=== PATIENT | male | born 1935 | race Caucasian/White ===

== ENCOUNTER 2016-06-06 17:17 | Inpatient (IN) | payer MEDICARE, OTHER ==
[2016-06-06] MEDS ORDERED: Acetaminophen 325 MG Tab PO ONE (17:30)
--- NOTE | 2016-06-06 17:30 | EDM.PDOC ---
ED HPI SEPSIS - General Chief Complaint: Fever Stated Complaint: [facility] Time Seen by Provider: 06/06/16 17:24 Source of Information: Reports: Patient, Family, [facility] records History Limitations: Reports: No limitations, Altered mental status (pleasantly confused. Tends to answer yes to all questions.) - History of Present Illness INITIAL COMMENTS - FREE TEXT/NARRATIVE: 80-year-old male who currently resides at [facility] home but to the hospital by ambulance. Apparently he is alert and oriented and gets around on his own volition without any problems. After his nap today he seemed to be a bit confused and disoriented and actually fell in the hallway. He states he just kind of got tripped up but he has mild organic brain disease and is moderately confused at the time of my exam. Nurses found him in the hallway and therefore his fall was unwitnessed. He denies hitting his head. He denies feeling nauseated or vomiting.family noticed that he is coughing a bit today but wasn't yesterday. Appetite has been good up until today. He always has hesitancy and slow urinary stream with nocturia usually 3-4 times nightly. Known have a big prostate. Unclear whether these had urinary tract infection problems in the past.Family is pretty sure that he did get a flu shot last fall. Symptom Onset Date: 06/06/16 Symptom Onset Time: 15:30 (seemed to be weak and noted fever 101 after getting up from his nap this afternoon) Timing/Duration: Reports: Hour(s):, Sudden onset Severity: moderate Improves with: Reports: None Worsens with: Reports: Movement Context: Denies: sick contact, infection, indwelling cath, IV, travel, chemotherapy, IV drug use, recent hospitalization, recent illness, recent surgery, other Associated Symptoms: Reports: confusion, weakness, cough, fever/chills, malaise ( reported by nursing staff.), other (illness and to start suddenly this afternoon after his nap. He ate a good dinner.). Denies: headaches, seizure, shortness of breath, syncope, chest pain, sputum, diaphoresis (101), loss of appetite, nausea/vomiting Treatments [employer]: Reports: Other (see below) (unclear if he is receiving medication for fever.) - Related Data Allergies/ADRs: Allergies Allergy/AdvReac Type Severity Reaction Status Date / Time No Known Allergies Allergy Verified 06/06/16 17:45 Home Meds: Home Meds Acetaminophen [Tylenol] 650 mg PO Q4H PRN 04/02/14 [History] Donepezil [Aricept] 10 mg PO BEDTIME 04/02/14 [History] Fesoterodine Fumarate [Toviaz] 4 mg PO DAILY 04/02/14 [History] Finasteride 5 mg PO DAILY 04/02/14 [History] Gabapentin [Neurontin] 300 mg PO DAILY 04/02/14 [History] Imatinib [Gleevec] 600 mg PO DAILY 04/02/14 [History] Mag Hydrox/Al Hydrox/Simeth [Mag-Al Plus XS] 30 ml PO Q4H PRN 04/02/14 [History] Meclizine [Antivert] 25 mg PO TID PRN 04/02/14 [History] Melatonin 3 mg PO BEDTIME 04/02/14 [History] Metoprolol Tartrate 50 mg PO BID 04/02/14 [History] Nystatin/Triamcinolone Crm [Mycolog Crm] 30 gm TOP BID PRN 04/02/14 [History] Omeprazole 20 mg PO DAILY 04/02/14 [History] Sennosides/Docusate Sodium [Senna S Tablet] 2 tab PO DAILY PRN 04/02/14 [History ] Tadalafil [Cialis] 20 mg PO DAILY PRN 04/02/14 [History] Tamsulosin [Flomax] 0.4 mg PO DAILY 04/02/14 [History] Warfarin [Coumadin] 2.5 mg PO WE 04/02/14 [History] atorvaSTATin [Lipitor] 10 mg PO BEDTIME 04/02/14 [History] sitaGLIPtin Phosphate [Januvia] 50 mg PO DAILY 04/02/14 [History] Warfarin [Coumadin] 5 mg PO SUMOTUTHFRSA 10/06/14 [History] Acetaminophen 650 mg PO BEDTIME 03/15/16 [History] Gabapentin [Neurontin] 300 mg PO BEDTIME 03/15/16 [History] Loperamide HCl [Anti-Diarrheal] 2 mg PO DAILY PRN 03/15/16 [History] Multivitamin [Multivitamins] 1 each PO DAILY 03/15/16 [History] Potassium Chloride [Klor-Con M20] 30 meq PO DAILY 03/16/16 [History] Sildenafil [Viagra] 1 tab PO DAILY PRN 03/23/16 [History] Bumetanide 2 oz PO DAILY 06/06/16 [History] Bumetanide [Bumex] 0.5 mg PO DAILY PRN MDD prn 06/06/16 [History] Digoxin [Lanoxin] 125 mcg PO DAILY 06/06/16 [History] Diltiazem [Cardizem CD] 240 mg PO DAILY 06/06/16 [History] Diphenhyd/Lidocaine/Nystatin [Magic Mouthwash] 15 ml PO TID 06/06/16 [History] Insulin Glarg,Human.Rec.Analog [Lantus] 10 units SUBCUT ASDIRECTED 06/06/16 [ History] Metoprolol Tartrate [Lopressor] 25 mg PO DAILY PRN 06/06/16 [History] Mupirocin Cream [Bactroban Crm] 1 applic TOP BID 06/06/16 [History] Nystatin [Mycostatin] 5 ml PO QID PRN 06/06/16 [History] Past Medical History HEENT History: Reports: Impaired vision Other HEENT History: eyeglasses Cardiovascular History: Reports: Afib, Heart Failure, High cholesterol, Hypertension, Pulmonary hypertension Respiratory History: Reports: Sleep apnea Other Respiratory History: uses a c-pap Gastrointestinal History: Reports: GERD Genitourinary History: Reports: BPH, Renal calculus, Other (see below) ( nocturia usually 4 times nightly.) Other Genitourinary History: pt is incontinent. wears biefs Psychiatric History: Reports: Anxiety Endocrine/Metabolic History: Reports: Diabetes, type II Other Hematologic History: CLL: leukemia hx Oncologic (Cancer) History: Reports: Leukemia Other Oncologic History: CLL: leukemia recent diagnosis of exacerbation of his CLL. He is for bone marrow aspiration and workup tomorrow.recently diagnosed with CML as well to Dermatologic History: Reports: Melanoma - Infectious Disease History Infectious Disease History: Reports: C-difficile, Shingles - Past Surgical History GI Surgical History: Reports: Appendectomy Male Surgical History: Reports: Lithotripsy (ES[facility]) Musculoskeletal Surgical History: Reports: Knee replacement Social & Family History - Family History Family Medical History: Noncontributory - Tobacco Use Smoking Status *Q: Never Smoker Second Hand Smoke Exposure: No - Caffeine Use Caffeine Use: Reports: Coffee Other Caffeine Use: 2 cups coffee - Alcohol Use Days Per Week of Alcohol Use: 0 Number of Drinks Per Day: 0 Total Drinks Per Week: 0 - Recreational Drug Use Recreational Drug Use: No - Living Situation & Occupation Living situation: Reports: alone, extended care facility (currently resides at [facility]), other (Resides at [facility]) Occupation: retired ED ROS GENERAL - Review of Systems Review Of Systems: See Below Constitutional: Reports: fever (noted this afternoon of 101.), malaise, weakness, fatigue, other (fell in the hallway at [place]. Unwitnessed. He was found on the floor) HEENT: Reports: Glasses. Denies: Ear pain, Eye discharge, Eye pain, Hearing loss, Nosebleed, Sinus problem, Throat pain, Throat swelling Respiratory: Reports: cough (reported cough although I did not hear him cough.) . Denies: shortness of breath, wheezing, pleuritic chest pain, hemoptysis Cardiovascular: Reports: Blood pressure problem (blood pressure is a little oh at time of initial assessment 95/42.), Dyspnea on exertion (chronically), Edema (chronically and lower extremities.). Denies: Chest pain Endocrine: Reports: fatigue GI/Abdominal: Reports: Constipation : Reports: frequency (slow urinary stream), other (nocturia x3 or 4) Musculoskeletal: Reports: neck pain, shoulder pain, back pain, joint pain (both knees have been totally replaced. Has some mild stiffness in his hips at times.) Skin: Reports: no symptoms Neurological: Reports: confusion (ositive short-term memory.). Denies: difficulty walking (to get around without a gait aid.) Hematologic/Lymphatic: Reports: no symptoms Immunologic: Reports: no symptoms ED EXAM, SEPSIS - Physical Exam Exam: See Below Exam Limited By: Altered mental status (mildly confused and therefore history is to be taken with a gr of salt. He tends to answer yes to almost all questions and keeps his eyes closed during the examination.) General Appearance: no apparent distress, other (no overt signs of trauma to his head neck chest or extremities.) Eye Exam: bilateral eye: periorbital changes (both upper and lower eyelids are edematous.), PERRL (no gaze palsy) Ears: normal TMs Throat/Mouth: Normal inspection, Normal lips, Normal oropharynx, Other (tongue is a little dry. He did not bite it.) Head: atraumatic, normocephalic Neck: normal inspection, supple, non-tender, full range of motion, carotid bruit (on the right side but it is referred from aortic stenosis murmur.). No: lymphadenopathy (L), lymphadenopathy (R) Respiratory/Chest: no respiratory distress, normal breath sounds, decreased breath sounds (decreased breath sounds to the lower 30% of lung see. Lungs are clear however.), other (note O2 sats only 89% on room air. He was therefore placed on 3 L per minute.) Cardiovascular: regular rate, rhythm, no gallop, no rub, JVD (mild 3 cm from the angle of his mandible.), systolic murmur (pansystolic murmur heard best at the left lower sternal border that radiates up towards the right carotid artery. Grade 3/6.). No: normal peripheral pulses, no edema Peripheral Pulses: 1+: posterior tibial (L), posterior tibial (R), dorsalis pedis (L), dorsalis pedis (R) GI/Abdominal: normal bowel sounds, soft, non tender, hepatomegaly (liver is palpable 4 fingerbreadths below the right costal margin. It is firm to palpation. Nontender.), splenomegaly (moderate. No to have chronic lymphocytic leukemia and recently diagnosed with CML as well.) (Male) Exam: No hernia, Normal inspection Back: normal inspection, full range of motion, other (no abrasions or contusions are found on his entire back or shoulders.). No: CVA tenderness (L) , CVA tenderness (R), vertebral tenderness Extremities: other (M. it is abnormal. He has 2+ pitting edema to both lower chimney is is currently wearing compression stockings bilaterally.) Neurological: no motor/sensory deficits (moves all limbs without any issues.), memory loss recent events, abnormal reflexes, other (Babinski is negative.). No : oriented Psychiatric: flat affect Skin: Warm, Intact, Normal color, Pallor (moderate), Other (warm to palpation.) EKG INTERPRETATION EKG Date: 06/06/16 Time: 16:50 Rhythm: other (regular rhythm of unclear etiology suspect slow junctional rhythm ) Rate (beats/min): 50 [place]: LAD-left axis deviation (-43) P-wave: absent QRS: LBBB ST-T: other (no signs of acute ischemia with ST-T wave changes.) QT: prolonged (markedly prolonged) Course - Vital Signs Last Recorded V/S: Last Vital Signs Temp 37.1 C 06/06/16 17:42 Pulse 52 L 06/06/16 17:22 Resp 13 06/06/16 17:22 BP 97/46 L 06/06/16 17:22 Pulse Ox 90 L 06/06/16 17:22 - Orders/Labs/Meds Orders: Active Orders 24 hr Category Date Time Status Blood Glucose Check, Bedside [RC] ONETIME Care 06/06/16 17:27 Active EKG Documentation Completion [RC] STAT Care 06/06/16 17:26 Active Oxygen Therapy [RC] ASDIRECTED Care 06/06/16 17:27 Active Chest 1V Frontal [CR] Stat Exams 06/06/16 17:26 Taken CULTURE BLOOD [BC] Stat Lab 06/06/16 17:50 Received CULTURE BLOOD [BC] Stat Lab 06/06/16 17:56 Received DIGOXIN [CHEM] Stat Lab 06/06/16 18:55 Ordered MAGNESIUM [CHEM] Stat Lab 06/06/16 18:55 Ordered PACKED CELLS [RED BLOOD CELLS LP] [BBK] Stat Lab 06/06/16 18:50 Ordered TYPE AND SCREEN [BBK] Stat Lab 06/06/16 18:50 Ordered URINALYSIS W/MICROSCOPIC [UA W/MICROSCOPIC] [URIN] Stat Lab 06/06/16 17:28 Uncollected Levofloxacin/Dextrose 5%-Water [Levaquin in D5W 750 MG/ Med 06/06/16 18:57 Ordered 150 ML] 750 mg Premix Bag 1 bag IV ONETIME Piperacillin/Tazobactam [Zosyn] 3.375 gm Med 06/06/16 19:00 Ordered Sodium Chloride 0.9% [Normal Saline] 100 ml IV Q6H Sodium Chloride 0.9% [Normal Saline] 1,000 ml Med 06/06/16 17:30 Active IV ASDIRECTED Blood Culture x2 Reflex Set [OM.PC] Stat Oth 06/06/16 17:27 Ordered Transfuse PRBC [Transfuse Red Blood Cells] [COMM] Oth 06/06/16 18:50 Ordered Routine Medication Orders Sodium Chloride (Normal Saline) 1,000 mls @ 100 mls/hr IV ASDIRECTED [facility] Last Admin: 06/06/16 17:42 Dose: 100 mls/hr Piperacillin Sod/Tazobactam (Sod 3.375 gm/ Sodium Chloride) 100 mls @ 25 mls/ hr IV Q6H [facility] Labs: Laboratory Tests 06/06/16 06/06/16 06/06/16 Range/Units 17:43 17:50 17:50 WBC 51.85 H (4.23-9.07) K/mm3 RBC 2.56 L (4.63-6.08) M/mm3 Hgb 8.0 L (13.7-17.5) gm/L Hct 25.9 L (40.1-51.0) % MCV 101.2 H (79.0-92.2) fl MCH 31.3 (25.7-32.2) pg MCHC 30.9 L (32.2-35.5) g/dl RDW Std Deviation 73.3 H (35.1-43.9) fL Plt Count 154 L (163-337) K/mm3 MPV 8.9 L (9.4-12.3) fl Neutrophils % (Manual) 8 L (40-60) % Band Neutrophils % 1 (0-10) % Lymphocytes % (Manual) 90 H (20-40) % Atypical Lymphs % 0 % Monocytes % (Manual) 1 L (2-10) % Eosinophils % (Manual) 0 L (0.8-7.0) % Basophils % (Manual) 0 L (0.2-1.2) Toxic Granulation 2+ moderate WBC Morphology Comment Platelet Estimate Adequate Hypochromasia 1+ slight Anisocytosis 1+ slight Microcytosis 1+ slight RBC Morph Comment Not Reportable Sodium 138 (136-145) mEq/L Potassium 3.0 L (3.5-5.1) mEq/L Chloride 100 (98-107) mEq/L Carbon Dioxide 33 H (21-32) mEq/L Anion Gap 8.0 (5-15) BUN 12 (7-18) mg/dL Creatinine 1.2 (0.7-1.3) mg/dL Est Cr Clr Drug Dosing 49.10 mL/min Estimated GFR (MDRD) 58 (>60) mL/min BUN/Creatinine Ratio 10.0 L (14-18) Glucose 135 H (83-115) mg/dL POC Glucose 135 H (83-110) mg/dL Calcium 8.0 L (8.5-10.1) mg/dL Total Bilirubin 0.6 (0.2-1.0) mg/dL AST 22 (15-37) U/L ALT 26 (16-63) U/L Alkaline Phosphatase 85 (46-116) U/L Troponin I 0.118 H* (0.00-0.056) ng/mL C-Reactive Protein 7.5 H* (<1.0) mg/dL B-Natriuretic Peptide (0-100) pg/mL Total Protein 5.2 L (6.4-8.2) g/dl Albumin 2.8 L (3.4-5.0) g/dl Globulin 2.4 gm/dL Albumin/Globulin Ratio 1.2 (1-2) 06/06/16 Range/Units 17:50 WBC (4.23-9.07) K/mm3 RBC (4.63-6.08) M/mm3 Hgb (13.7-17.5) gm/L Hct (40.1-51.0) % MCV (79.0-92.2) fl MCH (25.7-32.2) pg MCHC (32.2-35.5) g/dl RDW Std Deviation (35.1-43.9) fL Plt Count (163-337) K/mm3 MPV (9.4-12.3) fl Neutrophils % (Manual) (40-60) % Band Neutrophils % (0-10) % Lymphocytes % (Manual) (20-40) % Atypical Lymphs % % Monocytes % (Manual) (2-10) % Eosinophils % (Manual) (0.8-7.0) % Basophils % (Manual) (0.2-1.2) Toxic Granulation WBC Morphology Comment Platelet Estimate Hypochromasia Anisocytosis Microcytosis RBC Morph Comment Sodium (136-145) mEq/L Potassium (3.5-5.1) mEq/L Chloride (98-107) mEq/L Carbon Dioxide (21-32) mEq/L Anion Gap (5-15) BUN (7-18) mg/dL Creatinine (0.7-1.3) mg/dL Est Cr Clr Drug Dosing mL/min Estimated GFR (MDRD) (>60) mL/min BUN/Creatinine Ratio (14-18) Glucose (83-115) mg/dL POC Glucose (83-110) mg/dL Calcium (8.5-10.1) mg/dL Total Bilirubin (0.2-1.0) mg/dL AST (15-37) U/L ALT (16-63) U/L Alkaline Phosphatase (46-116) U/L Troponin I (0.00-0.056) ng/mL C-Reactive Protein (<1.0) mg/dL B-Natriuretic Peptide 664 H (0-100) pg/mL Total Protein (6.4-8.2) g/dl Albumin (3.4-5.0) g/dl Globulin gm/dL Albumin/Globulin Ratio (1-2) Meds: Medications Generic Name Dose Route Start Last Admin Trade Name Freq PRN Reason Stop Dose Admin Sodium Chloride 1,000 mls @ 100 mls/hr 06/06/16 17:30 06/06/16 17:42 Normal Saline IV 100 mls/hr ASDIRECTED KAREN Administration Piperacillin Sod/Tazobactam 100 mls @ 25 mls/hr 06/06/16 19:00 Sod 3.375 gm/ Sodium Chloride IV Q6H KAREN Discontinued Medications Generic Name Dose Route Start Last Admin Trade Name Freq PRN Reason Stop Dose Admin Acetaminophen 650 mg 06/06/16 17:30 06/06/16 17:42 Tylenol PO 06/06/16 17:31 650 mg NOW ONE Administration Furosemide 40 mg 06/06/16 18:54 Lasix IVPUSH 06/06/16 18:55 NOW ONE - Radiology Interpretation Free Text/Narrative:: 80-year-old male sent to the ED per ambulance from [facility]. The patient apparently was well this morning and ate a good dinner. After his nap however he seemed to be somewhat confused and disoriented and actually fell in the hallway. She was found on the whole in the hallway propped up against the wall. Patient does remember what happened to him. It's unclear whether he struck his head or not. He did identify that he had fever of 101 which he did not have prior to his nap. Also his family is appreciative that he is coughing a bit today which she was not yesterday. He is mildly confused and particularly in regards to short-term memory events. There is no outward signs of trauma to his head neck chest or limbs. He is mildly warm to palpation. No influenza is evident at [place]. He did have a flu shot. History of BPH unclear whether he said would treat urinary tract infections.history of chronic lymphocytic leukemia and more recently CML. He did try a course of chemotherapy approximately 3 weeks ago but made about a half of course before all of his numbers dropped badly. He was in hospital and required 4 units of blood. Today he looks quite pallid once again.on speaking with the family they appreciated he 's much more confused than he ever been before. This may be from fever. Of note he could have been involvement of leukemia. He is severely immunocompromised due to to his leukemia.plan he'll have a septic workup carried out. One view chest x-ray urine by catheterization. Influenza screen. Antibiotics will be started soon as blood cultures x2 are collected. - Re-Assessments/Exams Free Text/Narrative Re-Assessment/Exam: 06/06/16 18:10: chest x-ray reveals moderate cardiomegaly but visualized portions of the lung see appear clear without signs of effusion or pneumonia.CT of his brain reveals advanced degenerative changes with small vessel ischemic changes in both basal ganglia. No evidence of intracranial bleeding or skull fracture evident. 06/06/16 18:58 Labs reveal a white count of 51.85 with his leukemic state. Differential reveals 8 neutrophils one band cell and 90% lymphocytes. Hemoglobin is 8.0 and therefore he will be crossmatched for 2 units of packed cells. Hematocrit is 25.9 MCV is 101.2. Platelets are satisfactory at 154,000. Sodium was 138 potassium is low at 3.0. Will give potassium 10 mEq IV over an hour. Bicarbonate is elevated at 33 meaning he is a CO2 retainer. Glucose 135. Troponin is elevated at 0.118 likely secondary to congestive failure. CRP is 7.5 BNP 664. Albumin low at 2.8. Serum magnesium is pending. He we just were able to obtain a urinalysis. Therefore he will start antibiotic Zosyn 3.75 g IV now and this will be followed by Levaquin 750 mg IV. Spoke with family at length and asked the patient about CODE STATUS and he still wishes to remain code level I. That means that if his heart stopped he would like us to try and restart it and to provide full resuscitative efforts. Case discussed with on- call hospitalist Dr. Campbell guardado the patient will be admitted to the [facility] surgery floor as an inpatient.consent to be signed for blood transfusion. I will give him Lasix 40 IV now and I would plan on giving him 40 mg of Lasix in between first and second units of packed red cells when they become available.Family is well aware that the prognosis is extremely guarded. They were to see oncology in the next week Tuesday in regards to whether or not to pursue further chemotherapy. The patient would like to do so. 06/06/16 19:11 urinalysis is pending.serum and and digoxin and magnesium are also pending. Departure - Departure Time of Disposition: 19:08 Disposition: Admitted As Inpatient 66 Condition: critical Clinical Impression: Chronic lymphocytic leukemia, Chronic myelogenous leukemia, Hypokalemia, Acute febrile illness, History of immunocompromised state Anemia Qualifiers: Anemia type: other cause Other causes of anemia: other cause, not classified Qualified Code(s): D64.89 - Other specified anemias Forms: ED Department Discharge - My Orders Last 24 Hours: My Active Orders 06/06/16 17:26 EKG Documentation Completion [RC] STAT Chest 1V Frontal [CR] Stat 06/06/16 17:27 Blood Glucose Check, Bedside [RC] ONETIME Oxygen Therapy [RC] ASDIRECTED Blood Culture x2 Reflex Set [OM.PC] Stat 06/06/16 17:28 URINALYSIS W/MICROSCOPIC [UA W/MICROSCOPIC] [URIN] Stat 06/06/16 17:30 Sodium Chloride 0.9% [Normal Saline] 1,000 ml IV ASDIRECTED 06/06/16 17:50 CULTURE BLOOD [BC] Stat 06/06/16 17:56 CULTURE BLOOD [BC] Stat 06/06/16 18:50 PACKED CELLS [RED BLOOD CELLS LP] [BBK] Stat TYPE AND SCREEN [BBK] Stat Transfuse PRBC [Transfuse Red Blood Cells] [COMM] Routine 06/06/16 18:55 DIGOXIN [CHEM] Stat MAGNESIUM [CHEM] Stat 06/06/16 18:57 Levofloxacin/Dextrose 5%-Water [Levaquin in D5W 750 MG/150 ML] 750 mg Premix Bag 1 bag IV ONETIME 06/06/16 19:00 Piperacillin/Tazobactam [Zosyn] 3.375 gm Sodium Chloride 0.9% [Normal Saline] 100 ml IV Q6H - Assessment/Plan Last 24 Hours: My Active Orders 06/06/16 17:26 EKG Documentation Completion [RC] STAT Chest 1V Frontal [CR] Stat 06/06/16 17:27 Blood Glucose Check, Bedside [RC] ONETIME Oxygen Therapy [RC] ASDIRECTED Blood Culture x2 Reflex Set [OM.PC] Stat 06/06/16 17:28 URINALYSIS W/MICROSCOPIC [UA W/MICROSCOPIC] [URIN] Stat 06/06/16 17:30 Sodium Chloride 0.9% [Normal Saline] 1,000 ml IV ASDIRECTED 06/06/16 17:50 CULTURE BLOOD [BC] Stat 06/06/16 17:56 CULTURE BLOOD [BC] Stat 06/06/16 18:50 PACKED CELLS [RED BLOOD CELLS LP] [BBK] Stat TYPE AND SCREEN [BBK] Stat Transfuse PRBC [Transfuse Red Blood Cells] [COMM] Routine 06/06/16 18:55 DIGOXIN [CHEM] Stat MAGNESIUM [CHEM] Stat 06/06/16 18:57 Levofloxacin/Dextrose 5%-Water [Levaquin in D5W 750 MG/150 ML] 750 mg Premix Bag 1 bag IV ONETIME 06/06/16 19:00 Piperacillin/Tazobactam [Zosyn] 3.375 gm Sodium Chloride 0.9% [Normal Saline] 100 ml IV Q6H
[2016-06-06] MEDS: Sodium Chloride 0.9% 1,000 ML IV SCH (17:42)
--- NOTE | 2016-06-06 18:36 | CT ---
Head CT Technique: Multiple axial sections through the brain were obtained. Intravenous contrast was not utilized. Comparison: Previous head CT study of 03/24/16. Findings: Ventricles along with basal cisterns and sulci over the convexities are moderately prominent. Very slight diminished density is noted within the periventricular white matter compatible with minimal small vessel ischemic demyelination change. Minimal areas of diminished density are noted within the basal ganglia which is felt compatible with similar etiology. No other abnormal parenchymal densities are seen. No evidence of intracranial hemorrhage. No midline shift or mass effect is seen. Mild atherosclerotic calcification is seen within the left vertebral vessel and within the carotid siphons. Bone window settings were reviewed which shows no discrete calvarial abnormality. Visualized paranasal sinuses and mastoid sinuses are clear. Middle ear cavities are clear. Impression: 1. Mild senescent change. 2. No acute intracranial abnormality is appreciated. Diagnostic code #2
[2016-06-06] MEDS ORDERED: Furosemide 40 MG/4 ML VIAL IVPUSH ONE (18:54)
[2016-06-06] MEDS ORDERED: Levofloxacin/Dextrose 5%-Water 750 MG in Premix Bag 1 BAG IV ONE (18:57)
[2016-06-06] MEDS ORDERED: Piperacillin/Tazobactam 3.375 GM in Sodium Chloride 0.9% 100 ML IV SCH (19:00)
[2016-06-06] MEDS ORDERED: Potassium Chloride 10 MEQ in Premix Bag 1 BAG IV SCH (19:15)
[2016-06-06] MEDS ORDERED: Polyethylene Glycol 3350 Powder 17 GM Packet PO PRN (19:17)
[2016-06-06] MEDS ORDERED: Ondansetron 4 MG/2 ML SDV IV PRN (19:17)
[2016-06-06] MEDS ORDERED: Bisacodyl 5 MG Tab PO PRN (19:17)
[2016-06-06] MEDS ORDERED: HYDROmorphone 1 MG/ML Syringe IVPUSH PRN (19:17)
[2016-06-06] MEDS ORDERED: Promethazine 12.5 MG in Sodium Chloride 0.9% 50 ML IV PRN (19:17)
[2016-06-06] MEDS ORDERED: Nystatin Susp 100,000 Unit/ML 5 ML UD Cup PO PRN (19:20)
[2016-06-06] MEDS ORDERED: Metoprolol Tartrate 25 MG Tab PO PRN (19:20)
[2016-06-06] MEDS ORDERED: Bumetanide 1 MG Tab PO PRN (19:20)
[2016-06-06] MEDS ORDERED: Loperamide 2 MG Cap PO PRN (19:20)
[2016-06-06] MEDS ORDERED: 50% Dextrose in Water 50 ML Syringe IVPUSH PRN (19:25)
[2016-06-06] MEDS ORDERED: INSULIN GLARG HUMAN REC ANALOG SUBCUT SCH (19:30)
[2016-06-06] MEDS ORDERED: Vancomycin 1 GM, Vancomycin 500 MG in Sodium Chloride 0.9% 500 ML IV SCH (19:30)
[2016-06-06] MEDS ORDERED: Warfarin 10 MG Tab PO SCH (19:30)
--- NOTE | 2016-06-06 19:30 | PCM.HP ---
H&P History of Present Illness - General Date of Service: 06/06/16 Admit Problem/Dx: Admission Diagnosis/Problem Admission Diagnosis/Problem Fever of unknown origin Source of Information: Patient, Family, Old records, Provider, RN notes reviewed History Limitations: Reports: No limitations - History of Present Illness Initial Comments - Free Text/Narative: This is a an 80 elderly white male with past medical hx/o Chronic Atrial Fibrillation on Warfarin, HF with Preserved EF 55% and Grade 2 Diastolic Dysfunction 05/17/2015, HTN, HLD, Pulmonary Hypertension, NORMA on CPA, GERD, DM2, Peripheral Neuropathy, Urinary Retention, ED and Obesity who comes in with complaints of fever and AMS. Patient had a temp noted at 101 today after getting up from his afternoon nap per staff at the [facility]. His associated symptoms include cough, weakness, more confused than usual, and malaise. Additionally, patient also had an unwitnessed fall in the hallway at the facility where he lives. 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 He follows Dr. Haddad at [facility]. His initial work up in ED shows a CBC remarkable for WBC 5.81, Hgb 8, MCV 101.2 , Platelet 154 and Neutrophils of 8%. His chemistry is significant for K 3, BS 135, Ca 8, Mg 1.5, Troponin 0.118, CRP 7.5, BNP 664 and Albumin 2.8. His CXR and Head CT scan both shows no acute abnormal findings. Patient was referred to me for Multiple Issues: FUO, AMS, Acute on Chronic Anemia, Status Post Fall, Mild HF Exacerbation and Elevated Troponin Level. He is full code. - Related Data Allergies/Adverse Reactions: Allergies Allergy/AdvReac Type Severity Reaction Status Date / Time No Known Allergies Allergy Verified 06/06/16 17:45 Home Medications: Home Meds Acetaminophen [Tylenol] 650 mg PO Q4H PRN 04/02/14 [History] Donepezil [Aricept] 10 mg PO BEDTIME 04/02/14 [History] Fesoterodine Fumarate [Toviaz] 4 mg PO DAILY 04/02/14 [History] Finasteride 5 mg PO DAILY 04/02/14 [History] Gabapentin [Neurontin] 300 mg PO DAILY 04/02/14 [History] Imatinib [Gleevec] 600 mg PO DAILY 04/02/14 [History] Mag Hydrox/Al Hydrox/Simeth [Mag-Al Plus XS] 30 ml PO Q4H PRN 04/02/14 [History] Meclizine [Antivert] 25 mg PO TID PRN 04/02/14 [History] Melatonin 3 mg PO BEDTIME 04/02/14 [History] Metoprolol Tartrate 50 mg PO BID 04/02/14 [History] Nystatin/Triamcinolone Crm [Mycolog Crm] 30 gm TOP BID PRN 04/02/14 [History] Omeprazole 20 mg PO DAILY 04/02/14 [History] Sennosides/Docusate Sodium [Senna S Tablet] 2 tab PO DAILY PRN 04/02/14 [History ] Tadalafil [Cialis] 20 mg PO DAILY PRN 04/02/14 [History] Tamsulosin [Flomax] 0.4 mg PO DAILY 04/02/14 [History] Warfarin [Coumadin] 2.5 mg PO WE 04/02/14 [History] atorvaSTATin [Lipitor] 10 mg PO BEDTIME 04/02/14 [History] sitaGLIPtin Phosphate [Januvia] 50 mg PO DAILY 04/02/14 [History] Warfarin [Coumadin] 5 mg PO SUMOTUTHFRSA 10/06/14 [History] Acetaminophen 650 mg PO BEDTIME 03/15/16 [History] Gabapentin [Neurontin] 300 mg PO BEDTIME 03/15/16 [History] Loperamide HCl [Anti-Diarrheal] 2 mg PO DAILY PRN 03/15/16 [History] Multivitamin [Multivitamins] 1 each PO DAILY 03/15/16 [History] Potassium Chloride [Klor-Con M20] 30 meq PO DAILY 03/16/16 [History] Sildenafil [Viagra] 1 tab PO DAILY PRN 03/23/16 [History] Bumetanide 2 oz PO DAILY 06/06/16 [History] Bumetanide [Bumex] 0.5 mg PO DAILY PRN MDD prn 06/06/16 [History] Digoxin [Lanoxin] 125 mcg PO DAILY 06/06/16 [History] Diltiazem [Cardizem CD] 240 mg PO DAILY 06/06/16 [History] Diphenhyd/Lidocaine/Nystatin [Magic Mouthwash] 15 ml PO TID 06/06/16 [History] Insulin Glarg,Human.Rec.Analog [Lantus] 10 units SUBCUT ASDIRECTED 06/06/16 [ History] Metoprolol Tartrate [Lopressor] 25 mg PO DAILY PRN 06/06/16 [History] Mupirocin Cream [Bactroban Crm] 1 applic TOP BID 06/06/16 [History] Nystatin [Mycostatin] 5 ml PO QID PRN 06/06/16 [History] Past Medical History HEENT History: Reports: Impaired vision Other HEENT History: eyeglasses Cardiovascular History: Reports: Afib, Heart Failure, High cholesterol, Hypertension, Pulmonary hypertension Respiratory History: Reports: Sleep apnea Other Respiratory History: uses a c-pap Gastrointestinal History: Reports: GERD Genitourinary History: Reports: BPH, Renal calculus, Other (see below) ( nocturia usually 4 times nightly.) Other Genitourinary History: pt is incontinent. wears biefs Psychiatric History: Reports: Anxiety Endocrine/Metabolic History: Reports: Diabetes, type II Other Hematologic History: CLL: leukemia hx Oncologic (Cancer) History: Reports: Leukemia Other Oncologic History: CLL: leukemia recent diagnosis of exacerbation of his CLL. He is for bone marrow aspiration and workup tomorrow.recently diagnosed with CML as well to Dermatologic History: Reports: Melanoma - Infectious Disease History Infectious Disease History: Reports: C-difficile, Shingles - Past Surgical History GI Surgical History: Reports: Appendectomy Male Surgical History: Reports: Lithotripsy (ESWL) Musculoskeletal Surgical History: Reports: Knee replacement Social & Family History - Family History Family Medical History: Noncontributory - Tobacco Use Smoking Status *Q: Never Smoker Second Hand Smoke Exposure: No - Caffeine Use Caffeine Use: Reports: Coffee Other Caffeine Use: 2 cups coffee - Alcohol Use Days Per Week of Alcohol Use: 0 Number of Drinks Per Day: 0 Total Drinks Per Week: 0 - Recreational Drug Use Recreational Drug Use: No - Living Situation & Occupation Living situation: Reports: alone, extended care facility (currently resides at [place] [facility]), other (Resides at [facility]) Occupation: retired H&P Review of Systems - Review of Systems: Review Of Systems: See Below General: Reports: fever, chills, malaise, weakness HEENT: Reports: no symptoms Pulmonary: Reports: shortness of breath, cough Cardiovascular: Reports: no symptoms Gastrointestinal: Denies: Abdominal pain, Nausea, Vomiting Genitourinary: Reports: incontinence Musculoskeletal: Reports: no symptoms Psychiatric: Reports: confusion. Denies: anxiety, hallucinations Neurological: Reports: weakness Hematologic/Lymphatic: Reports: anemia, easy bruising Immunologic: Reports: no symptoms Exam - Exam Exam: See Below - Vital Signs Vital Signs: Last Vital Signs Temp 37.1 C 06/06/16 17:42 Pulse 52 L 06/06/16 17:22 Resp 13 06/06/16 17:22 BP 97/46 L 06/06/16 17:22 Pulse Ox 90 L 06/06/16 17:22 Weight: 92.533 kg - Exam Quality Assessment: supplemental oxygen General: alert, oriented, cooperative, mild distress, other (Obese) HEENT: Conjunctiva clear, EACs clear, EOMI, Hearing intact, Mucosa moist & pink , Posterior pharynx clear, PERRLA Neck: supple, trachea midline Lungs: Normal respiratory effort, Decreased breath sounds, Crackles Cardiovascular: irregular rhythm, other (irregular rate) Abdomen: normal bowel sounds, soft, organomegaly (Male) Exam: Deferred Rectal (Males) Exam: Deferred Back Exam: normal inspection, decreased range of motion Extremities: normal inspection, normal pulses. No: clubbing, cyanosis, calf tenderness, edema Peripheral Pulses: 2+: posterior tibial (L), posterior tibial (R), dorsalis pedis (L), dorsalis pedis (R) Skin: warm, dry, intact Neuro Extensive - Mental Status: oriented x3, normal cognition, memory intact, nl response to commands Neuro Extensive - Motor, Sensory, Reflexes: CN II-XII intact Psychiatric: alert, normal affect, normal mood - Patient Data Lab Results last 24 hrs: Laboratory Results - last 24 hr 06/06/16 06/06/16 06/06/16 Range/Units 17:43 17:50 17:50 WBC 51.85 H (4.23-9.07) K/mm3 RBC 2.56 L (4.63-6.08) M/mm3 Hgb 8.0 L (13.7-17.5) gm/L Hct 25.9 L (40.1-51.0) % MCV 101.2 H (79.0-92.2) fl MCH 31.3 (25.7-32.2) pg MCHC 30.9 L (32.2-35.5) g/dl RDW Std Deviation 73.3 H (35.1-43.9) fL Plt Count 154 L (163-337) K/mm3 MPV 8.9 L (9.4-12.3) fl Neutrophils % (Manual) 8 L (40-60) % Band Neutrophils % 1 (0-10) % Lymphocytes % (Manual) 90 H (20-40) % Atypical Lymphs % 0 % Monocytes % (Manual) 1 L (2-10) % Eosinophils % (Manual) 0 L (0.8-7.0) % Basophils % (Manual) 0 L (0.2-1.2) Toxic Granulation 2+ moderate WBC Morphology Comment Platelet Estimate Adequate Hypochromasia 1+ slight Anisocytosis 1+ slight Microcytosis 1+ slight RBC Morph Comment Not Reportable Sodium 138 (136-145) mEq/L Potassium 3.0 L (3.5-5.1) mEq/L Chloride 100 (98-107) mEq/L Carbon Dioxide 33 H (21-32) mEq/L Anion Gap 8.0 (5-15) BUN 12 (7-18) mg/dL Creatinine 1.2 (0.7-1.3) mg/dL Est Cr Clr Drug Dosing 49.10 mL/min Estimated GFR (MDRD) 58 (>60) mL/min BUN/Creatinine Ratio 10.0 L (14-18) Glucose 135 H (83-115) mg/dL POC Glucose 135 H (83-110) mg/dL Calcium 8.0 L (8.5-10.1) mg/dL Magnesium (1.8-2.4) mg/dl Total Bilirubin 0.6 (0.2-1.0) mg/dL AST 22 (15-37) U/L ALT 26 (16-63) U/L Alkaline Phosphatase 85 (46-116) U/L Troponin I 0.118 H* (0.00-0.056) ng/mL C-Reactive Protein 7.5 H* (<1.0) mg/dL B-Natriuretic Peptide (0-100) pg/mL Total Protein 5.2 L (6.4-8.2) g/dl Albumin 2.8 L (3.4-5.0) g/dl Globulin 2.4 gm/dL Albumin/Globulin Ratio 1.2 (1-2) Urine Color (Yellow) Urine Appearance (Clear) Urine pH (5.0-8.0) Ur Specific [place] (1.005-1.030) Urine Protein (Negative) Urine Glucose (UA) (Negative) Urine Ketones (Negative) Urine Occult Blood (Negative) Urine Nitrite (Negative) Urine Bilirubin (Negative) Urine Urobilinogen (0.2-1.0) Ur Leukocyte Esterase (Negative) Digoxin (0.9-2.0) ng/mL 06/06/16 06/06/16 06/06/16 Range/Units 17:50 17:50 18:54 WBC (4.23-9.07) K/mm3 RBC (4.63-6.08) M/mm3 Hgb (13.7-17.5) gm/L Hct (40.1-51.0) % MCV (79.0-92.2) fl MCH (25.7-32.2) pg MCHC (32.2-35.5) g/dl RDW Std Deviation (35.1-43.9) fL Plt Count (163-337) K/mm3 MPV (9.4-12.3) fl Neutrophils % (Manual) (40-60) % Band Neutrophils % (0-10) % Lymphocytes % (Manual) (20-40) % Atypical Lymphs % % Monocytes % (Manual) (2-10) % Eosinophils % (Manual) (0.8-7.0) % Basophils % (Manual) (0.2-1.2) Toxic Granulation WBC Morphology Comment Platelet Estimate Hypochromasia Anisocytosis Microcytosis RBC Morph Comment Sodium (136-145) mEq/L Potassium (3.5-5.1) mEq/L Chloride (98-107) mEq/L Carbon Dioxide (21-32) mEq/L Anion Gap (5-15) BUN (7-18) mg/dL Creatinine (0.7-1.3) mg/dL Est Cr Clr Drug Dosing mL/min Estimated GFR (MDRD) (>60) mL/min BUN/Creatinine Ratio (14-18) Glucose (83-115) mg/dL POC Glucose (83-110) mg/dL Calcium (8.5-10.1) mg/dL Magnesium 1.5 L (1.8-2.4) mg/dl Total Bilirubin (0.2-1.0) mg/dL AST (15-37) U/L ALT (16-63) U/L Alkaline Phosphatase (46-116) U/L Troponin I (0.00-0.056) ng/mL C-Reactive Protein (<1.0) mg/dL B-Natriuretic Peptide 664 H (0-100) pg/mL Total Protein (6.4-8.2) g/dl Albumin (3.4-5.0) g/dl Globulin gm/dL Albumin/Globulin Ratio (1-2) Urine Color Yellow (Yellow) Urine Appearance Clear (Clear) Urine pH 7.0 (5.0-8.0) Ur Specific [place] 1.015 (1.005-1.030) Urine Protein Trace H (Negative) Urine Glucose (UA) Negative (Negative) Urine Ketones Negative (Negative) Urine Occult Blood 2+ H (Negative) Urine Nitrite Negative (Negative) Urine Bilirubin Negative (Negative) Urine Urobilinogen 0.2 (0.2-1.0) Ur Leukocyte Esterase Negative (Negative) Digoxin 0.8 L (0.9-2.0) ng/mL Result Diagrams: 06/06/16 17:50 06/06/16 17:50 Baltazar Results last 24 hrs: Microbiology 06/06/16 17:38 Influenza Type A Antigen Screen - Final Nasopharyngeal Swab - Nare, Unspecified NEGATIVE INFLUENZA A VIRUS AG Influenza Type B Antigen Screen - Final NEGATIVE INFLUENZA B VIRUS AG *Q Meaningful Use (ADM) - VTE *Q VTE Criteria *Q: - Stroke *Q Stroke Criteria *Q: - AMI *Q AMI Criteria *Q: Problem List Initiated/Reviewed/Updated: Yes Orders Last 24hrs: Active Orders 24 hr Category Date Time Status Admission Status [Patient Status] [ADT] Routine ADT 06/06/16 19:11 Active Blood Glucose Check, Bedside [RC] ONETIME Care 06/06/16 17:27 Active Blood Glucose Check, Bedside [RC] QIDACANDBED Care 06/06/16 19:25 Active Cardiac Monitoring [RC] CONTINUOUS Care 06/06/16 19:17 Ordered EKG Documentation Completion [RC] STAT Care 06/06/16 17:26 Active Height and Weight [RC] DAILY Care 06/06/16 19:17 Ordered Intake and Output [RC] QSHIFT Care 06/06/16 19:17 Ordered Neurological Monitoring [RC] ASDIRECTED Care 06/06/16 19:27 Active Oxygen Therapy [RC] ASDIRECTED Care 06/06/16 17:27 Active Oxygen Therapy [RC] PRN Care 06/06/16 19:17 Ordered Up With Assistance [RC] ASDIRECTED Care 06/06/16 19:17 Ordered Up ad Bianca [RC] ASDIRECTED Care 06/06/16 19:17 Ordered VTE/DVT Education [RC] PER UNIT ROUTINE Care 06/06/16 19:17 Ordered Vital Signs [RC] Q4H Care 06/06/16 19:17 Ordered Consult to Case Management [CONS] Routine Cons 06/06/16 19:19 Ordered Consult to Supervisor Nurse [CONS] Routine Cons 06/06/16 19:19 Ordered OT Evaluation and Treatment [CONS] Routine Cons 06/06/16 19:19 Ordered PT Evaluation and Treatment [CONS] Routine Cons 06/06/16 19:19 Ordered Respiratory Care Assess and Treatment [CONS] Routine Cons 06/06/16 19:19 Ordered 2 Gram Sodium Diet [DIET] Diet 06/06/16 Dinner Ordered Consistent Carbohydrate Diet [DIET] Diet 06/06/16 Dinner Ordered Chest 1V Frontal [CR] Stat Exams 06/06/16 17:26 Taken BASIC METABOLIC PANEL,BMP [CHEM] AM Lab 06/07/16 05:11 Ordered BASIC METABOLIC PANEL,BMP [CHEM] AM Lab 06/08/16 05:11 Ordered BASIC METABOLIC PANEL,BMP [CHEM] AM Lab 06/09/16 05:11 Ordered BASIC METABOLIC PANEL,BMP [CHEM] AM Lab 06/10/16 05:11 Ordered BASIC METABOLIC PANEL,BMP [CHEM] AM Lab 06/11/16 05:11 Ordered C-REACTIVE PROTEIN [CHEM] AM Lab 06/07/16 05:11 Ordered C-REACTIVE PROTEIN [CHEM] AM Lab 06/08/16 05:11 Ordered C-REACTIVE PROTEIN [CHEM] AM Lab 06/09/16 05:11 Ordered C-REACTIVE PROTEIN [CHEM] AM Lab 06/10/16 05:11 Ordered C-REACTIVE PROTEIN [CHEM] AM Lab 06/11/16 05:11 Ordered CBC WITH AUTO DIFF [HEME] AM Lab 06/07/16 05:11 Ordered CBC WITH AUTO DIFF [HEME] AM Lab 06/08/16 05:11 Ordered CBC WITH AUTO DIFF [HEME] AM Lab 06/09/16 05:11 Ordered CBC WITH AUTO DIFF [HEME] AM Lab 06/10/16 05:11 Ordered CBC WITH AUTO DIFF [HEME] AM Lab 06/11/16 05:11 Ordered CULTURE BLOOD [BC] Stat Lab 06/06/16 17:50 Received CULTURE BLOOD [BC] Stat Lab 06/06/16 17:56 Received CULTURE URINE [RM] Stat Lab 06/06/16 19:19 Uncollected INR,PT,PROTHROMBIN TIME [COAG] AM Lab 06/07/16 05:11 Ordered INR,PT,PROTHROMBIN TIME [COAG] AM Lab 06/08/16 05:11 Ordered INR,PT,PROTHROMBIN TIME [COAG] AM Lab 06/09/16 05:11 Ordered INR,PT,PROTHROMBIN TIME [COAG] AM Lab 06/10/16 05:11 Ordered INR,PT,PROTHROMBIN TIME [COAG] AM Lab 06/11/16 05:11 Ordered PACKED CELLS [RED BLOOD CELLS LP] [BBK] Stat Lab 06/06/16 18:50 Ordered TYPE AND SCREEN [BBK] Stat Lab 06/06/16 18:50 Ordered URINALYSIS W/MICROSCOPIC [UA W/MICROSCOPIC] [URIN] Stat Lab 06/06/16 18:54 Results Acetaminophen [Tylenol] Med 06/06/16 19:17 Ordered 650 mg PO Q4H PRN Acetaminophen/HYDROcodone [Llano 325-5 MG] Med 06/06/16 19:17 Ordered 1 tab PO Q4H PRN Bisacodyl [Dulcolax] Med 06/06/16 19:17 Ordered 5 mg PO DAILY PRN Bumetanide [Bumetanide] Med 06/07/16 09:00 Ordered 2 oz PO DAILY Bumetanide [Bumex] Med 06/06/16 19:20 Ordered 0.5 mg PO DAILY PRN Dextrose 50% in Water Med 06/06/16 19:25 Active 50 ml IVPUSH ASDIRECTED PRN Digoxin [Lanoxin] Med 06/07/16 09:00 Ordered 125 mcg PO DAILY Diltiazem [Cardizem CD] Med 06/07/16 09:00 Ordered 240 mg PO DAILY Diphenhyd/Lidocaine/Nystatin Med 06/06/16 21:00 Ordered 15 ml PO TID Docusate Sodium/Sennosides [Senna Plus] Med 06/06/16 19:17 Ordered 1 tab PO BID PRN Docusate Sodium/Sennosides [Senna Plus] Med 06/06/16 19:20 Ordered 2 tab PO DAILY PRN Donepezil [Aricept] Med 06/06/16 21:00 Ordered 10 mg PO BEDTIME Fesoterodine Fumarate [Toviaz] Med 06/07/16 09:00 Ordered 4 mg PO DAILY Finasteride [Proscar] Med 06/07/16 09:00 Ordered 5 mg PO DAILY Gabapentin [Neurontin] Med 06/06/16 21:00 Ordered 300 mg PO BEDTIME Gabapentin [Neurontin] Med 06/07/16 09:00 Ordered 300 mg PO DAILY HYDROmorphone [Dilaudid] Med 06/06/16 19:17 Ordered 0.25 mg IVPUSH Q2H PRN Imatinib [Gleevec] Med 06/07/16 09:00 Ordered 600 mg PO DAILY Insulin Aspart [NovoLOG] Med 06/06/16 22:00 Active See Protocol SUBCUT QIDACANDBED Insulin Glarg,Human.Rec.Analog Med 06/06/16 19:30 Ordered 10 units SUBCUT ASDIRECTED LORazepam [Ativan] Med 06/06/16 19:17 Ordered 0.5 mg IV Q6H PRN Levofloxacin/Dextrose 5%-Water [Levaquin in D5W 500 MG/ Med 06/06/16 19:30 Active 100 ML] 500 mg Premix Bag 1 bag IV Q24H Levofloxacin/Dextrose 5%-Water [Levaquin in D5W 750 MG/ Med 06/06/16 18:57 Active 150 ML] 750 mg Premix Bag 1 bag IV ONETIME Loperamide [Imodium] Med 06/06/16 19:20 Ordered 2 mg PO DAILY PRN Mag Hydrox/Al Hydrox/Simeth [Mag-Al Plus XS] Med 06/06/16 19:20 Ordered 30 ml PO Q4H PRN Magnesium Rep Pharmacy to Dose [Pharmacy to Dose - Med 06/06/16 19:30 Ordered Magnesium Replacement] 1 dose .XX ASDIRECTED Meclizine Med 06/06/16 19:20 Ordered 25 mg PO TID PRN Melatonin Med 06/06/16 21:00 Ordered 3 mg PO BEDTIME Metoprolol Tartrate [Lopressor] Med 06/06/16 19:20 Ordered 25 mg PO DAILY PRN Metoprolol Tartrate [Lopressor] Med 06/06/16 21:00 Ordered 50 mg PO BID Multivitamin [Multivitamins] Med 06/07/16 09:00 Ordered 1 each PO DAILY Mupirocin Cream Med 06/06/16 21:00 Ordered 1 applic TOP BID Nystatin [Mycostatin] Med 06/06/16 19:20 Ordered 5 ml PO QID PRN Nystatin/Triamcinolone Crm Med 06/06/16 19:20 Ordered 30 gm TOP BID PRN Omeprazole Med 06/07/16 09:00 Ordered 20 mg PO DAILY Ondansetron [Zofran] Med 06/06/16 19:17 Ordered 4 mg IV Q6H PRN Piperacillin/Tazobactam [Zosyn] 3.375 gm Med 06/06/16 19:00 Active Sodium Chloride 0.9% [Normal Saline] 100 ml IV Q6H Polyethylene Glycol 3350 [MiraLAX] Med 06/06/16 19:17 Ordered 17 gm PO DAILY PRN Potassium Chloride [KCl 10 MEQ in Water 100 ML] 10 meq Med 06/06/16 19:15 Active Premix Bag 1 bag IV ASDIRECTED Potassium Chloride [Klor-Con M20] Med 06/07/16 09:00 Ordered 30 meq PO DAILY Potassium Rep Pharmacy to Dose [Pharmacy to Dose - Med 06/06/16 19:30 Ordered Potassium Replacement] 1 dose .XX ASDIRECTED Promethazine [Phenergan] 12.5 mg Med 06/06/16 19:17 Ordered Sodium Chloride 0.9% [Normal Saline] 50 ml IV Q6H SitaGLIPtin [Januvia] Med 06/07/16 09:00 Ordered 50 mg PO DAILY Sodium Chloride 0.9% [Normal Saline] 1,000 ml Med 06/06/16 17:30 Active IV ASDIRECTED Tamsulosin [Flomax] Med 06/07/16 09:00 Ordered 0.4 mg PO DAILY Temazepam [Restoril] Med 06/06/16 19:17 Ordered 15 mg PO BEDTIME PRN Vancomycin 1 gm Med 06/06/16 19:30 Active Vancomycin 500 mg Sodium Chloride 0.9% [Normal Saline] 500 ml IV Q24H Vancomycin Pharmacy to Dose [Pharmacy to Dose - Med 06/06/16 19:30 Ordered Vancomycin] 1 dose .XX ASDIRECTED Warfarin Pharmacy to Dose [Pharmacy to Dose - Warfarin] Med 06/06/16 19:30 Ordered 1 dose .XX ASDIRECTED Warfarin [Coumadin] Med 06/09/16 19:20 Ordered 2.5 mg PO WE Warfarin [Coumadin] Med 06/06/16 19:30 Ordered 5 mg PO SUMOTUTHFRSA atorvaSTATin Med 06/06/16 21:00 Ordered 10 mg PO BEDTIME Blood Culture x2 Reflex Set [OM.PC] Stat Oth 06/06/16 17:27 Ordered Precautions [COMM] Routine Oth 06/06/16 19:29 Ordered Transfuse PRBC [Transfuse Red Blood Cells] [COMM] Oth 06/06/16 18:50 Ordered Routine Resuscitation Status Routine Resus Stat 06/06/16 19:17 Ordered Medication Orders Acetaminophen (Tylenol) 650 mg PO Q4H PRN PRN Reason: Pain (Mild 1-3)/fever Acetaminophen/Hydrocodone Bitart ([place] 325-5 Mg) 1 tab PO Q4H PRN PRN Reason: Pain (moderate 4-6) Bisacodyl (Dulcolax) 5 mg PO DAILY PRN PRN Reason: Constipation Bumetanide (Bumex) 0.5 mg PO DAILY PRN PRN Reason: chf Dextrose/Water (Dextrose 50% In Water) 50 ml IVPUSH ASDIRECTED PRN PRN Reason: Hypoglycemia Digoxin (Lanoxin) 125 mcg PO DAILY KAREN Diltiazem HCl (Cardizem Cd) 240 mg PO DAILY KAREN Donepezil HCl (Aricept) 10 mg PO BEDTIME KAREN Finasteride (Proscar) 5 mg PO DAILY KAREN Gabapentin (Neurontin) 300 mg PO BEDTIME KAREN Gabapentin (Neurontin) 300 mg PO DAILY KAREN Hydromorphone HCl (Dilaudid) 0.25 mg IVPUSH Q2H PRN PRN Reason: Pain (severe 7-10) Sodium Chloride (Normal Saline) 1,000 mls @ 100 mls/hr IV ASDIRECTED KAREN Last Admin: 06/06/16 17:42 Dose: 100 mls/hr Piperacillin Sod/Tazobactam (Sod 3.375 gm/ Sodium Chloride) 100 mls @ 25 mls/ hr IV Q6H KAREN Levofloxacin/Dextrose 750 mg/ (Premix) 150 mls @ 100 mls/hr IV ONETIME ONE Stop: 06/06/16 20:26 Potassium Chloride 10 meq/ (Premix) 100 mls @ 100 mls/hr IV ASDIRECTED KAREN Promethazine HCl 12.5 mg/ (Sodium Chloride) 50.5 mls @ 100 mls/hr IV Q6H PRN PRN Reason: Nausea/Vomiting Levofloxacin/Dextrose 500 mg/ (Premix) 100 mls @ 100 mls/hr IV Q24H KAREN Vancomycin HCl 1 gm/Vancomycin HCl 500 mg/ Sodium Chloride 500 mls @ 125 mls/ hr IV Q24H KAREN Insulin Aspart (Novolog) 0 unit SUBCUT QIDACANDBED KAREN PRN Reason: Protocol Loperamide HCl (Imodium) 2 mg PO DAILY PRN PRN Reason: Diarrhea Lorazepam (Ativan) 0.5 mg IV Q6H PRN PRN Reason: Anxiety Magnesium Sulfate (Pharmacy To Dose - Magnesium Replacement) 1 dose .XX ASDIRECTED KAREN Metoprolol Tartrate (Lopressor) 25 mg PO DAILY PRN PRN Reason: Other Metoprolol Tartrate (Lopressor) 50 mg PO BID KAREN Non-Formulary Medication (Bumetanide [Bumetanide]) 2 oz PO DAILY KAREN Non-Formulary Medication (Diphenhyd/Lidocaine/Nystatin) 15 ml PO TID KAREN Non-Formulary Medication (Fesoterodine Fumarate [Toviaz]) 4 mg PO DAILY KAREN Non-Formulary Medication (Imatinib [Gleevec]) 600 mg PO DAILY KARNE Non-Formulary Medication (Insulin Glarg,Human.Rec.Analog) 10 units SUBCUT ASDIRECTED KAREN Non-Formulary Medication (Mag Hydrox/Al Hydrox/Simeth [Mag-Al Plus Xs]) 30 ml PO Q4H PRN PRN Reason: Indigestion Non-Formulary Medication (Meclizine) 25 mg PO TID PRN PRN Reason: Dizziness Non-Formulary Medication (Melatonin) 3 mg PO BEDTIME KAREN Non-Formulary Medication (Multivitamin [Multivitamins]) 1 each PO DAILY KAREN Non-Formulary Medication (Mupirocin Cream) 1 applic TOP BID KAREN Non-Formulary Medication (Nystatin/Triamcinolone Crm) 30 gm TOP BID PRN PRN Reason: Rash Non-Formulary Medication (Omeprazole) 20 mg PO DAILY KAREN Non-Formulary Medication (Atorvastatin) 10 mg PO BEDTIME KAREN Nystatin (Mycostatin) 5 ml PO QID PRN PRN Reason: Pain Ondansetron HCl (Zofran) 4 mg IV Q6H PRN PRN Reason: Nausea/Vomiting Polyethylene Glycol (Miralax) 17 gm PO DAILY PRN PRN Reason: Constipation Potassium Chloride (Klor-Con M20) 30 meq PO DAILY [facility] Potassium Chloride (Pharmacy To Dose - Potassium Replacement) 1 dose .XX ASDIRECTED [facility] Senna/Docusate Sodium (Senna Plus) 1 tab PO BID PRN PRN Reason: Constipation Senna/Docusate Sodium (Senna Plus) 2 tab PO DAILY PRN PRN Reason: Constipation Sitagliptin Phosphate (Januvia) 50 mg PO DAILY [facility] Tamsulosin HCl (Flomax) 0.4 mg PO DAILY [facility] Temazepam (Restoril) 15 mg PO BEDTIME PRN PRN Reason: Sleep Vancomycin HCl (Pharmacy To Dose - Vancomycin) 1 dose .XX ASDIRECTED [facility] Warfarin Sodium (Coumadin) 2.5 mg PO [place] Warfarin Sodium (Coumadin) 5 mg PO SUMOTUTHFRSA [facility] Warfarin Sodium (Pharmacy To Dose - Warfarin) 1 dose .XX ASDIRECTED [facility] Assessment/Plan Comment:: Assessment/Plan: Acute: AMS - Has underlying memory impairment - High Risk Polypharmacy - More confused than usual per family and staff at ER - Neuro check Q4 at least 4 times since he is on warfarin: high risk for brain bleed - Head CT scan: shows no acute abnormal findings Fever of Unknown Origin - Risk factors: 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 - CXR: no obvious infiltrate - Awaiting UA as possible etiology given his hx/o urinary retention/ incontinence - Must be aggressive since in ATB due to his low WBC and Immuno-suppressed state - IV Levaquin/Zosyn/Vancomycin all for pharmacy to dose Acute in Chronic Anemia (likely for underlying cancer) w/ Melagoblastic Component (MCV elevated) - Baseline Hgb is 9-10 - He needs transfusion given his co-morbid conditions - ED provider already ordered 2 units of PRBCs - Monitor Hgb level Hypokalemia - Likely for diuretic and inadequate intake - Pharmacy to replete and monitor Leukocythemia - Carries hx/o CCL/CML - Follows Dr. Haddad at [facility] - Continue Chemodrug - Monitor level Mild HF With Preserved EF 55%/Grade 3 Diastolic Dysfunction - Has some lung crackles and BNP is 664 - Continue heart failure home medications - AHA diet with 2 gram salt daily restrictions Status Post Fall - Could be multi-factorial - High Risk Polypharmacy and also DM - Monitor for Bleed since he is on blood thinner - PT/OT consult Elevated Troponin Level - On ASA, BB, CCB and Warfarin - Will monitor Influenza Screening Negative Chronic: Chronic Atrial Fibrillation, HR controlled on Warfarin HTN HLD Pulmonary HTN NORMA on CPAP GERD DM2 Urinary Incontinence ED Memory Impairment CLL/CML Peripheral Neuropathy Obesity Plan: Admit to Med-Surg with Tele Routine AM Labs Resume Home Meds ISS and Accu-check QID CPAP QHS INR daily UA stat PT/OT consult SW/CM for d/c planning DVT ppx: Warfarin Aspiration/Fall/ Precautions Code Status: 1 Additional orders as above
[2016-06-06] MEDS ORDERED: Aluminum Hydroxide/Magnesium Hydroxide/Simethicone Susp 30 ML Cup PO PRN (20:29)
[2016-06-06] MEDS ORDERED: Sodium Chloride 0.9% 250 ML ONE (20:57)
[2016-06-06] MEDS ORDERED: Magnesium Sulfate/Water 2 GM in Premix Bag 1 BAG IV ONE (21:00)
[2016-06-06] MEDS: Simvastatin 10 MG Tab PO SCH (21:15)
[2016-06-06] MEDS: Mupirocin Oint 22 GM Tube TOP SCH (22:15)
[2016-06-06] MEDS: Levofloxacin/Dextrose 5%-Water 500 MG in Premix Bag 1 BAG IV SCH ×2 (22:15→23:17)
[2016-06-06] MEDS: Vancomycin 1500 MG in Sodium Chloride 0.9% 500 ML IV SCH ×3 (22:16)
[2016-06-06] MEDS: Insulin Aspart 100 Units/ML 3 ML Pen SUBCUT SCH (22:16)
[2016-06-06] MEDS: Metoprolol Tartrate 50 MG Tab PO SCH (22:16)
[2016-06-06] MEDS: Potassium Chloride 20 MEQ Tab.ER PO SCH (22:16)
[2016-06-06] MEDS: Donepezil 10 MG Tab PO SCH (23:12)
[2016-06-06] MEDS: Gabapentin 300 MG Cap PO SCH (23:13)
[2016-06-07] MEDS ORDERED: Magnesium Sulfate/Water 50 ML ONE (00:42)
[2016-06-07] MEDS: Potassium Chloride 20 MEQ Tab.ER PO SCH (00:51)
[2016-06-07] MEDS: Acetaminophen/HYDROcodone 325-5 MG Tab PO PRN (03:03)
[2016-06-07] MEDS: Sodium Chloride 0.9% 1,000 ML IV SCH ×2 (05:40→15:29)
[2016-06-07] MEDS: Pantoprazole 40 MG Tab.CR PO SCH ×2 (05:40→06:53)
[2016-06-07] MEDS: Trospium 20 MG Tab PO SCH ×2 (05:41→15:22)
--- NOTE | 2016-06-07 07:15 | CR ---
Chest: Frontal view of the chest was obtained. Comparison: No previous study. Heart size at the upper limits of normal. Upper mediastinum is normal. Perihilar markings are mildly increased possibly due to bronchitis. Lungs otherwise are clear. No alveolar densities of pneumonia are seen. Bony structures are grossly intact. Impression: 1. Perihilar markings are slightly increased possibly representing mild bronchitis. Diagnostic code #3
[2016-06-07] MEDS ORDERED: Piperacillin/Tazobactam 4.5 GM in Sodium Chloride 0.9% 100 ML IV SCH (08:00)
[2016-06-07] MEDS: DIPHENHYDRAMINE PO SCH ×4 (08:38→20:14)
[2016-06-07] MEDS: NYSTATIN PO SCH ×4 (08:38→20:14)
[2016-06-07] MEDS: LIDOCAINE PO SCH ×4 (08:38→20:14)
[2016-06-07] MEDS: Multivitamins,Therapeutic Tab PO SCH (08:41)
[2016-06-07] MEDS: Gabapentin 300 MG Cap PO SCH ×2 (08:42→20:13)
[2016-06-07] MEDS: Bumetanide 1 MG Tab PO SCH (08:42)
[2016-06-07] MEDS: Potassium Chloride 10 MEQ Tab.ER PO SCH (08:42)
[2016-06-07] MEDS: Digoxin 125 MCG Tab PO SCH (08:42)
[2016-06-07] MEDS: Diltiazem 240 MG Cap.ER PO SCH (08:43)
[2016-06-07] MEDS: Metoprolol Tartrate 50 MG Tab PO SCH ×2 (08:43→20:12)
[2016-06-07] MEDS: Tamsulosin 0.4 MG Cap.ER PO SCH (08:43)
[2016-06-07] MEDS: Mupirocin Oint 22 GM Tube TOP SCH ×2 (08:44→23:10)
[2016-06-07] MEDS: Finasteride 5 MG Tab PO SCH (08:44)
--- NOTE | 2016-06-07 08:45 | PCM.PN ---
- General Info Date of Service: 06/07/16 Admission Dx/Problem (Free Text): Admission Diagnosis/Problem Admission Diagnosis/Problem Fever of unknown origin Functional Status: Reports: pain controlled, tolerating diet, ambulating, urinating, new symptoms (tired overnight) - Review of Systems General: Denies: fever, chills HEENT: Reports: no symptoms Pulmonary: Denies: shortness of breath Cardiovascular: Denies: no symptoms Gastrointestinal: Denies: Abdominal pain, Nausea, Vomiting Genitourinary: Reports: no symptoms Musculoskeletal: Reports: no symptoms Skin: Denies: no symptoms Neurological: Denies: confusion, difficulty walking, weakness, gait disturbance Psychiatric: Denies: depression, anxiety Systems Review Comment:: Patient did not sleep well. He has no acute issues. He looks good this am. He has no new complaints. Patient on his way out to walk down the kang. - Patient Data Vitals - most recent: Last Vital Signs Temp 36.9 C 06/07/16 08:07 Pulse 70 06/07/16 08:07 Resp 18 06/07/16 08:07 BP 118/49 L 06/07/16 08:07 Pulse Ox 94 L 06/07/16 08:07 Weight - most recent: 92.261 kg I&O - last 24 hours: Intake & Output 06/06/16 06/07/16 06/07/16 22:59 06:59 14:59 Intake Total 0 3147 Output Total 675 650 Balance -675 2497 Lab Results last 24 hrs: Laboratory Results - last 24 hr 06/06/16 06/07/16 06/07/16 Range/Units 21:02 05:54 05:54 WBC 43.29 H (4.23-9.07) K/mm3 RBC 3.19 L (4.63-6.08) M/mm3 Hgb 9.7 L (13.7-17.5) gm/L Hct 31.2 L (40.1-51.0) % MCV 97.8 H (79.0-92.2) fl MCH 30.4 (25.7-32.2) pg MCHC 31.1 L (32.2-35.5) g/dl RDW Std Deviation 74.7 H (35.1-43.9) fL Plt Count 128 L (163-337) K/mm3 MPV 9.1 L (9.4-12.3) fl Neut % (Auto) 12.8 L (34.0-67.9) % Lymph % (Auto) 82.8 H (21.8-53.1) % Gilmer % (Auto) 3.9 L (5.3-12.2) % Eos % (Auto) 0.1 L (0.8-7.0) Baso % (Auto) 0.1 (0.1-1.2) % Neut # 5.54 H (1.78-5.38) K/mm3 Lymph # 35.83 H (1.32-3.57) K/mm3 Gilmer # 1.68 H (0.30-0.82) K/mm3 Eos # 0.04 (0.04-0.54) K/mm3 Baso # 0.06 (0.01-0.08) K/mm3 Manual Slide Review Abnormal smear PT 15.6 H (8.0-13.0) SECONDS INR 1.40 Sodium (136-145) mEq/L Potassium (3.5-5.1) mEq/L Chloride (98-107) mEq/L Carbon Dioxide (21-32) mEq/L Anion Gap (5-15) BUN (7-18) mg/dL Creatinine (0.7-1.3) mg/dL Est Cr Clr Drug Dosing mL/min Estimated GFR (MDRD) (>60) mL/min BUN/Creatinine Ratio (14-18) Glucose (83-115) mg/dL POC Glucose 149 H (83-110) mg/dL Calcium (8.5-10.1) mg/dL Magnesium (1.8-2.4) mg/dl CK-MB (CK-2) (0-3.6) ng/ml Troponin I (0.00-0.056) ng/mL C-Reactive Protein (<1.0) mg/dL 06/07/16 06/07/16 06/07/16 Range/Units 05:54 05:54 05:54 WBC (4.23-9.07) K/mm3 RBC (4.63-6.08) M/mm3 Hgb (13.7-17.5) gm/L Hct (40.1-51.0) % MCV (79.0-92.2) fl MCH (25.7-32.2) pg MCHC (32.2-35.5) g/dl RDW Std Deviation (35.1-43.9) fL Plt Count (163-337) K/mm3 MPV (9.4-12.3) fl Neut % (Auto) (34.0-67.9) % Lymph % (Auto) (21.8-53.1) % Gilmer % (Auto) (5.3-12.2) % Eos % (Auto) (0.8-7.0) Baso % (Auto) (0.1-1.2) % Neut # (1.78-5.38) K/mm3 Lymph # (1.32-3.57) K/mm3 Gilmer # (0.30-0.82) K/mm3 Eos # (0.04-0.54) K/mm3 Baso # (0.01-0.08) K/mm3 Manual Slide Review PT (8.0-13.0) SECONDS INR Sodium 139 (136-145) mEq/L Potassium 3.3 L (3.5-5.1) mEq/L Chloride 101 (98-107) mEq/L Carbon Dioxide 30 (21-32) mEq/L Anion Gap 11.3 (5-15) BUN 12 (7-18) mg/dL Creatinine 1.1 (0.7-1.3) mg/dL Est Cr Clr Drug Dosing 53.56 mL/min Estimated GFR (MDRD) > 60 (>60) mL/min BUN/Creatinine Ratio 10.9 L (14-18) Glucose 166 H (83-115) mg/dL POC Glucose (83-110) mg/dL Calcium 7.5 L (8.5-10.1) mg/dL Magnesium 1.8 (1.8-2.4) mg/dl CK-MB (CK-2) 1.0 (0-3.6) ng/ml Troponin I 0.059 H* (0.00-0.056) ng/mL C-Reactive Protein 8.4 H* (<1.0) mg/dL 06/07/16 Range/Units 05:56 WBC (4.23-9.07) K/mm3 RBC (4.63-6.08) M/mm3 Hgb (13.7-17.5) gm/L Hct (40.1-51.0) % MCV (79.0-92.2) fl MCH (25.7-32.2) pg MCHC (32.2-35.5) g/dl RDW Std Deviation (35.1-43.9) fL Plt Count (163-337) K/mm3 MPV (9.4-12.3) fl Neut % (Auto) (34.0-67.9) % Lymph % (Auto) (21.8-53.1) % Gilmer % (Auto) (5.3-12.2) % Eos % (Auto) (0.8-7.0) Baso % (Auto) (0.1-1.2) % Neut # (1.78-5.38) K/mm3 Lymph # (1.32-3.57) K/mm3 Gilmer # (0.30-0.82) K/mm3 Eos # (0.04-0.54) K/mm3 Baso # (0.01-0.08) K/mm3 Manual Slide Review PT (8.0-13.0) SECONDS INR Sodium (136-145) mEq/L Potassium (3.5-5.1) mEq/L Chloride (98-107) mEq/L Carbon Dioxide (21-32) mEq/L Anion Gap (5-15) BUN (7-18) mg/dL Creatinine (0.7-1.3) mg/dL Est Cr Clr Drug Dosing mL/min Estimated GFR (MDRD) (>60) mL/min BUN/Creatinine Ratio (14-18) Glucose (83-115) mg/dL POC Glucose 152 H (83-110) mg/dL Calcium (8.5-10.1) mg/dL Magnesium (1.8-2.4) mg/dl CK-MB (CK-2) (0-3.6) ng/ml Troponin I (0.00-0.056) ng/mL C-Reactive Protein (<1.0) mg/dL Med Orders - Current: Current Medications Acetaminophen (Tylenol) 650 mg PO Q4H PRN PRN Reason: Pain (Mild 1-3)/fever Acetaminophen/Hydrocodone Bitart ([place] 325-5 Mg) 1 tab PO Q4H PRN PRN Reason: Pain (moderate 4-6) Last Admin: 06/07/16 03:03 Dose: 1 tab Al Hydroxide/Mg Hydroxide (Mag-Al Plus) 30 ml PO Q4H PRN PRN Reason: Indigestion Bisacodyl (Dulcolax) 5 mg PO DAILY PRN PRN Reason: Constipation Bumetanide (Bumex) 4 mg PO DAILY KAREN Bumetanide (Bumex) 0.5 mg PO DAILY PRN PRN Reason: chf Dextrose/Water (Dextrose 50% In Water) 50 ml IVPUSH ASDIRECTED PRN PRN Reason: Hypoglycemia Digoxin (Lanoxin) 125 mcg PO DAILY [facility] Diltiazem HCl (Dilacor Xr) 240 mg PO DAILY [facility] Donepezil HCl (Aricept) 10 mg PO BEDTIME [facility] Last Admin: 06/06/16 23:12 Dose: 10 mg Finasteride (Proscar) 5 mg PO DAILY [facility] Gabapentin (Neurontin) 300 mg PO BEDTIME [facility] Last Admin: 06/06/16 23:13 Dose: 300 mg Gabapentin (Neurontin) 300 mg PO DAILY [facility] Hydromorphone HCl (Dilaudid) 0.25 mg IVPUSH Q2H PRN PRN Reason: Pain (severe 7-10) Last Admin: 06/07/16 01:15 Dose: 0.25 mg Sodium Chloride (Normal Saline) 1,000 mls @ 100 mls/hr IV ASDIRECTED [facility] Last Admin: 06/07/16 05:40 Dose: 100 mls/hr Promethazine HCl 12.5 mg/ (Sodium Chloride) 50.5 mls @ 100 mls/hr IV Q6H PRN PRN Reason: Nausea/Vomiting Levofloxacin/Dextrose 500 mg/ (Premix) 100 mls @ 100 mls/hr IV Q24H [facility] Last Admin: 06/06/16 23:17 Dose: Not Given Vancomycin HCl 1 gm/Vancomycin HCl 500 mg/ Sodium Chloride 500 mls @ 333 mls/ hr IV Q24H [facility] Last Admin: 06/06/16 22:16 Dose: 333 mls/hr Piperacillin Sod/Tazobactam (Sod 4.5 gm/ Sodium Chloride) 100 mls @ 25 mls/hr IV Q8H [facility] Magnesium Sulfate 2 gm/ Premix 50 mls @ 25 mls/hr IV ONETIME ONE Stop: 06/07/16 13:59 Insulin Aspart (Novolog) 0 unit SUBCUT QIDACANDBED [facility] PRN Reason: Protocol Last Admin: 06/06/16 22:16 Dose: Not Given Loperamide HCl (Imodium) 2 mg PO DAILY PRN PRN Reason: Diarrhea Lorazepam (Ativan) 0.5 mg IV Q6H PRN PRN Reason: Anxiety Magnesium Sulfate (Pharmacy To Dose - Magnesium Replacement) 1 dose .XX ASDIRECTED [facility] Meclizine HCl (Antivert) 25 mg PO TID PRN PRN Reason: Dizziness Metoprolol Tartrate (Lopressor) 25 mg PO DAILY PRN PRN Reason: Other Metoprolol Tartrate (Lopressor) 50 mg PO BID [facility] Last Admin: 06/06/16 22:16 Dose: 50 mg Multivitamins (Thera) 1 each PO DAILY [facility] Mupirocin (Bactroban Oint) 0 gm TOP BID [facility] Last Admin: 06/06/16 22:15 Dose: Not Given Nystatin (Mycostatin) 5 ml PO QID PRN PRN Reason: Pain Nystatin/Triamcinolone Acetonide (Mycolog Crm) 0 gm TOP BID PRN PRN Reason: RASH Ondansetron HCl (Zofran) 4 mg IV Q6H PRN PRN Reason: Nausea/Vomiting Pantoprazole Sodium (Protonix) 40 mg PO DAILY@0700 [facility] Last Admin: 06/07/16 06:53 Dose: Not Given Diphenhyd/Lidocaine/ (Nystatin 15 Ml) 0 each PO TID [facility] Imatinib [Gleevec] (600 Mg) 0 each PO DAILY [facility] Melatonin 3 Mg 0 each PO BEDTIME [facility] Polyethylene Glycol (Miralax) 17 gm PO DAILY PRN PRN Reason: Constipation Potassium Chloride (Klor-Con 10) 30 meq PO DAILY [facility] Potassium Chloride (Pharmacy To Dose - Potassium Replacement) 1 dose .XX ASDIRECTED [facility] Senna/Docusate Sodium (Senna Plus) 2 tab PO DAILY PRN PRN Reason: Constipation Simvastatin (Zocor) 10 mg PO BEDTIME [facility] Last Admin: 06/06/16 21:15 Dose: 10 mg Sitagliptin Phosphate (Januvia) 50 mg PO DAILY [facility] Tamsulosin HCl (Flomax) 0.4 mg PO DAILY [facility] Temazepam (Restoril) 15 mg PO BEDTIME PRN PRN Reason: Sleep Trospium (Sanctura) 20 mg PO BIDAC [facility] Last Admin: 06/07/16 05:41 Dose: Not Given Vancomycin HCl (Pharmacy To Dose - Vancomycin) 1 dose .XX ASDIRECTED [facility] Warfarin Sodium (Pharmacy To Dose - Warfarin) 1 dose .XX ASDIRECTED [facility] Warfarin Sodium (Coumadin) 5 mg PO ONETIME@1800 ONE Stop: 06/07/16 18:01 Discontinued Medications Acetaminophen (Tylenol) 650 mg PO NOW ONE Stop: 06/06/16 17:31 Last Admin: 06/06/16 17:42 Dose: 650 mg Furosemide (Lasix) 40 mg IVPUSH NOW ONE Stop: 06/06/16 18:55 Last Admin: 06/06/16 19:22 Dose: 40 mg Piperacillin Sod/Tazobactam (Sod 3.375 gm/ Sodium Chloride) 100 mls @ 25 mls/ hr IV Q6H [facility] Last Admin: 06/06/16 23:11 Dose: 25 mls/hr Levofloxacin/Dextrose 750 mg/ (Premix) 150 mls @ 100 mls/hr IV ONETIME ONE Stop: 06/06/16 20:26 Last Admin: 06/06/16 19:29 Dose: 100 mls/hr Potassium Chloride 10 meq/ (Premix) 100 mls @ 100 mls/hr IV ASDIRECTED [facility] Vancomycin HCl 1 gm/Vancomycin HCl 500 mg/ Sodium Chloride 500 mls @ 125 mls/ hr IV Q24H [facility] Last Admin: 06/06/16 23:14 Dose: Not Given Magnesium Sulfate 2 gm/ Premix 50 mls @ 50 mls/hr IV ONETIME ONE Stop: 06/06/16 21:59 Last Admin: 06/07/16 00:51 Dose: 50 mls/hr Sodium Chloride (Normal Saline) Confirm Administered Dose 250 mls @ as directed .ROUTE .STK-MED ONE Stop: 06/06/16 20:58 Last Admin: 06/06/16 21:18 Dose: 100 ml Magnesium Sulfate (Magnesium Sulfate 2 Gm In Water 50 Ml) Confirm Administered Dose 50 mls @ as directed .ROUTE .STK-MED ONE Stop: 06/07/16 00:43 Last Admin: 06/07/16 00:51 Dose: Not Given Non-Formulary Medication (Insulin Glarg,Human.Rec.Analog) 10 units SUBCUT ASDIRECTED KAREN Potassium Chloride (Klor-Con M20) 20 meq PO Q3H KAREN Stop: 06/07/16 00:01 Last Admin: 06/07/16 00:51 Dose: 20 meq Senna/Docusate Sodium (Senna Plus) 1 tab PO BID PRN PRN Reason: Constipation - Exam General: alert, oriented, cooperative, no acute distress, other (Obese) HEENT: Pupils equal, Pupils reactive, EOMI, Mucous membr. moist/pink Neck: supple, trachea midline, no JVD, no thyromegaly, other (short and thick) Lungs: Normal respiratory effort Cardiovascular: irregular rhythm, other (irregular rate) Abdomen: bowel sounds present, soft, no tenderness, no distension (Male) Exam: Deferred Back Exam: normal inspection, decreased range of motion Extremities: no edema, normal pulses, no tenderness/swelling, no clubbing, no cyanosis, no calf tenderness Peripheral Pulses: 2+: dorsalis pedis (L), dorsalis pedis (R) Skin: warm, dry, intact Neurological: no new focal deficit, normal gait Psy/Mental Status: alert, normal affect, normal mood - Problem List Review Problem List Initiated/Reviewed/Updated: Yes - My Orders Last 24 Hours: My Active Orders 06/06/16 18:54 CULTURE URINE [] Stat 06/06/16 19:17 Cardiac Monitoring [RC] CONTINUOUS Height and Weight [RC] 04 Intake and Output [RC] 04,16 Oxygen Therapy [RC] PRN Up With Assistance [RC] ASDIRECTED Up ad Bianca [RC] ASDIRECTED VTE/DVT Education [RC] PER UNIT ROUTINE Vital Signs [RC] Q4H Acetaminophen [Tylenol] 650 mg PO Q4H PRN Acetaminophen/HYDROcodone [[place] 325-5 MG] 1 tab PO Q4H PRN Bisacodyl [Dulcolax] 5 mg PO DAILY PRN HYDROmorphone [Dilaudid] 0.25 mg IVPUSH Q2H PRN LORazepam [Ativan] 0.5 mg IV Q6H PRN Ondansetron [Zofran] 4 mg IV Q6H PRN Polyethylene Glycol 3350 [MiraLAX] 17 gm PO DAILY PRN Promethazine [Phenergan] 12.5 mg Sodium Chloride 0.9% [Normal Saline] 50 ml IV Q6H Temazepam [Restoril] 15 mg PO BEDTIME PRN Resuscitation Status Routine 06/06/16 19:19 Consult to Case Management [CONS] Routine Consult to Residence Life Director [CONS] Routine OT Evaluation and Treatment [CONS] Routine PT Evaluation and Treatment [CONS] Routine Respiratory Care Assess and Treatment [CONS] Routine 06/06/16 19:20 Bumetanide [Bumex] 0.5 mg PO DAILY PRN Docusate Sodium/Sennosides [Senna Plus] 2 tab PO DAILY PRN Loperamide [Imodium] 2 mg PO DAILY PRN Metoprolol Tartrate [Lopressor] 25 mg PO DAILY PRN Nystatin [Mycostatin] 5 ml PO QID PRN 06/06/16 19:25 Blood Glucose Check, Bedside [RC] QIDACANDBED Dextrose 50% in Water 50 ml IVPUSH ASDIRECTED PRN 06/06/16 19:27 Neurological Monitoring [RC] ASDIRECTED 06/06/16 19:29 Precautions [COMM] Routine 06/06/16 19:30 Levofloxacin/Dextrose 5%-Water [Levaquin in D5W 500 MG/100 ML] 500 mg Premix Bag 1 bag IV Q24H Magnesium Rep Pharmacy to Dose [Pharmacy to Dose - Magnesium Replacement] 1 dose .XX ASDIRECTED Potassium Rep Pharmacy to Dose [Pharmacy to Dose - Potassium Replacement] 1 dose .XX ASDIRECTED Vancomycin Pharmacy to Dose [Pharmacy to Dose - Vancomycin] 1 dose .XX ASDIRECTED Warfarin Pharmacy to Dose [Pharmacy to Dose - Warfarin] 1 dose .XX ASDIRECTED 06/06/16 20:29 Alum Hydrox/Mag Hydrox/Simeth [Mag-Al Plus] 30 ml PO Q4H PRN 06/06/16 20:30 Meclizine [Antivert] 25 mg PO TID PRN 06/06/16 20:45 Nystatin/Triamcinolone Crm [Mycolog Crm] 0 gm TOP BID PRN 06/06/16 21:00 Donepezil [Aricept] 10 mg PO BEDTIME Gabapentin [Neurontin] 300 mg PO BEDTIME Metoprolol Tartrate [Lopressor] 50 mg PO BID Mupirocin Oint [Bactroban Oint] 0 gm TOP BID Patient's Own Medication [Ptom] 0 each PO BEDTIME Patient's Own Medication [Ptom] 0 each PO TID Simvastatin [Zocor] 10 mg PO BEDTIME 06/06/16 22:00 Insulin Aspart [NovoLOG] See Protocol SUBCUT QIDACANDBED 06/06/16 Dinner 2 Gram Sodium Diet [DIET] Consistent Carbohydrate Diet [DIET] 06/07/16 06:00 Trospium [Sanctura] 20 mg PO BIDAC 06/07/16 07:00 Pantoprazole [Protonix] 40 mg PO DAILY@0700 06/07/16 09:00 Bumetanide [Bumex] 4 mg PO DAILY Digoxin [Lanoxin] 125 mcg PO DAILY Diltiazem [Dilacor XR] 240 mg PO DAILY Finasteride [Proscar] 5 mg PO DAILY Gabapentin [Neurontin] 300 mg PO DAILY Multivitamins,Therapeutic [Thera] 1 each PO DAILY Patient's Own Medication [Ptom] 0 each PO DAILY Potassium Chloride [Klor-Con 10] 30 meq PO DAILY SitaGLIPtin [Januvia] 50 mg PO DAILY Tamsulosin [Flomax] 0.4 mg PO DAILY 06/07/16 12:00 Magnesium Sulfate/Water [Magnesium Sulfate 2 GM in Water 50 ML] 2 gm Premix Bag 1 bag IV ONETIME 06/07/16 18:00 Warfarin [Coumadin] 5 mg PO ONETIME@1800 ONE 06/08/16 05:11 BASIC METABOLIC PANEL,BMP [CHEM] AM C-REACTIVE PROTEIN [CHEM] AM CBC WITH AUTO DIFF [HEME] AM INR,PT,PROTHROMBIN TIME [COAG] AM 06/09/16 05:11 BASIC METABOLIC PANEL,BMP [CHEM] AM C-REACTIVE PROTEIN [CHEM] AM CBC WITH AUTO DIFF [HEME] AM INR,PT,PROTHROMBIN TIME [COAG] AM 06/10/16 05:11 BASIC METABOLIC PANEL,BMP [CHEM] AM C-REACTIVE PROTEIN [CHEM] AM CBC WITH AUTO DIFF [HEME] AM INR,PT,PROTHROMBIN TIME [COAG] AM 06/11/16 05:11 BASIC METABOLIC PANEL,BMP [CHEM] AM C-REACTIVE PROTEIN [CHEM] AM CBC WITH AUTO DIFF [HEME] AM INR,PT,PROTHROMBIN TIME [COAG] AM - Plan Plan:: Assessment/Plan: Acute: S/p Fever of Unknown Origin - Risk factors: 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 - CXR: no obvious infiltrate - Must be aggressive since in ATB due to his low WBC and Immuno-suppressed state - Blood Culture and UA bot negative - Continue IV Levaquin/Zosyn/Vancomycin all for pharmacy to dose - CRP 7.5 ---> 8.4 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 Haddad at [facility] - Continue Chemodrug - Monitor level Mild HF With Preserved EF 55%/Grade 3 Diastolic Dysfunction - Has some lung crackles and BNP is 664 - Continue heart failure home medications - AHA diet with 2 gram salt daily restrictions Elevated Troponin Level likely from LH Straina and Demand Ischemia from A-fib - On ASA, BB, CCB and Warfarin - Troponin 0.118 ---> 0.059 - CKMB is normal (1) - Will monitor Subtherapeutic INR - INR at 1.4 - Continue home warfarin dose - Pharmacy to dose and monitor Resolved: Influenza Screening Negative S/p AMS. He is now at baseline - Has underlying memory impairment - High Risk Polypharmacy - More confused than usual per family and staff at [facility] - Neuro check Q4 at least 4 times since he is on warfarin: high risk for brain bleed - Head CT scan: shows no acute abnormal findings Status Post Fall - Could be multi-factorial - High Risk Polypharmacy and also DM - Monitor for Bleed since he is on blood thinner - PT/OT consult Chronic: Chronic Atrial Fibrillation, HR controlled on Warfarin HTN HLD Pulmonary HTN NORMA on CPAP GERD DM2 Urinary Incontinence ED Memory Impairment CLL/CML Peripheral Neuropathy Obesity Plan: Patient looks totally different this morning, he looks great clinically this am Continue current treatment Routine AM Labs Continue PT/OT SW/CM for d/c planning DVT ppx: Warfarin Aspiration/Fall/ Precautions Code Status: 1 Additional orders as above No clear source of infection but he looks clinically great, anticipate d/c in 1- 2 days
[2016-06-07] MEDS: IMATINIB PO SCH (08:50)
[2016-06-07] MEDS: Insulin Aspart 100 Units/ML 3 ML Pen SUBCUT SCH ×4 (08:57→23:11)
[2016-06-07] MEDS: Magnesium Sulfate/Water 2 GM in Premix Bag 1 BAG IV ONE ×2 (12:18→12:56)
[2016-06-07] MEDS: Acetaminophen 325 MG Tab PO PRN ×2 (15:21→21:29)
[2016-06-07] MEDS ORDERED: Warfarin 5 MG Tab PO ONE (18:00)
[2016-06-07] MEDS ORDERED: Metoprolol Tartrate 5 MG/5 ML SDV ONE (19:17)
[2016-06-07] MEDS: Levofloxacin/Dextrose 5%-Water 500 MG in Premix Bag 1 BAG IV SCH (20:11)
[2016-06-07] MEDS: Donepezil 10 MG Tab PO SCH (20:12)
[2016-06-07] MEDS: Simvastatin 10 MG Tab PO SCH (20:13)
[2016-06-07] MEDS: Metoprolol Tartrate 5 MG/5 ML SDV IVPUSH PRN (20:57)
[2016-06-07] MEDS: Vancomycin 1500 MG in Sodium Chloride 0.9% 500 ML IV SCH ×3 (21:29)
[2016-06-07] MEDS: LORazepam 2 MG/ML MDV IV PRN (22:50)
[2016-06-07] MEDS: Temazepam 15 MG Cap PO PRN (23:43)
[2016-06-08] MEDS: Acetaminophen/HYDROcodone 325-5 MG Tab PO PRN (02:21)
[2016-06-08] MEDS: Sodium Chloride 0.9% 1,000 ML IV SCH (02:32)
[2016-06-08] MEDS: Metoprolol Tartrate 5 MG/5 ML SDV IVPUSH PRN (03:04)
[2016-06-08] MEDS: Pantoprazole 40 MG Tab.CR PO SCH (06:45)
[2016-06-08] MEDS: Trospium 20 MG Tab PO SCH ×2 (06:45→17:13)
[2016-06-08] MEDS: Insulin Aspart 100 Units/ML 3 ML Pen SUBCUT SCH ×4 (06:53→21:46)
[2016-06-08] MEDS: Potassium Chloride 10 MEQ in Premix Bag 1 BAG IV SCH ×8 (08:11→17:13)
[2016-06-08] MEDS: Mupirocin Oint 22 GM Tube TOP SCH ×2 (08:15→20:11)
[2016-06-08] MEDS: Multivitamins,Therapeutic Tab PO SCH (08:15)
[2016-06-08] MEDS: Tamsulosin 0.4 MG Cap.ER PO SCH (08:15)
[2016-06-08] MEDS: Bumetanide 1 MG Tab PO SCH (08:16)
[2016-06-08] MEDS: Diltiazem 240 MG Cap.ER PO SCH (08:16)
[2016-06-08] MEDS: NYSTATIN PO SCH ×3 (08:17→20:11)
[2016-06-08] MEDS: LIDOCAINE PO SCH ×3 (08:17→20:11)
[2016-06-08] MEDS: DIPHENHYDRAMINE PO SCH ×3 (08:17→20:11)
[2016-06-08] MEDS: Potassium Chloride 10 MEQ Tab.ER PO SCH (08:17)
[2016-06-08] MEDS: IMATINIB PO SCH (08:18)
[2016-06-08] MEDS: Gabapentin 300 MG Cap PO SCH ×2 (08:18→20:10)
[2016-06-08] MEDS: Digoxin 125 MCG Tab PO SCH (08:19)
[2016-06-08] MEDS: Finasteride 5 MG Tab PO SCH (08:19)
[2016-06-08] MEDS: Metoprolol Tartrate 50 MG Tab PO SCH ×2 (08:21→20:10)
--- NOTE | 2016-06-08 10:08 | PCM.PN ---
- General Info Date of Service: 06/08/16 Admission Dx/Problem (Free Text): Admission Diagnosis/Problem Admission Diagnosis/Problem Fever of unknown origin Subjective Update: Follow Up Functional Status: Reports: pain controlled, tolerating diet, ambulating, urinating. Denies: new symptoms - Review of Systems General: Denies: Fever, Weakness, Fatigue, Malaise, Chills HEENT: Reports: no symptoms Pulmonary: Denies: shortness of breath Cardiovascular: Denies: Chest Pain Gastrointestinal: Denies: Abdominal pain, Nausea, Vomiting Genitourinary: Reports: no symptoms Musculoskeletal: Reports: no symptoms Skin: Reports: no symptoms Neurological: Denies: Dizziness, Seizure, Weakness Psychiatric: Denies: depression, anxiety, hallucinations Systems Review Comment:: No overnight or acute issues. He is doing well. His WBC is 37k down from 43K. His INR still Subtherapeutic at 1.52. His K is is at 2.5 and CRP is 5.5. He has no new complaints. - Patient Data Vitals - most recent: Last Vital Signs Temp 36.4 C 06/08/16 08:11 Pulse 76 06/08/16 08:21 Resp 20 06/08/16 08:11 BP 108/65 06/08/16 08:21 Pulse Ox 90 L 06/08/16 08:11 Weight - most recent: 94.665 kg I&O - last 24 hours: Intake & Output 06/07/16 06/08/16 06/08/16 22:59 06:59 14:59 Intake Total 1185 3450 Output Total 1550 1000 Balance -365 2450 Lab Results last 24 hrs: Laboratory Results - last 24 hr 06/07/16 06/07/16 06/07/16 Range/Units 13:12 16:10 22:35 WBC (4.23-9.07) K/mm3 RBC (4.63-6.08) M/mm3 Hgb (13.7-17.5) gm/L Hct (40.1-51.0) % MCV (79.0-92.2) fl MCH (25.7-32.2) pg MCHC (32.2-35.5) g/dl RDW Std Deviation (35.1-43.9) fL Plt Count (163-337) K/mm3 MPV (9.4-12.3) fl Neut % (Auto) (34.0-67.9) % Lymph % (Auto) (21.8-53.1) % Carlisle % (Auto) (5.3-12.2) % Eos % (Auto) (0.8-7.0) Baso % (Auto) (0.1-1.2) % Neut # (1.78-5.38) K/mm3 Lymph # (1.32-3.57) K/mm3 Carlisle # (0.30-0.82) K/mm3 Eos # (0.04-0.54) K/mm3 Baso # (0.01-0.08) K/mm3 Manual Slide Review PT (8.0-13.0) SECONDS INR Sodium (136-145) mEq/L Potassium (3.5-5.1) mEq/L Chloride (98-107) mEq/L Carbon Dioxide (21-32) mEq/L Anion Gap (5-15) BUN (7-18) mg/dL Creatinine (0.7-1.3) mg/dL Est Cr Clr Drug Dosing mL/min Estimated GFR (MDRD) (>60) mL/min BUN/Creatinine Ratio (14-18) Glucose (83-115) mg/dL POC Glucose 176 H 161 H 107 (83-110) mg/dL Calcium (8.5-10.1) mg/dL Magnesium (1.8-2.4) mg/dl Troponin I (0.00-0.056) ng/mL C-Reactive Protein (<1.0) mg/dL 06/08/16 06/08/16 06/08/16 Range/Units 04:30 04:30 04:30 WBC 37.83 H (4.23-9.07) K/mm3 RBC 3.12 L (4.63-6.08) M/mm3 Hgb 9.4 L (13.7-17.5) gm/L Hct 30.3 L (40.1-51.0) % MCV 97.1 H (79.0-92.2) fl MCH 30.1 (25.7-32.2) pg MCHC 31.0 L (32.2-35.5) g/dl RDW Std Deviation 72.8 H (35.1-43.9) fL Plt Count 112 L (163-337) K/mm3 MPV 9.4 (9.4-12.3) fl Neut % (Auto) 15.0 L (34.0-67.9) % Lymph % (Auto) 80.6 H (21.8-53.1) % Carlisle % (Auto) 3.9 L (5.3-12.2) % Eos % (Auto) 0.1 L (0.8-7.0) Baso % (Auto) 0.1 (0.1-1.2) % Neut # 5.66 H (1.78-5.38) K/mm3 Lymph # 30.48 H (1.32-3.57) K/mm3 Carlisle # 1.49 H (0.30-0.82) K/mm3 Eos # 0.05 (0.04-0.54) K/mm3 Baso # 0.03 (0.01-0.08) K/mm3 Manual Slide Review Abnormal smear PT 17.0 H (8.0-13.0) SECONDS INR 1.52 Sodium 138 (136-145) mEq/L Potassium 2.5 L (3.5-5.1) mEq/L Chloride 101 (98-107) mEq/L Carbon Dioxide 26 (21-32) mEq/L Anion Gap 13.5 (5-15) BUN 10 (7-18) mg/dL Creatinine 0.8 (0.7-1.3) mg/dL Est Cr Clr Drug Dosing 73.65 mL/min Estimated GFR (MDRD) > 60 (>60) mL/min BUN/Creatinine Ratio 12.5 L (14-18) Glucose 127 H (83-115) mg/dL POC Glucose (83-110) mg/dL Calcium 7.0 L (8.5-10.1) mg/dL Magnesium (1.8-2.4) mg/dl Troponin I (0.00-0.056) ng/mL C-Reactive Protein 5.5 H* (<1.0) mg/dL 06/08/16 06/08/16 06/08/16 Range/Units 04:30 04:30 06:43 WBC (4.23-9.07) K/mm3 RBC (4.63-6.08) M/mm3 Hgb (13.7-17.5) gm/L Hct (40.1-51.0) % MCV (79.0-92.2) fl MCH (25.7-32.2) pg MCHC (32.2-35.5) g/dl RDW Std Deviation (35.1-43.9) fL Plt Count (163-337) K/mm3 MPV (9.4-12.3) fl Neut % (Auto) (34.0-67.9) % Lymph % (Auto) (21.8-53.1) % Carlisle % (Auto) (5.3-12.2) % Eos % (Auto) (0.8-7.0) Baso % (Auto) (0.1-1.2) % Neut # (1.78-5.38) K/mm3 Lymph # (1.32-3.57) K/mm3 Carlisle # (0.30-0.82) K/mm3 Eos # (0.04-0.54) K/mm3 Baso # (0.01-0.08) K/mm3 Manual Slide Review PT (8.0-13.0) SECONDS INR Sodium (136-145) mEq/L Potassium (3.5-5.1) mEq/L Chloride (98-107) mEq/L Carbon Dioxide (21-32) mEq/L Anion Gap (5-15) BUN (7-18) mg/dL Creatinine (0.7-1.3) mg/dL Est Cr Clr Drug Dosing mL/min Estimated GFR (MDRD) (>60) mL/min BUN/Creatinine Ratio (14-18) Glucose (83-115) mg/dL POC Glucose 122 H (83-110) mg/dL Calcium (8.5-10.1) mg/dL Magnesium 1.9 (1.8-2.4) mg/dl Troponin I 0.071 H* (0.00-0.056) ng/mL C-Reactive Protein (<1.0) mg/dL Med Orders - Current: Current Medications Acetaminophen (Tylenol) 650 mg PO Q4H PRN PRN Reason: Pain (Mild 1-3)/fever Last Admin: 06/07/16 21:29 Dose: 650 mg Acetaminophen/Hydrocodone Bitart (Novelty 325-5 Mg) 1 tab PO Q4H PRN PRN Reason: Pain (moderate 4-6) Last Admin: 06/08/16 02:21 Dose: 1 tab Al Hydroxide/Mg Hydroxide (Mag-Al Plus) 30 ml PO Q4H PRN PRN Reason: Indigestion Bisacodyl (Dulcolax) 5 mg PO DAILY PRN PRN Reason: Constipation Bumetanide (Bumex) 4 mg PO DAILY [facility] Last Admin: 06/08/16 08:16 Dose: 4 mg Bumetanide (Bumex) 0.5 mg PO DAILY PRN PRN Reason: chf Dextrose/Water (Dextrose 50% In Water) 50 ml IVPUSH ASDIRECTED PRN PRN Reason: Hypoglycemia Digoxin (Lanoxin) 125 mcg PO DAILY [facility] Last Admin: 06/08/16 08:19 Dose: 125 mcg Diltiazem HCl (Dilacor Xr) 240 mg PO DAILY [facility] Last Admin: 06/08/16 08:16 Dose: 240 mg Donepezil HCl (Aricept) 10 mg PO BEDTIME [facility] Last Admin: 06/07/16 20:12 Dose: 10 mg Finasteride (Proscar) 5 mg PO DAILY [facility] Last Admin: 06/08/16 08:19 Dose: 5 mg Gabapentin (Neurontin) 300 mg PO BEDTIME [facility] Last Admin: 06/07/16 20:13 Dose: 300 mg Gabapentin (Neurontin) 300 mg PO DAILY [facility] Last Admin: 06/08/16 08:18 Dose: 300 mg Hydromorphone HCl (Dilaudid) 0.25 mg IVPUSH Q2H PRN PRN Reason: Pain (severe 7-10) Last Admin: 06/07/16 01:15 Dose: 0.25 mg Sodium Chloride (Normal Saline) 1,000 mls @ 100 mls/hr IV ASDIRECTED [facility] Last Admin: 06/08/16 02:32 Dose: 100 mls/hr Promethazine HCl 12.5 mg/ (Sodium Chloride) 50.5 mls @ 100 mls/hr IV Q6H PRN PRN Reason: Nausea/Vomiting Levofloxacin/Dextrose 500 mg/ (Premix) 100 mls @ 100 mls/hr IV Q24H [facility] Last Admin: 06/07/16 20:11 Dose: 100 mls/hr Vancomycin HCl 1 gm/Vancomycin HCl 500 mg/ Sodium Chloride 500 mls @ 333 mls/ hr IV Q24H [facility] Last Admin: 06/07/16 21:29 Dose: 333 mls/hr Potassium Chloride 10 meq/ (Premix) 100 mls @ 100 mls/hr IV Q1H [facility] Stop: 06/08/16 15:59 Last Admin: 06/08/16 09:34 Dose: 100 mls/hr Insulin Aspart (Novolog) 0 unit SUBCUT QIDACANDBED [facility] PRN Reason: Protocol Last Admin: 06/08/16 06:53 Dose: Not Given Loperamide HCl (Imodium) 2 mg PO DAILY PRN PRN Reason: Diarrhea Lorazepam (Ativan) 0.5 mg IV Q6H PRN PRN Reason: Anxiety Last Admin: 06/07/16 22:50 Dose: 0.5 mg Magnesium Sulfate (Pharmacy To Dose - Magnesium Replacement) 1 dose .XX ASDIRECTED [facility] Meclizine HCl (Antivert) 25 mg PO TID PRN PRN Reason: Dizziness Metoprolol Tartrate (Lopressor) 50 mg PO BID [facility] Last Admin: 06/08/16 08:21 Dose: 50 mg Metoprolol Tartrate (Lopressor) 5 mg IVPUSH Q4H PRN PRN Reason: Tachycardia Last Admin: 06/08/16 03:04 Dose: 5 mg Multivitamins (Thera) 1 each PO DAILY [facility] Last Admin: 06/08/16 08:15 Dose: 1 each Mupirocin (Bactroban Oint) 0 gm TOP BID [facility] Last Admin: 06/08/16 08:15 Dose: Not Given Nystatin (Mycostatin) 5 ml PO QID PRN PRN Reason: Pain Nystatin/Triamcinolone Acetonide (Mycolog Crm) 0 gm TOP BID PRN PRN Reason: RASH Ondansetron HCl (Zofran) 4 mg IV Q6H PRN PRN Reason: Nausea/Vomiting Pantoprazole Sodium (Protonix) 40 mg PO DAILY@0700 [facility] Last Admin: 06/08/16 06:45 Dose: 40 mg Diphenhyd/Lidocaine/ (Nystatin 15 Ml) 0 each PO TID [facility] Last Admin: 06/08/16 08:17 Dose: Not Given Imatinib [Gleevec] (600 Mg) 0 each PO DAILY [facility] Last Admin: 06/08/16 08:18 Dose: Not Given Melatonin 3 Mg 0 each PO BEDTIME [facility] Last Admin: 06/07/16 20:14 Dose: Not Given Polyethylene Glycol (Miralax) 17 gm PO DAILY PRN PRN Reason: Constipation Potassium Chloride (Klor-Con 10) 30 meq PO DAILY [facility] Last Admin: 06/08/16 08:17 Dose: 30 meq Potassium Chloride (Pharmacy To Dose - Potassium Replacement) 1 dose .XX ASDIRECTED [facility] Senna/Docusate Sodium (Senna Plus) 2 tab PO DAILY PRN PRN Reason: Constipation Simvastatin (Zocor) 10 mg PO BEDTIME [facility] Last Admin: 06/07/16 20:13 Dose: 10 mg Sitagliptin Phosphate (Januvia) 50 mg PO DAILY [facility] Last Admin: 06/08/16 08:16 Dose: 50 mg Tamsulosin HCl (Flomax) 0.4 mg PO DAILY [facility] Last Admin: 06/08/16 08:15 Dose: 0.4 mg Temazepam (Restoril) 15 mg PO BEDTIME PRN PRN Reason: Sleep Last Admin: 06/07/16 23:43 Dose: 15 mg Trospium (Sanctura) 20 mg PO BIDAC [facility] Last Admin: 06/08/16 06:45 Dose: 20 mg Vancomycin HCl (Pharmacy To Dose - Vancomycin) 1 dose .XX ASDIRECTED [facility] Warfarin Sodium (Pharmacy To Dose - Warfarin) 1 dose .XX ASDIRECTED [facility] Warfarin Sodium (Coumadin) 5 mg PO ONETIME@1800 ONE Stop: 06/08/16 18:01 Discontinued Medications Acetaminophen (Tylenol) 650 mg PO NOW ONE Stop: 06/06/16 17:31 Last Admin: 06/06/16 17:42 Dose: 650 mg Furosemide (Lasix) 40 mg IVPUSH NOW ONE Stop: 06/06/16 18:55 Last Admin: 06/06/16 19:22 Dose: 40 mg Piperacillin Sod/Tazobactam (Sod 3.375 gm/ Sodium Chloride) 100 mls @ 25 mls/ hr IV Q6H [facility] Last Admin: 06/06/16 23:11 Dose: 25 mls/hr Levofloxacin/Dextrose 750 mg/ (Premix) 150 mls @ 100 mls/hr IV ONETIME ONE Stop: 06/06/16 20:26 Last Admin: 06/06/16 19:29 Dose: 100 mls/hr Potassium Chloride 10 meq/ (Premix) 100 mls @ 100 mls/hr IV ASDIRECTED [facility] Vancomycin HCl 1 gm/Vancomycin HCl 500 mg/ Sodium Chloride 500 mls @ 125 mls/ hr IV Q24H [facility] Last Admin: 06/06/16 23:14 Dose: Not Given Magnesium Sulfate 2 gm/ Premix 50 mls @ 50 mls/hr IV ONETIME ONE Stop: 06/06/16 21:59 Last Admin: 06/07/16 00:51 Dose: 50 mls/hr Sodium Chloride (Normal Saline) Confirm Administered Dose 250 mls @ as directed .ROUTE .STK-MED ONE Stop: 06/06/16 20:58 Last Admin: 06/06/16 21:18 Dose: 100 ml Piperacillin Sod/Tazobactam (Sod 4.5 gm/ Sodium Chloride) 100 mls @ 25 mls/hr IV Q8H [facility] Last Admin: 06/07/16 08:40 Dose: 25 mls/hr Magnesium Sulfate (Magnesium Sulfate 2 Gm In Water 50 Ml) Confirm Administered Dose 50 mls @ as directed .ROUTE .STK-MED ONE Stop: 06/07/16 00:43 Last Admin: 06/07/16 00:51 Dose: Not Given Magnesium Sulfate 2 gm/ Premix 50 mls @ 25 mls/hr IV ONETIME ONE Stop: 06/07/16 13:59 Last Admin: 06/07/16 12:56 Dose: 25 mls/hr Metoprolol Tartrate (Lopressor) 25 mg PO DAILY PRN PRN Reason: Other Metoprolol Tartrate (Lopressor) Confirm Administered Dose 5 mg .ROUTE .STK-MED ONE Stop: 06/07/16 19:18 Last Admin: 06/07/16 20:10 Dose: Not Given Non-Formulary Medication (Insulin Glarg,Human.Rec.Analog) 10 units SUBCUT ASDIRECTED [facility] Potassium Chloride (Klor-Con M20) 20 meq PO Q3H [facility] Stop: 06/07/16 00:01 Last Admin: 06/07/16 00:51 Dose: 20 meq Senna/Docusate Sodium (Senna Plus) 1 tab PO BID PRN PRN Reason: Constipation Warfarin Sodium (Coumadin) 5 mg PO ONETIME@1800 ONE Stop: 06/07/16 18:01 Last Admin: 06/07/16 18:04 Dose: 5 mg - Exam General: alert, oriented, cooperative, no acute distress, other (Obese) HEENT: Pupils equal, Pupils reactive, EOMI, Mucous membr. moist/pink Neck: supple, trachea midline, no JVD, other (Short and thick) Lungs: Normal respiratory effort, Decreased breath sounds Cardiovascular: Irregular Rhythm, Other (irregular rate) Abdomen: bowel sounds present, soft, no tenderness, no distension (Male) Exam: Deferred Back Exam: normal inspection, decreased range of motion Extremities: no edema, normal pulses, no tenderness/swelling, no clubbing, no cyanosis, no calf tenderness Peripheral Pulses: 2+: dorsalis pedis (L), dorsalis pedis (R) Skin: warm, dry, intact Neurological: no new focal deficit Psy/Mental Status: alert, normal affect, normal mood - Problem List Review Problem List Initiated/Reviewed/Updated: Yes - My Orders Last 24 Hours: My Active Orders 06/07/16 22:21 Metoprolol Tartrate [Lopressor] 5 mg IVPUSH Q4H PRN 06/08/16 08:00 Potassium Chloride [KCl 10 MEQ in Water 100 ML] 10 meq Premix Bag 1 bag IV Q1H 06/08/16 18:00 Warfarin [Coumadin] 5 mg PO ONETIME@1800 ONE 06/09/16 05:11 BASIC METABOLIC PANEL,BMP [CHEM] AM C-REACTIVE PROTEIN [CHEM] AM CBC WITH AUTO DIFF [HEME] AM INR,PT,PROTHROMBIN TIME [COAG] AM 06/10/16 05:11 BASIC METABOLIC PANEL,BMP [CHEM] AM C-REACTIVE PROTEIN [CHEM] AM CBC WITH AUTO DIFF [HEME] AM INR,PT,PROTHROMBIN TIME [COAG] AM 06/11/16 05:11 BASIC METABOLIC PANEL,BMP [CHEM] AM C-REACTIVE PROTEIN [CHEM] AM CBC WITH AUTO DIFF [HEME] AM INR,PT,PROTHROMBIN TIME [COAG] AM - Plan Plan:: Assessment/Plan: 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 (MCV elevated) - Baseline Hgb is 9-10 - He needs transfusion given his co-morbid conditions - ED provider already ordered 2 units of PRBCs - Hgb Level today is 9.7 Mild HF With Preserved EF 55%/Grade 3 Diastolic Dysfunction - Has some lung crackles and BNP is 664 - Continue heart failure home medications - AHA diet with 2 gram salt daily restrictions Hypokalemia - K is 3 ---> 3.3 ---> 2.5 - Likely for diuretic and inadequate intake - Pharmacy to replete and monitor Subtherapeutic INR - INR at 1.4 ---> 1.5 - Continue home warfarin dose - Pharmacy to dose and monitor Resolved: Influenza Screening Negative S/p AMS. 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 - CXR: no obvious infiltrate - Must be aggressive since in ATB due to his low WBC and Immuno-suppressed state - Blood Culture and UA bot negative - Continue IV Levaquin/Zosyn/Vancomycin all for pharmacy to dose - CRP 7.5 ---> 8.4 --> 5.5 S/p Elevated Troponin Level likely from LH Strain and Demand Ischemia from A-fib - On ASA, BB, CCB and Warfarin - Troponin 0.118 ---> 0.059 - CKMB is normal (1) Chronic: Chronic Atrial Fibrillation, HR controlled on Warfarin HTN HLD Pulmonary HTN NORMA on CPAP GERD DM2 Urinary Incontinence ED Memory Impairment CLL/CML Peripheral Neuropathy Obesity Plan: He continues to do well No clear source of his fever D/c Vancomycin and Zosyn Continue current treatment Routine AM Labs Continue PT/OT SW/CM for d/c planning DVT ppx: Warfarin Aspiration/Fall/owning Precautions Additional orders as above Code Status: 1 Possible d/c in 1-2 days
[2016-06-08] MEDS ORDERED: Sodium Chloride 0.9% 10 ML Syringe FLUSH PRN (10:53)
[2016-06-08] MEDS ORDERED: Warfarin 5 MG Tab PO ONE (18:00)
[2016-06-08] MEDS: Levofloxacin/Dextrose 5%-Water 500 MG in Premix Bag 1 BAG IV SCH (18:46)
[2016-06-08] MEDS ORDERED: Potassium Chloride 20 MEQ Tab.ER PO ONE (19:00)
[2016-06-08] MEDS: Simvastatin 10 MG Tab PO SCH (20:10)
[2016-06-08] MEDS: Temazepam 15 MG Cap PO PRN (20:10)
[2016-06-08] MEDS: Donepezil 10 MG Tab PO SCH (20:10)
[2016-06-08] MEDS: Acetaminophen 325 MG Tab PO PRN (20:11)
[2016-06-08] MEDS: Vancomycin 1500 MG in Sodium Chloride 0.9% 500 ML IV SCH ×3 (21:46)
[2016-06-08] MEDS: LORazepam 2 MG/ML MDV IV PRN (23:24)
[2016-06-09] MEDS: Pantoprazole 40 MG Tab.CR PO SCH (06:26)
[2016-06-09] MEDS: Trospium 20 MG Tab PO SCH ×2 (06:27→15:25)
[2016-06-09] MEDS: Insulin Aspart 100 Units/ML 3 ML Pen SUBCUT SCH ×4 (06:31→21:39)
[2016-06-09] MEDS: LORazepam 2 MG/ML MDV IV PRN ×2 (08:15→22:57)
[2016-06-09] MEDS: Mupirocin Oint 22 GM Tube TOP SCH ×2 (08:24→21:33)
[2016-06-09] MEDS: Bumetanide 1 MG Tab PO SCH (08:26)
[2016-06-09] MEDS: Diltiazem 240 MG Cap.ER PO SCH (08:27)
[2016-06-09] MEDS: Multivitamins,Therapeutic Tab PO SCH (08:27)
[2016-06-09] MEDS: Finasteride 5 MG Tab PO SCH (08:29)
[2016-06-09] MEDS: Gabapentin 300 MG Cap PO SCH ×2 (08:29→21:36)
[2016-06-09] MEDS: Metoprolol Tartrate 50 MG Tab PO SCH ×2 (08:29→21:35)
[2016-06-09] MEDS: Tamsulosin 0.4 MG Cap.ER PO SCH (08:33)
[2016-06-09] MEDS ORDERED: Albuterol 0.083% 2.5 MG/3 ML Neb Soln ONE (08:33)
[2016-06-09] MEDS: Digoxin 125 MCG Tab PO SCH (08:33)
[2016-06-09] MEDS: Potassium Chloride 10 MEQ Tab.ER PO SCH (08:34)
[2016-06-09] MEDS: IMATINIB PO SCH (08:35)
[2016-06-09] MEDS: LIDOCAINE PO SCH ×3 (09:57→21:37)
[2016-06-09] MEDS: DIPHENHYDRAMINE PO SCH ×3 (09:57→21:37)
[2016-06-09] MEDS: NYSTATIN PO SCH ×3 (09:57→21:37)
--- NOTE | 2016-06-09 10:04 | CR ---
Chest: Frontal view of the chest is obtained utilizing portable technique. Comparison: Previous chest x-ray of 06/06/16. Diffuse increasing density within both sides of the chest. Heart is enlarged. Central lung markings are increased. Bony structures are osteopenic. Degenerative endplate spurring is noted within the spine. Impression: 1. Diffuse increasing densities within both sides of the chest. Differential includes bilateral areas of pneumonia as well as asymmetric areas of pulmonary edema. 2. Central lung markings are increased which remains stable. Diagnostic code #3
[2016-06-09] MEDS ORDERED: Bumetanide 1 MG/4 ML MDV IVPUSH ONE (10:56)
--- NOTE | 2016-06-09 10:57 | PCM.PN ---
- General Info Date of Service: 06/09/16 Admission Dx/Problem (Free Text): Admission Diagnosis/Problem Admission Diagnosis/Problem Fever of unknown origin Subjective Update: Follow Up Functional Status: Reports: pain controlled, tolerating diet, ambulating, urinating. Denies: new symptoms - Review of Systems General: Denies: Fever, Weakness, Fatigue, Malaise, Chills HEENT: Reports: no symptoms Pulmonary: Reports: shortness of breath, cough Cardiovascular: Denies: Chest Pain Gastrointestinal: Denies: Abdominal pain, Nausea, Vomiting Genitourinary: Reports: no symptoms Musculoskeletal: Reports: no symptoms Skin: Denies: cyanosis, mottled, pallor Neurological: Denies: Confusion, Dizziness Psychiatric: Denies: depression, anxiety Systems Review Comment:: No overnight issues. However this am he went into acute respiratory distress from poor oral control. CXR shows worse than previous study. He is currently on 6L NC as his sats went down to low 70s. He is otherwise stable. - Patient Data Vitals - most recent: Last Vital Signs Temp 37.2 C 06/09/16 07:54 Pulse 82 06/09/16 08:33 Resp 20 06/09/16 07:54 BP 139/60 06/09/16 08:29 Pulse Ox 79 L 06/09/16 07:54 Weight - most recent: 94.347 kg I&O - last 24 hours: Intake & Output 06/08/16 06/09/16 06/09/16 22:59 06:59 14:59 Intake Total 2610 800 0 Output Total 1400 875 Balance 1210 -75 0 Lab Results last 24 hrs: Laboratory Results - last 24 hr 06/08/16 06/08/16 06/09/16 Range/Units 17:12 20:14 04:50 WBC 42.96 H (4.23-9.07) K/mm3 RBC 3.28 L (4.63-6.08) M/mm3 Hgb 10.1 L (13.7-17.5) gm/L Hct 31.1 L (40.1-51.0) % MCV 94.8 H (79.0-92.2) fl MCH 30.8 (25.7-32.2) pg MCHC 32.5 (32.2-35.5) g/dl RDW Std Deviation 72.4 H (35.1-43.9) fL Plt Count 113 L (163-337) K/mm3 MPV 9.6 (9.4-12.3) fl Neut % (Auto) Cancelled Lymph % (Auto) Cancelled Curry % (Auto) Cancelled Eos % (Auto) Cancelled Baso % (Auto) Cancelled Neut # Cancelled Lymph # Cancelled Curry # Cancelled Eos # Cancelled Baso # Cancelled Neutrophils % (Manual) 9 L (40-60) % Band Neutrophils % 0 (0-10) % Lymphocytes % (Manual) 85 H (20-40) % Monocytes % (Manual) 0 L (2-10) % Eosinophils % (Manual) 0 L (0.8-7.0) % Basophils % (Manual) 0 L (0.2-1.2) Blast Cells % 3 Differential Comment See note Manual Slide Review Cancelled Platelet Estimate See note Polychromasia 1+ slight Anisocytosis 1+ slight RBC Morph Comment Not Reportable PT (8.0-13.0) SECONDS INR Sodium (136-145) mEq/L Potassium (3.5-5.1) mEq/L Chloride (98-107) mEq/L Carbon Dioxide (21-32) mEq/L Anion Gap (5-15) BUN (7-18) mg/dL Creatinine (0.7-1.3) mg/dL Est Cr Clr Drug Dosing mL/min Estimated GFR (MDRD) (>60) mL/min BUN/Creatinine Ratio (14-18) Glucose (83-115) mg/dL POC Glucose 125 H 170 H (83-110) mg/dL Calcium (8.5-10.1) mg/dL C-Reactive Protein (<1.0) mg/dL 06/09/16 06/09/16 06/09/16 Range/Units 04:50 04:50 06:26 WBC (4.23-9.07) K/mm3 RBC (4.63-6.08) M/mm3 Hgb (13.7-17.5) gm/L Hct (40.1-51.0) % MCV (79.0-92.2) fl MCH (25.7-32.2) pg MCHC (32.2-35.5) g/dl RDW Std Deviation (35.1-43.9) fL Plt Count (163-337) K/mm3 MPV (9.4-12.3) fl Neut % (Auto) Lymph % (Auto) Curry % (Auto) Eos % (Auto) Baso % (Auto) Neut # Lymph # Curry # Eos # Baso # Neutrophils % (Manual) (40-60) % Band Neutrophils % (0-10) % Lymphocytes % (Manual) (20-40) % Monocytes % (Manual) (2-10) % Eosinophils % (Manual) (0.8-7.0) % Basophils % (Manual) (0.2-1.2) Blast Cells % Differential Comment Manual Slide Review Platelet Estimate Polychromasia Anisocytosis RBC Morph Comment PT 17.1 H (8.0-13.0) SECONDS INR 1.53 Sodium 137 (136-145) mEq/L Potassium 3.3 L (3.5-5.1) mEq/L Chloride 101 (98-107) mEq/L Carbon Dioxide 27 (21-32) mEq/L Anion Gap 12.3 (5-15) BUN 9 (7-18) mg/dL Creatinine 1.0 (0.7-1.3) mg/dL Est Cr Clr Drug Dosing 58.92 mL/min Estimated GFR (MDRD) > 60 (>60) mL/min BUN/Creatinine Ratio 9.0 L (14-18) Glucose 123 H (83-115) mg/dL POC Glucose 136 H (83-110) mg/dL Calcium 7.2 L (8.5-10.1) mg/dL C-Reactive Protein 6.9 H* (<1.0) mg/dL Med Orders - Current: Current Medications Acetaminophen (Tylenol) 650 mg PO Q4H PRN PRN Reason: Pain (Mild 1-3)/fever Last Admin: 06/08/16 20:11 Dose: 650 mg Acetaminophen/Hydrocodone Bitart ([place] 325-5 Mg) 1 tab PO Q4H PRN PRN Reason: Pain (moderate 4-6) Last Admin: 06/08/16 02:21 Dose: 1 tab Al Hydroxide/Mg Hydroxide (Mag-Al Plus) 30 ml PO Q4H PRN PRN Reason: Indigestion Bisacodyl (Dulcolax) 5 mg PO DAILY PRN PRN Reason: Constipation Bumetanide (Bumex) 4 mg PO DAILY [facility] Last Admin: 06/09/16 08:26 Dose: 4 mg Bumetanide (Bumex) 0.5 mg PO DAILY PRN PRN Reason: chf Bumetanide (Bumex) 1 mg IVPUSH ONETIME ONE Stop: 06/09/16 10:57 Dextrose/Water (Dextrose 50% In Water) 50 ml IVPUSH ASDIRECTED PRN PRN Reason: Hypoglycemia Digoxin (Lanoxin) 125 mcg PO DAILY [facility] Last Admin: 06/09/16 08:33 Dose: 125 mcg Diltiazem HCl (Dilacor Xr) 240 mg PO DAILY [facility] Last Admin: 06/09/16 08:27 Dose: 240 mg Donepezil HCl (Aricept) 10 mg PO BEDTIME [facility] Last Admin: 06/08/16 20:10 Dose: 10 mg Finasteride (Proscar) 5 mg PO DAILY [facility] Last Admin: 06/09/16 08:29 Dose: 5 mg Gabapentin (Neurontin) 300 mg PO BEDTIME [facility] Last Admin: 06/08/16 20:10 Dose: 300 mg Gabapentin (Neurontin) 300 mg PO DAILY [facility] Last Admin: 06/09/16 08:29 Dose: 300 mg Hydromorphone HCl (Dilaudid) 0.25 mg IVPUSH Q2H PRN PRN Reason: Pain (severe 7-10) Last Admin: 06/07/16 01:15 Dose: 0.25 mg Sodium Chloride (Normal Saline) 1,000 mls @ 100 mls/hr IV ASDIRECTED [facility] Last Admin: 06/08/16 02:32 Dose: 100 mls/hr Promethazine HCl 12.5 mg/ (Sodium Chloride) 50.5 mls @ 100 mls/hr IV Q6H PRN PRN Reason: Nausea/Vomiting Levofloxacin/Dextrose 500 mg/ (Premix) 100 mls @ 100 mls/hr IV Q24H [facility] Last Admin: 06/08/16 18:46 Dose: 100 mls/hr Vancomycin HCl 1 gm/Vancomycin HCl 500 mg/ Sodium Chloride 500 mls @ 333 mls/ hr IV Q24H [facility] Last Admin: 06/08/16 21:46 Dose: 333 mls/hr Insulin Aspart (Novolog) 0 unit SUBCUT QIDACANDBED [facility] PRN Reason: Protocol Last Admin: 06/09/16 06:31 Dose: Not Given Loperamide HCl (Imodium) 2 mg PO DAILY PRN PRN Reason: Diarrhea Lorazepam (Ativan) 0.5 mg IV Q6H PRN PRN Reason: Anxiety Last Admin: 06/09/16 08:15 Dose: 0.5 mg Magnesium Sulfate (Pharmacy To Dose - Magnesium Replacement) 1 dose .XX ASDIRECTED [facility] Meclizine HCl (Antivert) 25 mg PO TID PRN PRN Reason: Dizziness Metoprolol Tartrate (Lopressor) 50 mg PO BID [facility] Last Admin: 06/09/16 08:29 Dose: 50 mg Metoprolol Tartrate (Lopressor) 5 mg IVPUSH Q4H PRN PRN Reason: Tachycardia Last Admin: 06/08/16 03:04 Dose: 5 mg Multivitamins (Thera) 1 each PO DAILY [facility] Last Admin: 06/09/16 08:27 Dose: 1 each Mupirocin (Bactroban Oint) 0 gm TOP BID [facility] Last Admin: 06/09/16 08:24 Dose: Not Given Nystatin (Mycostatin) 5 ml PO QID PRN PRN Reason: Pain Nystatin/Triamcinolone Acetonide (Mycolog Crm) 0 gm TOP BID PRN PRN Reason: RASH Ondansetron HCl (Zofran) 4 mg IV Q6H PRN PRN Reason: Nausea/Vomiting Pantoprazole Sodium (Protonix) 40 mg PO DAILY@0700 [facility] Last Admin: 06/09/16 06:26 Dose: 40 mg Diphenhyd/Lidocaine/ (Nystatin 15 Ml) 0 each PO TID [facility] Last Admin: 06/09/16 09:57 Dose: Not Given Imatinib [Gleevec] (600 Mg) 0 each PO DAILY [facility] Last Admin: 06/09/16 08:35 Dose: 3 each Melatonin 3 Mg 0 each PO BEDTIME [facility] Last Admin: 06/08/16 20:12 Dose: Not Given Polyethylene Glycol (Miralax) 17 gm PO DAILY PRN PRN Reason: Constipation Potassium Chloride (Klor-Con 10) 30 meq PO DAILY [facility] Last Admin: 06/09/16 08:34 Dose: 30 meq Potassium Chloride (Pharmacy To Dose - Potassium Replacement) 1 dose .XX ASDIRECTED [facility] Potassium Chloride (Klor-Con M20) 20 meq PO Q3H [facility] Stop: 06/09/16 15:01 Senna/Docusate Sodium (Senna Plus) 2 tab PO DAILY PRN PRN Reason: Constipation Simvastatin (Zocor) 10 mg PO BEDTIME [facility] Last Admin: 06/08/16 20:10 Dose: 10 mg Sitagliptin Phosphate (Januvia) 50 mg PO DAILY [facility] Last Admin: 06/09/16 08:27 Dose: 50 mg Sodium Chloride (Saline Flush) 10 ml FLUSH ASDIRECTED PRN PRN Reason: Keep Vein Open Tamsulosin HCl (Flomax) 0.4 mg PO DAILY [facility] Last Admin: 06/09/16 08:33 Dose: 0.4 mg Temazepam (Restoril) 15 mg PO BEDTIME PRN PRN Reason: Sleep Last Admin: 06/08/16 20:10 Dose: 15 mg Trospium (Sanctura) 20 mg PO BIDAC [facility] Last Admin: 06/09/16 06:27 Dose: 20 mg Vancomycin HCl (Pharmacy To Dose - Vancomycin) 1 dose .XX ASDIRECTED [facility] Warfarin Sodium (Pharmacy To Dose - Warfarin) 1 dose .XX ASDIRECTED [facility] Warfarin Sodium (Coumadin) 5 mg PO ONETIME@1800 ONE Stop: 06/09/16 18:01 Discontinued Medications Acetaminophen (Tylenol) 650 mg PO NOW ONE Stop: 06/06/16 17:31 Last Admin: 06/06/16 17:42 Dose: 650 mg Albuterol (Proventil Neb Soln) Confirm Administered Dose 2.5 mg .ROUTE .STK-MED ONE Stop: 06/09/16 08:34 Last Admin: 06/09/16 08:44 Dose: 2.5 mg Furosemide (Lasix) 40 mg IVPUSH NOW ONE Stop: 06/06/16 18:55 Last Admin: 06/06/16 19:22 Dose: 40 mg Piperacillin Sod/Tazobactam (Sod 3.375 gm/ Sodium Chloride) 100 mls @ 25 mls/ hr IV Q6H [facility] Last Admin: 06/06/16 23:11 Dose: 25 mls/hr Levofloxacin/Dextrose 750 mg/ (Premix) 150 mls @ 100 mls/hr IV ONETIME ONE Stop: 06/06/16 20:26 Last Admin: 06/06/16 19:29 Dose: 100 mls/hr Potassium Chloride 10 meq/ (Premix) 100 mls @ 100 mls/hr IV ASDIRECTED [facility] Vancomycin HCl 1 gm/Vancomycin HCl 500 mg/ Sodium Chloride 500 mls @ 125 mls/ hr IV Q24H [facility] Last Admin: 06/06/16 23:14 Dose: Not Given Magnesium Sulfate 2 gm/ Premix 50 mls @ 50 mls/hr IV ONETIME ONE Stop: 06/06/16 21:59 Last Admin: 06/07/16 00:51 Dose: 50 mls/hr Sodium Chloride (Normal Saline) Confirm Administered Dose 250 mls @ as directed .ROUTE .STK-MED ONE Stop: 06/06/16 20:58 Last Admin: 06/06/16 21:18 Dose: 100 ml Piperacillin Sod/Tazobactam (Sod 4.5 gm/ Sodium Chloride) 100 mls @ 25 mls/hr IV Q8H [facility] Last Admin: 06/07/16 08:40 Dose: 25 mls/hr Magnesium Sulfate (Magnesium Sulfate 2 Gm In Water 50 Ml) Confirm Administered Dose 50 mls @ as directed .ROUTE .STK-MED ONE Stop: 06/07/16 00:43 Last Admin: 06/07/16 00:51 Dose: Not Given Magnesium Sulfate 2 gm/ Premix 50 mls @ 25 mls/hr IV ONETIME ONE Stop: 06/07/16 13:59 Last Admin: 06/07/16 12:56 Dose: 25 mls/hr Potassium Chloride 10 meq/ (Premix) 100 mls @ 100 mls/hr IV Q1H [facility] Stop: 06/08/16 15:59 Last Admin: 06/08/16 17:13 Dose: 100 mls/hr Metoprolol Tartrate (Lopressor) 25 mg PO DAILY PRN PRN Reason: Other Metoprolol Tartrate (Lopressor) Confirm Administered Dose 5 mg .ROUTE .STK-MED ONE Stop: 06/07/16 19:18 Last Admin: 06/07/16 20:10 Dose: Not Given Non-Formulary Medication (Insulin Glarg,Human.Rec.Analog) 10 units SUBCUT ASDIRECTED [facility] Potassium Chloride (Klor-Con M20) 20 meq PO Q3H [facility] Stop: 06/07/16 00:01 Last Admin: 06/07/16 00:51 Dose: 20 meq Potassium Chloride (Klor-Con M20) 60 meq PO ONETIME ONE Stop: 06/08/16 19:01 Last Admin: 06/08/16 20:09 Dose: 60 meq Senna/Docusate Sodium (Senna Plus) 1 tab PO BID PRN PRN Reason: Constipation Warfarin Sodium (Coumadin) 5 mg PO ONETIME@1800 ONE Stop: 06/07/16 18:01 Last Admin: 06/07/16 18:04 Dose: 5 mg Warfarin Sodium (Coumadin) 5 mg PO ONETIME@1800 ONE Stop: 06/08/16 18:01 Last Admin: 06/08/16 17:13 Dose: 5 mg - Exam Quality Assessment: supplemental oxygen General: alert, cooperative, mild distress, other (Obese) HEENT: Pupils equal, Pupils reactive, EOMI, Mucous membr. moist/pink Neck: supple, trachea midline, no JVD, no thyromegaly, other (short and thick) Lungs: Normal respiratory effort, Decreased breath sounds, Crackles Cardiovascular: Irregular Rhythm, Other (irregular rate) Abdomen: bowel sounds present, soft, no tenderness, no distension, other (Obese) (Male) Exam: Deferred Back Exam: normal inspection, decreased range of motion Extremities: no edema, normal pulses, no tenderness/swelling, no clubbing, no cyanosis, no calf tenderness Peripheral Pulses: 2+: dorsalis pedis (L), dorsalis pedis (R) Skin: warm, dry, intact Neurological: no new focal deficit Psy/Mental Status: alert, normal affect, normal mood - Problem List Review Problem List Initiated/Reviewed/Updated: Yes - My Orders Last 24 Hours: My Active Orders 06/08/16 10:53 Sodium Chloride 0.9% [Saline Flush] 10 ml FLUSH ASDIRECTED PRN Saline Lock Insert [OM.PC] Routine 06/09/16 10:56 Bumetanide [Bumex] 1 mg IVPUSH ONETIME ONE 06/09/16 12:00 Potassium Chloride [Klor-Con M20] 20 meq PO Q3H 06/09/16 18:00 Warfarin [Coumadin] 5 mg PO ONETIME@1800 ONE 06/10/16 05:11 BASIC METABOLIC PANEL,BMP [CHEM] AM C-REACTIVE PROTEIN [CHEM] AM CBC WITH AUTO DIFF [HEME] AM INR,PT,PROTHROMBIN TIME [COAG] AM 06/11/16 05:11 BASIC METABOLIC PANEL,BMP [CHEM] AM C-REACTIVE PROTEIN [CHEM] AM CBC WITH AUTO DIFF [HEME] AM INR,PT,PROTHROMBIN TIME [COAG] AM - Plan Plan:: Assessment/Plan: Acute: Respiratory Distress - 2/2 poor oral control - CONTROL PANEL TESTER to eval - NPO for now - CXR shows worse than previous study 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 Haddad at [facility] - Continue Chemodrug Hypokalemia - K is 3 ---> 3.3 - Likely for diuretic and inadequate intake - Pharmacy to replete and monitor Subtherapeutic INR - INR at 1.4 ---> 1.5 - Continue home warfarin dose - Lovenox SubQ to augment - Pharmacy to dose and monitor High Risk Aspiration - CONTROL PANEL TESTER eval pending Resolved: Influenza Screening Negative S/p AMS. 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 - CXR: no obvious infiltrate - Must be aggressive since in ATB due to his low WBC and Immuno-suppressed state - Blood Culture and UA bot negative - Continue IV Levaquin/Zosyn/Vancomycin all for pharmacy to dose - CRP 7.5 ---> 8.4 --> 5.5 S/p Elevated Troponin Level likely from LH Strain and Demand Ischemia from A-fib - On ASA, BB, CCB and Warfarin - Troponin 0.118 ---> 0.059 - CKMB is normal (1) 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 (MCV elevated) - Baseline Hgb is 9-10 - He needs transfusion given his co-morbid conditions - ED provider already ordered 2 units of PRBCs - Hgb Level today is 10.1 S/p Mild HF With Preserved EF 55%/Grade 3 Diastolic Dysfunction - Has some lung crackles and BNP is 664 - Continue heart failure home medications - AHA diet with 2 gram salt daily restrictions Chronic: Chronic Atrial Fibrillation, HR controlled on Warfarin HTN HLD Pulmonary HTN NORMA on CPAP GERD DM2 Urinary Incontinence ED Memory Impairment CLL/CML Peripheral Neuropathy Obesity Plan: He is stable Will continue Vancomycin and Zosyn Continue current treatment Routine AM Labs Continue PT/OT SW/CM for d/c planning DVT ppx: Warfarin Aspiration/Fall/ing Precautions Additional orders as above Code Status: 1 LOS anticipate > 96hrs, patient trouble with swallowing and he may have possible aspirated
[2016-06-09] MEDS ORDERED: HYDROmorphone 0.5 MG/0.5 ML Syringe IVPUSH PRN (10:58)
[2016-06-09] MEDS ORDERED: Potassium Chloride 20 MEQ Tab.ER PO SCH (12:00)
[2016-06-09] MEDS: Potassium Chloride 10 MEQ in Premix Bag 1 BAG IV SCH ×4 (15:22→18:44)
[2016-06-09] MEDS: Acetaminophen 325 MG Tab PO PRN (15:32)
[2016-06-09] MEDS ORDERED: Warfarin 5 MG Tab PO ONE (18:00)
[2016-06-09] MEDS ORDERED: Warfarin 7.5 MG Tab PO SCH (19:20)
[2016-06-09] MEDS: Levofloxacin/Dextrose 5%-Water 500 MG in Premix Bag 1 BAG IV SCH (20:34)
[2016-06-09] MEDS: Donepezil 10 MG Tab PO SCH (21:32)
[2016-06-09] MEDS: Simvastatin 10 MG Tab PO SCH (21:37)
[2016-06-09] MEDS: Vancomycin 1500 MG in Sodium Chloride 0.9% 500 ML IV SCH ×3 (21:38)
[2016-06-10] MEDS: Pantoprazole 40 MG Tab.CR PO SCH (06:30)
[2016-06-10] MEDS: Trospium 20 MG Tab PO SCH ×2 (06:30→15:24)
[2016-06-10] MEDS: Insulin Aspart 100 Units/ML 3 ML Pen SUBCUT SCH ×4 (07:26→22:13)
[2016-06-10] MEDS: Bumetanide 1 MG Tab PO SCH (08:42)
[2016-06-10] MEDS: Vancomycin 1500 MG in Sodium Chloride 0.9% 500 ML IV SCH ×6 (08:42→22:33)
[2016-06-10] MEDS: Mupirocin Oint 22 GM Tube TOP SCH ×2 (08:42→22:09)
[2016-06-10] MEDS: Potassium Chloride 10 MEQ Tab.ER PO SCH (08:43)
[2016-06-10] MEDS: Digoxin 125 MCG Tab PO SCH (08:43)
[2016-06-10] MEDS: Multivitamins,Therapeutic Tab PO SCH (08:44)
[2016-06-10] MEDS: Diltiazem 240 MG Cap.ER PO SCH (08:44)
[2016-06-10] MEDS: Tamsulosin 0.4 MG Cap.ER PO SCH (08:44)
[2016-06-10] MEDS: Metoprolol Tartrate 50 MG Tab PO SCH ×2 (08:44→22:07)
[2016-06-10] MEDS: Gabapentin 300 MG Cap PO SCH ×2 (08:45→22:08)
[2016-06-10] MEDS: LIDOCAINE PO SCH ×3 (08:46→22:10)
[2016-06-10] MEDS: IMATINIB PO SCH (08:46)
[2016-06-10] MEDS: DIPHENHYDRAMINE PO SCH ×3 (08:46→22:10)
[2016-06-10] MEDS: Finasteride 5 MG Tab PO SCH (08:46)
[2016-06-10] MEDS: NYSTATIN PO SCH ×3 (08:46→22:10)
[2016-06-10] MEDS ORDERED: Enoxaparin 30 MG/0.3 ML Syringe SUBCUT SCH (09:00)
--- NOTE | 2016-06-10 10:06 | PCM.PN ---
- General Info Date of Service: 06/10/16 Admission Dx/Problem (Free Text): Admission Diagnosis/Problem Admission Diagnosis/Problem Fever of unknown origin Subjective Update: Follow Up Functional Status: Reports: pain controlled, ambulating, urinating. Denies: tolerating diet, new symptoms - Review of Systems General: Denies: Fever, Fatigue, Malaise, Chills HEENT: Reports: no symptoms Pulmonary: Reports: shortness of breath Cardiovascular: Denies: Chest Pain Gastrointestinal: Denies: Abdominal pain, Nausea, Vomiting Genitourinary: Reports: no symptoms Musculoskeletal: Reports: no symptoms Skin: Reports: no symptoms Neurological: Reports: Other (baseline memory impairment) Psychiatric: Denies: depression, anxiety Systems Review Comment:: No overnight or acute issues. He is alert and awake. He is doing relatively well. He has no new complaints. - Patient Data Vitals - most recent: Last Vital Signs Temp 37.2 C 06/10/16 08:26 Pulse 89 06/10/16 08:44 Resp 20 06/10/16 08:26 BP 116/62 06/10/16 08:44 Pulse Ox 95 06/10/16 08:26 Weight - most recent: 96.116 kg I&O - last 24 hours: Intake & Output 06/09/16 06/10/16 06/10/16 22:59 06:59 14:59 Intake Total 420 240 Output Total 100 Balance 320 240 Lab Results last 24 hrs: Laboratory Results - last 24 hr 06/09/16 06/09/16 06/09/16 Range/Units 17:52 21:02 21:30 WBC (4.23-9.07) K/mm3 RBC (4.63-6.08) M/mm3 Hgb (13.7-17.5) gm/L Hct (40.1-51.0) % MCV (79.0-92.2) fl MCH (25.7-32.2) pg MCHC (32.2-35.5) g/dl RDW Std Deviation (35.1-43.9) fL Plt Count (163-337) K/mm3 MPV (9.4-12.3) fl Neut % (Auto) Lymph % (Auto) [place] % (Auto) Eos % (Auto) Baso % (Auto) Neut # Lymph # [place] # Eos # Baso # Neutrophils % (Manual) (40-60) % Band Neutrophils % (0-10) % Lymphocytes % (Manual) (20-40) % Atypical Lymphs % % Monocytes % (Manual) (2-10) % Eosinophils % (Manual) (0.8-7.0) % Basophils % (Manual) (0.2-1.2) Differential Comment Manual Slide Review Platelet Estimate Polychromasia Anisocytosis Target Cells RBC Morph Comment PT (8.0-13.0) SECONDS INR Sodium (136-145) mEq/L Potassium (3.5-5.1) mEq/L Chloride (98-107) mEq/L Carbon Dioxide (21-32) mEq/L Anion Gap (5-15) BUN (7-18) mg/dL Creatinine (0.7-1.3) mg/dL Est Cr Clr Drug Dosing mL/min Estimated GFR (MDRD) (>60) mL/min BUN/Creatinine Ratio (14-18) Glucose (83-115) mg/dL POC Glucose 133 H 150 H (83-110) mg/dL Calcium (8.5-10.1) mg/dL C-Reactive Protein (<1.0) mg/dL Vancomycin Trough 6.5 L (10.0-20.0) 06/10/16 06/10/16 06/10/16 Range/Units 05:13 05:13 05:13 WBC 40.09 H (4.23-9.07) K/mm3 RBC 3.10 L (4.63-6.08) M/mm3 Hgb 9.4 L (13.7-17.5) gm/L Hct 30.1 L (40.1-51.0) % MCV 97.1 H (79.0-92.2) fl MCH 30.3 (25.7-32.2) pg MCHC 31.2 L (32.2-35.5) g/dl RDW Std Deviation 72.2 H (35.1-43.9) fL Plt Count 105 L (163-337) K/mm3 MPV 9.8 (9.4-12.3) fl Neut % (Auto) Cancelled Lymph % (Auto) Cancelled [place] % (Auto) Cancelled Eos % (Auto) Cancelled Baso % (Auto) Cancelled Neut # Cancelled Lymph # Cancelled [place] # Cancelled Eos # Cancelled Baso # Cancelled Neutrophils % (Manual) 23 L (40-60) % Band Neutrophils % 0 (0-10) % Lymphocytes % (Manual) 77 H (20-40) % Atypical Lymphs % 0 % Monocytes % (Manual) 0 L (2-10) % Eosinophils % (Manual) 0 L (0.8-7.0) % Basophils % (Manual) 0 L (0.2-1.2) Differential Comment See note Manual Slide Review Cancelled Platelet Estimate Decreased Polychromasia 1+ slight Anisocytosis 1+ slight Target Cells 1+ slight RBC Morph Comment Not Reportable PT 17.8 H (8.0-13.0) SECONDS INR 1.59 Sodium 137 (136-145) mEq/L Potassium 3.3 L (3.5-5.1) mEq/L Chloride 102 (98-107) mEq/L Carbon Dioxide 29 (21-32) mEq/L Anion Gap 9.3 (5-15) BUN 13 (7-18) mg/dL Creatinine 1.0 (0.7-1.3) mg/dL Est Cr Clr Drug Dosing 58.72 mL/min Estimated GFR (MDRD) > 60 (>60) mL/min BUN/Creatinine Ratio 13.0 L (14-18) Glucose 138 H (83-115) mg/dL POC Glucose (83-110) mg/dL Calcium 7.3 L (8.5-10.1) mg/dL C-Reactive Protein 12.5 H* (<1.0) mg/dL Vancomycin Trough (10.0-20.0) 06/10/16 Range/Units 06:47 WBC (4.23-9.07) K/mm3 RBC (4.63-6.08) M/mm3 Hgb (13.7-17.5) gm/L Hct (40.1-51.0) % MCV (79.0-92.2) fl MCH (25.7-32.2) pg MCHC (32.2-35.5) g/dl RDW Std Deviation (35.1-43.9) fL Plt Count (163-337) K/mm3 MPV (9.4-12.3) fl Neut % (Auto) Lymph % (Auto) [place] % (Auto) Eos % (Auto) Baso % (Auto) Neut # Lymph # [place] # Eos # Baso # Neutrophils % (Manual) (40-60) % Band Neutrophils % (0-10) % Lymphocytes % (Manual) (20-40) % Atypical Lymphs % % Monocytes % (Manual) (2-10) % Eosinophils % (Manual) (0.8-7.0) % Basophils % (Manual) (0.2-1.2) Differential Comment Manual Slide Review Platelet Estimate Polychromasia Anisocytosis Target Cells RBC Morph Comment PT (8.0-13.0) SECONDS INR Sodium (136-145) mEq/L Potassium (3.5-5.1) mEq/L Chloride (98-107) mEq/L Carbon Dioxide (21-32) mEq/L Anion Gap (5-15) BUN (7-18) mg/dL Creatinine (0.7-1.3) mg/dL Est Cr Clr Drug Dosing mL/min Estimated GFR (MDRD) (>60) mL/min BUN/Creatinine Ratio (14-18) Glucose (83-115) mg/dL POC Glucose 136 H (83-110) mg/dL Calcium (8.5-10.1) mg/dL C-Reactive Protein (<1.0) mg/dL Vancomycin Trough (10.0-20.0) Med Orders - Current: Current Medications Acetaminophen (Tylenol) 650 mg PO Q4H PRN PRN Reason: Pain (Mild 1-3)/fever Last Admin: 06/09/16 15:32 Dose: 650 mg Acetaminophen/Hydrocodone Bitart (Cost 325-5 Mg) 1 tab PO Q4H PRN PRN Reason: Pain (moderate 4-6) Last Admin: 06/08/16 02:21 Dose: 1 tab Al Hydroxide/Mg Hydroxide (Mag-Al Plus) 30 ml PO Q4H PRN PRN Reason: Indigestion Bisacodyl (Dulcolax) 5 mg PO DAILY PRN PRN Reason: Constipation Bumetanide (Bumex) 4 mg PO DAILY [facility] Last Admin: 06/10/16 08:42 Dose: 4 mg Bumetanide (Bumex) 0.5 mg PO DAILY PRN PRN Reason: chf Dextrose/Water (Dextrose 50% In Water) 50 ml IVPUSH ASDIRECTED PRN PRN Reason: Hypoglycemia Digoxin (Lanoxin) 125 mcg PO DAILY [facility] Last Admin: 06/10/16 08:43 Dose: 125 mcg Diltiazem HCl (Dilacor Xr) 240 mg PO DAILY [facility] Last Admin: 06/10/16 08:44 Dose: 240 mg Donepezil HCl (Aricept) 10 mg PO BEDTIME [facility] Last Admin: 06/09/16 21:32 Dose: 10 mg Enoxaparin Sodium (Lovenox) 40 mg SUBCUT DAILY [facility] Finasteride (Proscar) 5 mg PO DAILY [facility] Last Admin: 06/10/16 08:46 Dose: 5 mg Gabapentin (Neurontin) 300 mg PO BEDTIME [facility] Last Admin: 06/09/16 21:36 Dose: 300 mg Gabapentin (Neurontin) 300 mg PO DAILY [facility] Last Admin: 06/10/16 08:45 Dose: 300 mg Hydromorphone HCl (Dilaudid) 0.25 mg IVPUSH Q2H PRN PRN Reason: Pain (severe 7-10) Promethazine HCl 12.5 mg/ (Sodium Chloride) 50.5 mls @ 100 mls/hr IV Q6H PRN PRN Reason: Nausea/Vomiting Levofloxacin/Dextrose 500 mg/ (Premix) 100 mls @ 100 mls/hr IV Q24H [facility] Last Admin: 06/09/16 20:34 Dose: 100 mls/hr Vancomycin HCl 1 gm/Vancomycin HCl 500 mg/ Sodium Chloride 500 mls @ 333 mls/ hr IV Q12H [facility] Last Admin: 06/10/16 08:42 Dose: 333 mls/hr Insulin Aspart (Novolog) 0 unit SUBCUT QIDACANDBED [facility] PRN Reason: Protocol Last Admin: 06/10/16 07:26 Dose: Not Given Loperamide HCl (Imodium) 2 mg PO DAILY PRN PRN Reason: Diarrhea Lorazepam (Ativan) 0.5 mg IV Q6H PRN PRN Reason: Anxiety Last Admin: 06/09/16 22:57 Dose: 0.5 mg Magnesium Sulfate (Pharmacy To Dose - Magnesium Replacement) 1 dose .XX ASDIRECTED [facility] Meclizine HCl (Antivert) 25 mg PO TID PRN PRN Reason: Dizziness Metoprolol Tartrate (Lopressor) 50 mg PO BID [facility] Last Admin: 06/10/16 08:44 Dose: 50 mg Metoprolol Tartrate (Lopressor) 5 mg IVPUSH Q4H PRN PRN Reason: Tachycardia Last Admin: 06/08/16 03:04 Dose: 5 mg Multivitamins (Thera) 1 each PO DAILY [facility] Last Admin: 06/10/16 08:44 Dose: 1 each Mupirocin (Bactroban Oint) 0 gm TOP BID [facility] Last Admin: 06/10/16 08:42 Dose: Not Given Nystatin (Mycostatin) 5 ml PO QID PRN PRN Reason: Pain Nystatin/Triamcinolone Acetonide (Mycolog Crm) 0 gm TOP BID PRN PRN Reason: RASH Ondansetron HCl (Zofran) 4 mg IV Q6H PRN PRN Reason: Nausea/Vomiting Pantoprazole Sodium (Protonix) 40 mg PO DAILY@0700 [facility] Last Admin: 06/10/16 06:30 Dose: 40 mg Diphenhyd/Lidocaine/ (Nystatin 15 Ml) 0 each PO TID [facility] Last Admin: 06/10/16 08:46 Dose: Not Given Imatinib [Gleevec] (600 Mg) 0 each PO DAILY [facility] Last Admin: 06/10/16 08:46 Dose: 3 each Melatonin 3 Mg 0 each PO BEDTIME [facility] Last Admin: 06/09/16 21:37 Dose: Not Given Polyethylene Glycol (Miralax) 17 gm PO DAILY PRN PRN Reason: Constipation Potassium Chloride (Klor-Con 10) 30 meq PO DAILY [facility] Last Admin: 06/10/16 08:43 Dose: 30 meq Potassium Chloride (Pharmacy To Dose - Potassium Replacement) 1 dose .XX ASDIRECTED [facility] Potassium Chloride (Klor-Con M20) 20 meq PO Q3H [facility] Stop: 06/10/16 18:01 Senna/Docusate Sodium (Senna Plus) 2 tab PO DAILY PRN PRN Reason: Constipation Simvastatin (Zocor) 10 mg PO BEDTIME [facility] Last Admin: 06/09/16 21:37 Dose: 10 mg Sitagliptin Phosphate (Januvia) 50 mg PO DAILY [facility] Last Admin: 06/10/16 08:43 Dose: 50 mg Sodium Chloride (Saline Flush) 10 ml FLUSH ASDIRECTED PRN PRN Reason: Keep Vein Open Tamsulosin HCl (Flomax) 0.4 mg PO DAILY [facility] Last Admin: 06/10/16 08:44 Dose: 0.4 mg Temazepam (Restoril) 15 mg PO BEDTIME PRN PRN Reason: Sleep Last Admin: 06/08/16 20:10 Dose: 15 mg Trospium (Sanctura) 20 mg PO BIDAC [facility] Last Admin: 06/10/16 06:30 Dose: 20 mg Vancomycin HCl (Pharmacy To Dose - Vancomycin) 1 dose .XX ASDIRECTED [facility] Warfarin Sodium (Pharmacy To Dose - Warfarin) 1 dose .XX ASDIRECTED [facility] Warfarin Sodium (Coumadin) 7.5 mg PO ONETIME@1800 ONE Stop: 06/10/16 18:01 Discontinued Medications Acetaminophen (Tylenol) 650 mg PO NOW ONE Stop: 06/06/16 17:31 Last Admin: 06/06/16 17:42 Dose: 650 mg Albuterol (Proventil Neb Soln) Confirm Administered Dose 2.5 mg .ROUTE .STK-MED ONE Stop: 06/09/16 08:34 Last Admin: 06/09/16 08:44 Dose: 2.5 mg Bumetanide (Bumex) 1 mg IVPUSH ONETIME ONE Stop: 06/09/16 10:57 Last Admin: 06/09/16 15:37 Dose: 1 mg Enoxaparin Sodium (Lovenox) 30 mg SUBCUT DAILY [facility] Last Admin: 06/10/16 08:45 Dose: 30 mg Furosemide (Lasix) 40 mg IVPUSH NOW ONE Stop: 06/06/16 18:55 Last Admin: 06/06/16 19:22 Dose: 40 mg Hydromorphone HCl (Dilaudid) 0.25 mg IVPUSH Q2H PRN PRN Reason: Pain (severe 7-10) Last Admin: 06/07/16 01:15 Dose: 0.25 mg Sodium Chloride (Normal Saline) 1,000 mls @ 100 mls/hr IV ASDIRECTED [facility] Last Admin: 06/08/16 02:32 Dose: 100 mls/hr Piperacillin Sod/Tazobactam (Sod 3.375 gm/ Sodium Chloride) 100 mls @ 25 mls/ hr IV Q6H [facility] Last Admin: 06/06/16 23:11 Dose: 25 mls/hr Levofloxacin/Dextrose 750 mg/ (Premix) 150 mls @ 100 mls/hr IV ONETIME ONE Stop: 06/06/16 20:26 Last Admin: 06/06/16 19:29 Dose: 100 mls/hr Potassium Chloride 10 meq/ (Premix) 100 mls @ 100 mls/hr IV ASDIRECTED [facility] Vancomycin HCl 1 gm/Vancomycin HCl 500 mg/ Sodium Chloride 500 mls @ 125 mls/ hr IV Q24H [facility] Last Admin: 06/06/16 23:14 Dose: Not Given Magnesium Sulfate 2 gm/ Premix 50 mls @ 50 mls/hr IV ONETIME ONE Stop: 06/06/16 21:59 Last Admin: 06/07/16 00:51 Dose: 50 mls/hr Sodium Chloride (Normal Saline) Confirm Administered Dose 250 mls @ as directed .ROUTE .STK-MED ONE Stop: 06/06/16 20:58 Last Admin: 06/06/16 21:18 Dose: 100 ml Vancomycin HCl 1 gm/Vancomycin HCl 500 mg/ Sodium Chloride 500 mls @ 333 mls/ hr IV Q24H [facility] Last Admin: 06/09/16 21:38 Dose: 333 mls/hr Piperacillin Sod/Tazobactam (Sod 4.5 gm/ Sodium Chloride) 100 mls @ 25 mls/hr IV Q8H [facility] Last Admin: 06/07/16 08:40 Dose: 25 mls/hr Magnesium Sulfate (Magnesium Sulfate 2 Gm In Water 50 Ml) Confirm Administered Dose 50 mls @ as directed .ROUTE .STK-MED ONE Stop: 06/07/16 00:43 Last Admin: 06/07/16 00:51 Dose: Not Given Magnesium Sulfate 2 gm/ Premix 50 mls @ 25 mls/hr IV ONETIME ONE Stop: 06/07/16 13:59 Last Admin: 06/07/16 12:56 Dose: 25 mls/hr Potassium Chloride 10 meq/ (Premix) 100 mls @ 100 mls/hr IV Q1H [facility] Stop: 06/08/16 15:59 Last Admin: 06/08/16 17:13 Dose: 100 mls/hr Potassium Chloride 10 meq/ (Premix) 100 mls @ 100 mls/hr IV Q1H [facility] Stop: 06/09/16 17:59 Last Admin: 06/09/16 18:44 Dose: 100 mls/hr Metoprolol Tartrate (Lopressor) 25 mg PO DAILY PRN PRN Reason: Other Metoprolol Tartrate (Lopressor) Confirm Administered Dose 5 mg .ROUTE .STK-MED ONE Stop: 06/07/16 19:18 Last Admin: 06/07/16 20:10 Dose: Not Given Non-Formulary Medication (Insulin Glarg,Human.Rec.Analog) 10 units SUBCUT ASDIRECTED [facility] Potassium Chloride (Klor-Con M20) 20 meq PO Q3H [facility] Stop: 06/07/16 00:01 Last Admin: 06/07/16 00:51 Dose: 20 meq Potassium Chloride (Klor-Con M20) 60 meq PO ONETIME ONE Stop: 06/08/16 19:01 Last Admin: 06/08/16 20:09 Dose: 60 meq Potassium Chloride (Klor-Con M20) 20 meq PO Q3H [facility] Stop: 06/09/16 15:01 Last Admin: 06/09/16 15:40 Dose: Not Given Senna/Docusate Sodium (Senna Plus) 1 tab PO BID PRN PRN Reason: Constipation Warfarin Sodium (Coumadin) 5 mg PO ONETIME@1800 ONE Stop: 06/07/16 18:01 Last Admin: 06/07/16 18:04 Dose: 5 mg Warfarin Sodium (Coumadin) 5 mg PO ONETIME@1800 ONE Stop: 06/08/16 18:01 Last Admin: 06/08/16 17:13 Dose: 5 mg Warfarin Sodium (Coumadin) 5 mg PO ONETIME@1800 ONE Stop: 06/09/16 18:01 Last Admin: 06/09/16 17:27 Dose: 5 mg - Exam Quality Assessment: supplemental oxygen General: alert, cooperative, no acute distress, other (Obese) HEENT: Pupils equal, Pupils reactive, EOMI, Mucous membr. moist/pink Neck: supple, trachea midline, no JVD, no thyromegaly, other (short and thick) Lungs: Normal respiratory effort, Decreased breath sounds Cardiovascular: Irregular Rhythm, Other (irregular rate) Abdomen: bowel sounds present, soft, no tenderness, no distension (Male) Exam: Deferred Back Exam: normal inspection, decreased range of motion Extremities: no edema, normal pulses, no tenderness/swelling, no clubbing, no cyanosis, no calf tenderness Peripheral Pulses: 2+: dorsalis pedis (L), dorsalis pedis (R) Skin: warm, dry, intact Neurological: no new focal deficit Psy/Mental Status: alert, normal affect, normal mood - Problem List Review Problem List Initiated/Reviewed/Updated: Yes - My Orders Last 24 Hours: My Active Orders 06/09/16 10:58 HYDROmorphone [Dilaudid] 0.25 mg IVPUSH Q2H PRN 06/09/16 11:51 Consult to Speech Language Pathology [[employer] Evaluation and Treatment] [CONS] Routine 06/09/16 Dinner 2 Gram Sodium Diet [DIET] Consistent Carbohydrate Diet [DIET] Thickened Liquids [DIET] 06/10/16 12:00 Potassium Chloride [Klor-Con M20] 20 meq PO Q3H 06/10/16 18:00 Warfarin [Coumadin] 7.5 mg PO ONETIME@1800 ONE 06/10/16 21:00 VANCOMYCIN TROUGH [CHEM] Timed 06/11/16 05:11 BASIC METABOLIC PANEL,BMP [CHEM] AM C-REACTIVE PROTEIN [CHEM] AM CBC WITH AUTO DIFF [HEME] AM INR,PT,PROTHROMBIN TIME [COAG] AM 06/11/16 09:00 Enoxaparin [Lovenox] 40 mg SUBCUT DAILY 06/14/16 07:00 CBC W/O DIFF,HEMOGRAM [HEME] MOTH@0700 06/17/16 07:00 CBC W/O DIFF,HEMOGRAM [HEME] MOTH@0700 06/21/16 07:00 CBC W/O DIFF,HEMOGRAM [HEME] MOTH@0700 06/24/16 07:00 CBC W/O DIFF,HEMOGRAM [HEME] MOTH@0700 06/28/16 07:00 CBC W/O DIFF,HEMOGRAM [HEME] MOTH@0700 - Plan Plan:: Assessment/Plan: Acute: 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 Haddad at [facility] - Continue Chemodrug Hypokalemia - K is 3 ---> 3.3 - Likely for diuretic and inadequate intake - Pharmacy to replete and monitor Subtherapeutic INR - INR at 1.4 ---> 1.5 - Continue home warfarin dose - Lovenox SubQ to augment - Pharmacy to dose and monitor High Risk Aspiration - [employer] consulted: recommended regular with nectar thick - Aspiration protocol Resolved: Influenza Screening Negative S/p AMS. 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 - CXR: no obvious infiltrate - Must be aggressive since in ATB due to his low WBC and Immuno-suppressed state - Blood Culture and UA bot negative - Continue IV Levaquin/Zosyn/Vancomycin all for pharmacy to dose - CRP 7.5 ---> 8.4 --> 5.5 S/p Elevated Troponin Level likely from LH Strain and Demand Ischemia from A-fib - On ASA, BB, CCB and Warfarin - Troponin 0.118 ---> 0.059 - CKMB is normal (1) 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 (MCV elevated) - Baseline Hgb is 9-10 - He needs transfusion given his co-morbid conditions - ED provider already ordered 2 units of PRBCs - Hgb Level today is 10.1 S/p Mild HF With Preserved EF 55%/Grade 3 Diastolic Dysfunction - Has some lung crackles and BNP is 664 - Continue heart failure home medications - AHA diet with 2 gram salt daily restrictions S/p Respiratory Distress - 2/2 poor oral control - [employer] to eval - NPO for now - CXR shows worse than previous study Chronic: Chronic Atrial Fibrillation, HR controlled on Warfarin HTN HLD Pulmonary HTN NORMA on CPAP GERD DM2 Urinary Incontinence ED Memory Impairment CLL/CML Peripheral Neuropathy Obesity Plan: He remains clinically stable Continue current treatment Routine AM Labs Continue PT/OT SW/CM for d/c planning DVT ppx: Warfarin Aspiration/Fall/Sundowning Precautions Recommend SNF/NH Additional orders as above Code Status: 1 Spoke to sons (3) who were present at bedside and expressed my concerns about his ability to be on his own independently. I discussed with them the benefits of placing him on NH/SNF with his declining functional/cognitive status, and they were receptive to this idea. Family members will gather all together to discuss this d/c care plans. SW has been on board for SNH/Rehab applications. LOS > 96hrs, pending patient to SNF/Rehab
[2016-06-10] MEDS: Potassium Chloride 20 MEQ Tab.ER PO SCH ×3 (11:36→17:43)
[2016-06-10] MEDS: Acetaminophen 325 MG Tab PO PRN (12:44)
[2016-06-10] MEDS ORDERED: Warfarin 7.5 MG Tab PO ONE (18:00)
[2016-06-10] MEDS: Levofloxacin/Dextrose 5%-Water 500 MG in Premix Bag 1 BAG IV SCH (18:34)
[2016-06-10] MEDS: Simvastatin 10 MG Tab PO SCH (22:07)
[2016-06-10] MEDS: Temazepam 15 MG Cap PO PRN (22:07)
[2016-06-10] MEDS: Donepezil 10 MG Tab PO SCH (22:08)
[2016-06-11] MEDS: Pantoprazole 40 MG Tab.CR PO SCH (06:28)
[2016-06-11] MEDS: Insulin Aspart 100 Units/ML 3 ML Pen SUBCUT SCH ×4 (06:28→22:15)
[2016-06-11] MEDS: Trospium 20 MG Tab PO SCH ×2 (06:28→17:05)
[2016-06-11] MEDS: Multivitamins,Therapeutic Tab PO SCH (08:02)
[2016-06-11] MEDS: Tamsulosin 0.4 MG Cap.ER PO SCH (08:02)
[2016-06-11] MEDS: Potassium Chloride 10 MEQ Tab.ER PO SCH (08:02)
[2016-06-11] MEDS: Metoprolol Tartrate 50 MG Tab PO SCH ×2 (08:03→22:08)
[2016-06-11] MEDS: Bumetanide 1 MG Tab PO SCH (08:03)
[2016-06-11] MEDS: Digoxin 125 MCG Tab PO SCH (08:04)
[2016-06-11] MEDS: Diltiazem 240 MG Cap.ER PO SCH (08:04)
[2016-06-11] MEDS: Gabapentin 300 MG Cap PO SCH ×2 (08:05→22:10)
[2016-06-11] MEDS: Enoxaparin 40 MG/0.4 ML Syringe SUBCUT SCH (08:05)
[2016-06-11] MEDS: DIPHENHYDRAMINE PO SCH ×3 (08:06→22:07)
[2016-06-11] MEDS: LIDOCAINE PO SCH ×3 (08:06→22:07)
[2016-06-11] MEDS: NYSTATIN PO SCH ×3 (08:06→22:07)
[2016-06-11] MEDS: Finasteride 5 MG Tab PO SCH (08:06)
[2016-06-11] MEDS: IMATINIB PO SCH (08:08)
[2016-06-11] MEDS ORDERED: Potassium Chloride 20 MEQ Tab.ER PO ONE (08:45)
[2016-06-11] MEDS: Mupirocin Oint 22 GM Tube TOP SCH ×2 (09:01→22:04)
[2016-06-11] MEDS: Vancomycin 1500 MG in Sodium Chloride 0.9% 500 ML IV SCH ×3 (09:25)
--- NOTE | 2016-06-11 10:18 | PCM.PN ---
- General Info Date of Service: 06/11/16 Admission Dx/Problem (Free Text): Admission Diagnosis/Problem Admission Diagnosis/Problem Fever of unknown origin Subjective Update: Follow Up Functional Status: Reports: pain controlled, tolerating diet, ambulating, urinating. Denies: new symptoms - Review of Systems General: Denies: Fever, Weakness, Fatigue, Malaise, Chills HEENT: Reports: no symptoms Pulmonary: Denies: shortness of breath, cough Cardiovascular: Denies: Chest Pain Gastrointestinal: Denies: Abdominal pain, Difficulty swallowing, Nausea, Vomiting Genitourinary: Reports: no symptoms Musculoskeletal: Reports: no symptoms Skin: Reports: no symptoms Neurological: Denies: Difficulty Walking, Gait Disturbance Psychiatric: Denies: depression, anxiety, hallucinations Systems Review Comment:: No overnight or acute issues. He is doing relatively well. His follow up CXR is stable. He remains afebrile. - Patient Data Vitals - most recent: Last Vital Signs Temp 37.2 C 06/11/16 07:39 Pulse 85 06/11/16 08:03 Resp 18 06/11/16 07:39 BP 116/76 06/11/16 08:03 Pulse Ox 91 L 06/11/16 07:39 Weight - most recent: 93.576 kg I&O - last 24 hours: Intake & Output 06/10/16 06/11/16 06/11/16 22:59 06:59 14:59 Intake Total 600 400 Output Total 1200 500 Balance -600 -100 Lab Results last 24 hrs: Laboratory Results - last 24 hr 06/06/16 06/09/16 06/10/16 Range/Units 22:13 12:01 11:32 WBC (4.23-9.07) K/mm3 RBC (4.63-6.08) M/mm3 Hgb (13.7-17.5) gm/L Hct (40.1-51.0) % MCV (79.0-92.2) fl MCH (25.7-32.2) pg MCHC (32.2-35.5) g/dl RDW Std Deviation (35.1-43.9) fL Plt Count (163-337) K/mm3 MPV (9.4-12.3) fl Neut % (Auto) (34.0-67.9) % Lymph % (Auto) (21.8-53.1) % [place] % (Auto) (5.3-12.2) % Eos % (Auto) (0.8-7.0) Baso % (Auto) (0.1-1.2) % Neut # (1.78-5.38) K/mm3 Lymph # (1.32-3.57) K/mm3 [place] # (0.30-0.82) K/mm3 Eos # (0.04-0.54) K/mm3 Baso # (0.01-0.08) K/mm3 Manual Slide Review PT (8.0-13.0) SECONDS INR Sodium (136-145) mEq/L Potassium (3.5-5.1) mEq/L Chloride (98-107) mEq/L Carbon Dioxide (21-32) mEq/L Anion Gap (5-15) BUN (7-18) mg/dL Creatinine (0.7-1.3) mg/dL Est Cr Clr Drug Dosing mL/min Estimated GFR (MDRD) (>60) mL/min BUN/Creatinine Ratio (14-18) Glucose (83-115) mg/dL POC Glucose 101 204 H 172 H (83-110) mg/dL Calcium (8.5-10.1) mg/dL C-Reactive Protein (<1.0) mg/dL Vancomycin Trough (10.0-20.0) 06/10/16 06/10/16 06/10/16 Range/Units 17:42 20:49 21:11 WBC (4.23-9.07) K/mm3 RBC (4.63-6.08) M/mm3 Hgb (13.7-17.5) gm/L Hct (40.1-51.0) % MCV (79.0-92.2) fl MCH (25.7-32.2) pg MCHC (32.2-35.5) g/dl RDW Std Deviation (35.1-43.9) fL Plt Count (163-337) K/mm3 MPV (9.4-12.3) fl Neut % (Auto) (34.0-67.9) % Lymph % (Auto) (21.8-53.1) % [place] % (Auto) (5.3-12.2) % Eos % (Auto) (0.8-7.0) Baso % (Auto) (0.1-1.2) % Neut # (1.78-5.38) K/mm3 Lymph # (1.32-3.57) K/mm3 [place] # (0.30-0.82) K/mm3 Eos # (0.04-0.54) K/mm3 Baso # (0.01-0.08) K/mm3 Manual Slide Review PT (8.0-13.0) SECONDS INR Sodium (136-145) mEq/L Potassium (3.5-5.1) mEq/L Chloride (98-107) mEq/L Carbon Dioxide (21-32) mEq/L Anion Gap (5-15) BUN (7-18) mg/dL Creatinine (0.7-1.3) mg/dL Est Cr Clr Drug Dosing mL/min Estimated GFR (MDRD) (>60) mL/min BUN/Creatinine Ratio (14-18) Glucose (83-115) mg/dL POC Glucose 142 H 169 H (83-110) mg/dL Calcium (8.5-10.1) mg/dL C-Reactive Protein (<1.0) mg/dL Vancomycin Trough 12.6 (10.0-20.0) 06/10/16 06/11/16 06/11/16 Range/Units 22:12 05:21 05:21 WBC 36.71 H (4.23-9.07) K/mm3 RBC 3.06 L (4.63-6.08) M/mm3 Hgb 9.3 L (13.7-17.5) gm/L Hct 29.9 L (40.1-51.0) % MCV 97.7 H (79.0-92.2) fl MCH 30.4 (25.7-32.2) pg MCHC 31.1 L (32.2-35.5) g/dl RDW Std Deviation 71.3 H (35.1-43.9) fL Plt Count 103 L (163-337) K/mm3 MPV 9.7 (9.4-12.3) fl Neut % (Auto) 14.5 L (34.0-67.9) % Lymph % (Auto) 80.8 H (21.8-53.1) % [place] % (Auto) 4.1 L (5.3-12.2) % Eos % (Auto) 0.3 L (0.8-7.0) Baso % (Auto) 0.1 (0.1-1.2) % Neut # 5.36 (1.78-5.38) K/mm3 Lymph # 29.65 H (1.32-3.57) K/mm3 [place] # 1.52 H (0.30-0.82) K/mm3 Eos # 0.10 (0.04-0.54) K/mm3 Baso # 0.02 (0.01-0.08) K/mm3 Manual Slide Review Abnormal smear PT 18.0 H (8.0-13.0) SECONDS INR 1.60 Sodium (136-145) mEq/L Potassium (3.5-5.1) mEq/L Chloride (98-107) mEq/L Carbon Dioxide (21-32) mEq/L Anion Gap (5-15) BUN (7-18) mg/dL Creatinine (0.7-1.3) mg/dL Est Cr Clr Drug Dosing mL/min Estimated GFR (MDRD) (>60) mL/min BUN/Creatinine Ratio (14-18) Glucose (83-115) mg/dL POC Glucose 149 H (83-110) mg/dL Calcium (8.5-10.1) mg/dL C-Reactive Protein (<1.0) mg/dL Vancomycin Trough (10.0-20.0) 06/11/16 06/11/16 Range/Units 05:21 06:25 WBC (4.23-9.07) K/mm3 RBC (4.63-6.08) M/mm3 Hgb (13.7-17.5) gm/L Hct (40.1-51.0) % MCV (79.0-92.2) fl MCH (25.7-32.2) pg MCHC (32.2-35.5) g/dl RDW Std Deviation (35.1-43.9) fL Plt Count (163-337) K/mm3 MPV (9.4-12.3) fl Neut % (Auto) (34.0-67.9) % Lymph % (Auto) (21.8-53.1) % [place] % (Auto) (5.3-12.2) % Eos % (Auto) (0.8-7.0) Baso % (Auto) (0.1-1.2) % Neut # (1.78-5.38) K/mm3 Lymph # (1.32-3.57) K/mm3 [place] # (0.30-0.82) K/mm3 Eos # (0.04-0.54) K/mm3 Baso # (0.01-0.08) K/mm3 Manual Slide Review PT (8.0-13.0) SECONDS INR Sodium 138 (136-145) mEq/L Potassium 3.4 L (3.5-5.1) mEq/L Chloride 102 (98-107) mEq/L Carbon Dioxide 28 (21-32) mEq/L Anion Gap 11.4 (5-15) BUN 13 (7-18) mg/dL Creatinine 0.9 (0.7-1.3) mg/dL Est Cr Clr Drug Dosing 65.24 mL/min Estimated GFR (MDRD) > 60 (>60) mL/min BUN/Creatinine Ratio 14.4 (14-18) Glucose 117 H (83-115) mg/dL POC Glucose 113 H (83-110) mg/dL Calcium 7.4 L (8.5-10.1) mg/dL C-Reactive Protein 9.7 H* (<1.0) mg/dL Vancomycin Trough (10.0-20.0) Med Orders - Current: Current Medications Acetaminophen (Tylenol) 650 mg PO Q4H PRN PRN Reason: Pain (Mild 1-3)/fever Last Admin: 06/10/16 12:44 Dose: 650 mg Acetaminophen/Hydrocodone Bitart ([place] 325-5 Mg) 1 tab PO Q4H PRN PRN Reason: Pain (moderate 4-6) Last Admin: 06/08/16 02:21 Dose: 1 tab Al Hydroxide/Mg Hydroxide (Mag-Al Plus) 30 ml PO Q4H PRN PRN Reason: Indigestion Bisacodyl (Dulcolax) 5 mg PO DAILY PRN PRN Reason: Constipation Bumetanide (Bumex) 4 mg PO DAILY [facility] Last Admin: 06/11/16 08:03 Dose: 4 mg Bumetanide (Bumex) 0.5 mg PO DAILY PRN PRN Reason: chf Dextrose/Water (Dextrose 50% In Water) 50 ml IVPUSH ASDIRECTED PRN PRN Reason: Hypoglycemia Digoxin (Lanoxin) 125 mcg PO DAILY [facility] Last Admin: 06/11/16 08:04 Dose: 125 mcg Diltiazem HCl (Dilacor Xr) 240 mg PO DAILY [facility] Last Admin: 06/11/16 08:04 Dose: 240 mg Donepezil HCl (Aricept) 10 mg PO BEDTIME [facility] Last Admin: 06/10/16 22:08 Dose: 10 mg Enoxaparin Sodium (Lovenox) 40 mg SUBCUT DAILY [facility] Last Admin: 06/11/16 08:05 Dose: 40 mg Finasteride (Proscar) 5 mg PO DAILY [facility] Last Admin: 06/11/16 08:06 Dose: 5 mg Gabapentin (Neurontin) 300 mg PO BEDTIME [facility] Last Admin: 06/10/16 22:08 Dose: 300 mg Gabapentin (Neurontin) 300 mg PO DAILY [facility] Last Admin: 06/11/16 08:05 Dose: 300 mg Hydromorphone HCl (Dilaudid) 0.25 mg IVPUSH Q2H PRN PRN Reason: Pain (severe 7-10) Promethazine HCl 12.5 mg/ (Sodium Chloride) 50.5 mls @ 100 mls/hr IV Q6H PRN PRN Reason: Nausea/Vomiting Levofloxacin/Dextrose 500 mg/ (Premix) 100 mls @ 100 mls/hr IV Q24H [facility] Last Admin: 06/10/16 18:34 Dose: 100 mls/hr Vancomycin HCl 1 gm/Vancomycin HCl 500 mg/ Sodium Chloride 500 mls @ 333 mls/ hr IV Q12H [facility] Last Admin: 06/11/16 09:25 Dose: 333 mls/hr Insulin Aspart (Novolog) 0 unit SUBCUT QIDACANDBED [facility] PRN Reason: Protocol Last Admin: 06/11/16 06:28 Dose: Not Given Loperamide HCl (Imodium) 2 mg PO DAILY PRN PRN Reason: Diarrhea Lorazepam (Ativan) 0.5 mg IV Q6H PRN PRN Reason: Anxiety Last Admin: 06/09/16 22:57 Dose: 0.5 mg Magnesium Sulfate (Pharmacy To Dose - Magnesium Replacement) 1 dose .XX ASDIRECTED [facility] Meclizine HCl (Antivert) 25 mg PO TID PRN PRN Reason: Dizziness Metoprolol Tartrate (Lopressor) 50 mg PO BID [facility] Last Admin: 06/11/16 08:03 Dose: 50 mg Metoprolol Tartrate (Lopressor) 5 mg IVPUSH Q4H PRN PRN Reason: Tachycardia Last Admin: 06/08/16 03:04 Dose: 5 mg Multivitamins (Thera) 1 each PO DAILY [facility] Last Admin: 06/11/16 08:02 Dose: 1 each Mupirocin (Bactroban Oint) 0 gm TOP BID [facility] Last Admin: 06/11/16 09:01 Dose: Not Given Nystatin (Mycostatin) 5 ml PO QID PRN PRN Reason: Pain Nystatin/Triamcinolone Acetonide (Mycolog Crm) 0 gm TOP BID PRN PRN Reason: RASH Ondansetron HCl (Zofran) 4 mg IV Q6H PRN PRN Reason: Nausea/Vomiting Pantoprazole Sodium (Protonix) 40 mg PO DAILY@0700 [facility] Last Admin: 06/11/16 06:28 Dose: 40 mg Diphenhyd/Lidocaine/ (Nystatin 15 Ml) 0 each PO TID [facility] Last Admin: 06/11/16 08:06 Dose: Not Given Imatinib [Gleevec] (600 Mg) 0 each PO DAILY [facility] Last Admin: 06/11/16 08:08 Dose: 1 each Melatonin 3 Mg 0 each PO BEDTIME [facility] Last Admin: 06/10/16 22:10 Dose: Not Given Polyethylene Glycol (Miralax) 17 gm PO DAILY PRN PRN Reason: Constipation Potassium Chloride (Klor-Con 10) 30 meq PO DAILY [facility] Last Admin: 06/11/16 08:02 Dose: 30 meq Potassium Chloride (Pharmacy To Dose - Potassium Replacement) 1 dose .XX ASDIRECTED [facility] Senna/Docusate Sodium (Senna Plus) 2 tab PO DAILY PRN PRN Reason: Constipation Simvastatin (Zocor) 10 mg PO BEDTIME [facility] Last Admin: 06/10/16 22:07 Dose: 10 mg Sitagliptin Phosphate (Januvia) 50 mg PO DAILY [facility] Last Admin: 06/11/16 08:02 Dose: 50 mg Sodium Chloride (Saline Flush) 10 ml FLUSH ASDIRECTED PRN PRN Reason: Keep Vein Open Tamsulosin HCl (Flomax) 0.4 mg PO DAILY [facility] Last Admin: 06/11/16 08:02 Dose: 0.4 mg Temazepam (Restoril) 15 mg PO BEDTIME PRN PRN Reason: Sleep Last Admin: 06/10/16 22:07 Dose: 15 mg Trospium (Sanctura) 20 mg PO BIDAC [facility] Last Admin: 06/11/16 06:28 Dose: 20 mg Vancomycin HCl (Pharmacy To Dose - Vancomycin) 1 dose .XX ASDIRECTED [facility] Warfarin Sodium (Pharmacy To Dose - Warfarin) 1 dose .XX ASDIRECTED [facility] Warfarin Sodium (Coumadin) 7.5 mg PO ONETIME ONE Stop: 06/11/16 18:01 Discontinued Medications Acetaminophen (Tylenol) 650 mg PO NOW ONE Stop: 06/06/16 17:31 Last Admin: 06/06/16 17:42 Dose: 650 mg Albuterol (Proventil Neb Soln) Confirm Administered Dose 2.5 mg .ROUTE .STK-MED ONE Stop: 06/09/16 08:34 Last Admin: 06/09/16 08:44 Dose: 2.5 mg Bumetanide (Bumex) 1 mg IVPUSH ONETIME ONE Stop: 06/09/16 10:57 Last Admin: 06/09/16 15:37 Dose: 1 mg Enoxaparin Sodium (Lovenox) 30 mg SUBCUT DAILY [facility] Last Admin: 06/10/16 08:45 Dose: 30 mg Furosemide (Lasix) 40 mg IVPUSH NOW ONE Stop: 06/06/16 18:55 Last Admin: 06/06/16 19:22 Dose: 40 mg Hydromorphone HCl (Dilaudid) 0.25 mg IVPUSH Q2H PRN PRN Reason: Pain (severe 7-10) Last Admin: 06/07/16 01:15 Dose: 0.25 mg Sodium Chloride (Normal Saline) 1,000 mls @ 100 mls/hr IV ASDIRECTED [facility] Last Admin: 06/08/16 02:32 Dose: 100 mls/hr Piperacillin Sod/Tazobactam (Sod 3.375 gm/ Sodium Chloride) 100 mls @ 25 mls/ hr IV Q6H [facility] Last Admin: 06/06/16 23:11 Dose: 25 mls/hr Levofloxacin/Dextrose 750 mg/ (Premix) 150 mls @ 100 mls/hr IV ONETIME ONE Stop: 06/06/16 20:26 Last Admin: 06/06/16 19:29 Dose: 100 mls/hr Potassium Chloride 10 meq/ (Premix) 100 mls @ 100 mls/hr IV ASDIRECTED [facility] Vancomycin HCl 1 gm/Vancomycin HCl 500 mg/ Sodium Chloride 500 mls @ 125 mls/ hr IV Q24H [facility] Last Admin: 06/06/16 23:14 Dose: Not Given Magnesium Sulfate 2 gm/ Premix 50 mls @ 50 mls/hr IV ONETIME ONE Stop: 06/06/16 21:59 Last Admin: 06/07/16 00:51 Dose: 50 mls/hr Sodium Chloride (Normal Saline) Confirm Administered Dose 250 mls @ as directed .ROUTE .STK-MED ONE Stop: 06/06/16 20:58 Last Admin: 06/06/16 21:18 Dose: 100 ml Vancomycin HCl 1 gm/Vancomycin HCl 500 mg/ Sodium Chloride 500 mls @ 333 mls/ hr IV Q24H [facility] Last Admin: 06/09/16 21:38 Dose: 333 mls/hr Piperacillin Sod/Tazobactam (Sod 4.5 gm/ Sodium Chloride) 100 mls @ 25 mls/hr IV Q8H [facility] Last Admin: 06/07/16 08:40 Dose: 25 mls/hr Magnesium Sulfate (Magnesium Sulfate 2 Gm In Water 50 Ml) Confirm Administered Dose 50 mls @ as directed .ROUTE .STK-MED ONE Stop: 06/07/16 00:43 Last Admin: 06/07/16 00:51 Dose: Not Given Magnesium Sulfate 2 gm/ Premix 50 mls @ 25 mls/hr IV ONETIME ONE Stop: 06/07/16 13:59 Last Admin: 06/07/16 12:56 Dose: 25 mls/hr Potassium Chloride 10 meq/ (Premix) 100 mls @ 100 mls/hr IV Q1H [facility] Stop: 06/08/16 15:59 Last Admin: 06/08/16 17:13 Dose: 100 mls/hr Potassium Chloride 10 meq/ (Premix) 100 mls @ 100 mls/hr IV Q1H [facility] Stop: 06/09/16 17:59 Last Admin: 06/09/16 18:44 Dose: 100 mls/hr Metoprolol Tartrate (Lopressor) 25 mg PO DAILY PRN PRN Reason: Other Metoprolol Tartrate (Lopressor) Confirm Administered Dose 5 mg .ROUTE .STK-MED ONE Stop: 06/07/16 19:18 Last Admin: 06/07/16 20:10 Dose: Not Given Non-Formulary Medication (Insulin Glarg,Human.Rec.Analog) 10 units SUBCUT ASDIRECTED [facility] Potassium Chloride (Klor-Con M20) 20 meq PO Q3H [facility] Stop: 06/07/16 00:01 Last Admin: 06/07/16 00:51 Dose: 20 meq Potassium Chloride (Klor-Con M20) 60 meq PO ONETIME ONE Stop: 06/08/16 19:01 Last Admin: 06/08/16 20:09 Dose: 60 meq Potassium Chloride (Klor-Con M20) 20 meq PO Q3H [facility] Stop: 06/09/16 15:01 Last Admin: 06/09/16 15:40 Dose: Not Given Potassium Chloride (Klor-Con M20) 20 meq PO Q3H [facility] Stop: 06/10/16 18:01 Last Admin: 06/10/16 17:43 Dose: 20 meq Potassium Chloride (Klor-Con M20) 40 meq PO ONETIME ONE Stop: 06/11/16 08:46 Last Admin: 06/11/16 09:25 Dose: 40 meq Senna/Docusate Sodium (Senna Plus) 1 tab PO BID PRN PRN Reason: Constipation Warfarin Sodium (Coumadin) 5 mg PO ONETIME@1800 ONE Stop: 06/07/16 18:01 Last Admin: 06/07/16 18:04 Dose: 5 mg Warfarin Sodium (Coumadin) 5 mg PO ONETIME@1800 ONE Stop: 06/08/16 18:01 Last Admin: 06/08/16 17:13 Dose: 5 mg Warfarin Sodium (Coumadin) 5 mg PO ONETIME@1800 ONE Stop: 06/09/16 18:01 Last Admin: 06/09/16 17:27 Dose: 5 mg Warfarin Sodium (Coumadin) 7.5 mg PO ONETIME@1800 ONE Stop: 06/10/16 18:01 Last Admin: 06/10/16 17:41 Dose: 7.5 mg - Exam General: alert, cooperative, no acute distress, other (Obese) HEENT: Pupils equal, Pupils reactive, EOMI, Mucous membr. moist/pink Neck: supple, trachea midline, no JVD, other (short and thick) Lungs: Normal respiratory effort, Decreased breath sounds, Crackles (mild) Cardiovascular: Irregular Rhythm, Other (irregular rate) Abdomen: bowel sounds present, soft, no tenderness, no distension, other (Obese) (Male) Exam: Deferred Back Exam: normal inspection, decreased range of motion Extremities: no edema, normal pulses, no tenderness/swelling, no clubbing, no cyanosis, no calf tenderness Peripheral Pulses: 2+: dorsalis pedis (L), dorsalis pedis (R) Skin: warm, dry, intact Neurological: no new focal deficit Psy/Mental Status: alert, normal affect, normal mood - Problem List Review Problem List Initiated/Reviewed/Updated: Yes - My Orders Last 24 Hours: My Active Orders 06/11/16 09:00 Enoxaparin [Lovenox] 40 mg SUBCUT DAILY 06/11/16 10:13 Chest 2V [CR] Routine 06/11/16 18:00 Warfarin [Coumadin] 7.5 mg PO ONETIME ONE 06/12/16 05:11 INR,PT,PROTHROMBIN TIME [COAG] AM 06/13/16 05:11 INR,PT,PROTHROMBIN TIME [COAG] AM 06/14/16 05:11 INR,PT,PROTHROMBIN TIME [COAG] AM 06/14/16 07:00 CBC W/O DIFF,HEMOGRAM [HEME] MOTH@0700 06/15/16 05:11 INR,PT,PROTHROMBIN TIME [COAG] AM 06/16/16 05:11 INR,PT,PROTHROMBIN TIME [COAG] AM 06/17/16 07:00 CBC W/O DIFF,HEMOGRAM [HEME] MOTH@0700 06/21/16 07:00 CBC W/O DIFF,HEMOGRAM [HEME] MOTH@0700 06/24/16 07:00 CBC W/O DIFF,HEMOGRAM [HEME] MOTH@0700 06/28/16 07:00 CBC W/O DIFF,HEMOGRAM [HEME] MOTH@0700 - Plan Plan:: Assessment/Plan: Acute: 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 Haddad at [facility] - Continue Chemodrug Hypokalemia - K is 3 ---> 3.3 ---> 3.4 - Likely for diuretic and inadequate intake - Pharmacy to replete and monitor Subtherapeutic INR - INR at 1.4 ---> 1.5 - Continue home warfarin dose - Lovenox SubQ to augment - Pharmacy to dose and monitor High Risk Aspiration - SWATCH MAKER consulted: recommended regular with nectar thick - Aspiration protocol Resolved: Influenza Screening Negative S/p AMS. 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 - CXR: no obvious infiltrate - Must be aggressive since in ATB due to his low WBC and Immuno-suppressed state - Blood Culture and UA bot negative - Continue IV Levaquin/Zosyn/Vancomycin all for pharmacy to dose - CRP 7.5 ---> 8.4 --> 5.5 S/p Elevated Troponin Level likely from LH Strain and Demand Ischemia from A-fib - On ASA, BB, CCB and Warfarin - Troponin 0.118 ---> 0.059 - CKMB is normal (1) 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 (MCV elevated) - Baseline Hgb is 9-10 - He needs transfusion given his co-morbid conditions - ED provider already ordered 2 units of PRBCs - Hgb Level today is 10.1 S/p Mild HF With Preserved EF 55%/Grade 3 Diastolic Dysfunction - Has some lung crackles and BNP is 664 - Continue heart failure home medications - AHA diet with 2 gram salt daily restrictions S/p Respiratory Distress - 2/2 poor oral control - SWATCH MAKER to eval - NPO for now - CXR shows worse than previous study Chronic: Chronic Atrial Fibrillation, HR controlled on Warfarin HTN HLD Pulmonary HTN NORMA on CPAP GERD DM2 Urinary Incontinence ED Memory Impairment CLL/CML Peripheral Neuropathy Obesity Plan: He remains clinically stable Continue current treatment Change diet to regular thin w/o straw Overnight pulse ox Routine AM Labs Continue PT/OT SW/CM for d/c planning DVT ppx: Warfarin Aspiration/Fall/owning Precautions Recommend SNF/NH Additional orders as above Code Status: 1 Family wants him back at [facility], possible d/c in am
--- NOTE | 2016-06-11 11:30 | CR ---
Chest: Two views of the chest were obtained. Comparison: Previous chest x-ray of 06/09/16 and 06/06/16. Lung markings are diffusely increased felt compatible with pulmonary vascular congestion. Diminished density seen within both lung bases from prior exam. Small pleural effusions are seen as well as intrafissural fluid within the major fissure as seen on the lateral view. Heart is enlarged. Impression: 1. Improved densities within both lung bases from prior chest x-ray. 2. Diffuse pulmonary vascular congestion remains as well as appearance of small pleural effusions. 3. Stable cardiomegaly. Diagnostic code #3
[2016-06-11] MEDS ORDERED: Warfarin 7.5 MG Tab PO ONE (18:00)
[2016-06-11] MEDS: Donepezil 10 MG Tab PO SCH (22:03)
[2016-06-11] MEDS: Simvastatin 10 MG Tab PO SCH (22:06)
[2016-06-11] MEDS: Acetaminophen 325 MG Tab PO PRN (22:12)
[2016-06-12] MEDS: Trospium 20 MG Tab PO SCH (06:40)
[2016-06-12] MEDS: Pantoprazole 40 MG Tab.CR PO SCH (06:40)
[2016-06-12] MEDS: Insulin Aspart 100 Units/ML 3 ML Pen SUBCUT SCH ×2 (06:41→11:16)
[2016-06-12] MEDS: Enoxaparin 40 MG/0.4 ML Syringe SUBCUT SCH (08:31)
[2016-06-12] MEDS: Diltiazem 240 MG Cap.ER PO SCH (08:32)
[2016-06-12] MEDS: Bumetanide 1 MG Tab PO SCH (08:32)
[2016-06-12] MEDS: Potassium Chloride 10 MEQ Tab.ER PO SCH (08:32)
[2016-06-12] MEDS: Tamsulosin 0.4 MG Cap.ER PO SCH (08:33)
[2016-06-12] MEDS: DIPHENHYDRAMINE PO SCH (08:34)
[2016-06-12] MEDS: Digoxin 125 MCG Tab PO SCH (08:34)
[2016-06-12] MEDS: Finasteride 5 MG Tab PO SCH (08:34)
[2016-06-12] MEDS: Multivitamins,Therapeutic Tab PO SCH (08:34)
[2016-06-12] MEDS: NYSTATIN PO SCH (08:34)
[2016-06-12] MEDS: LIDOCAINE PO SCH (08:34)
[2016-06-12] MEDS: Mupirocin Oint 22 GM Tube TOP SCH (08:34)
[2016-06-12] MEDS: Gabapentin 300 MG Cap PO SCH (08:34)
[2016-06-12] MEDS: Metoprolol Tartrate 50 MG Tab PO SCH (08:35)
[2016-06-12] MEDS: IMATINIB PO SCH (08:35)
--- NOTE | 2016-06-12 10:41 | PCM.DCSUM1 ---
Discharge Summary - Hospital Course Brief History: This is a an 80 elderly white male with past medical hx/o Chronic Atrial Fibrillation on Warfarin, HF with Preserved EF 55% and Grade 2 Diastolic Dysfunction 05/17/2015, HTN, HLD, Pulmonary Hypertension, NORMA on CPA, GERD, DM2, Peripheral Neuropathy, Urinary Retention, ED and Obesity who comes in with complaints of fever and AMS. - Discharge Data Discharge Date: 06/12/16 Discharge Disposition: Home, Self-Care 01 Condition: Good - Discharge Diagnosis/Problem(s) (1) Altered mental status, unspecified SNOMED Code(s): 602909468 ICD Code: R41.82 - ALTERED MENTAL STATUS, UNSPECIFIED Status: Resolved Qualifiers: Altered mental status type: disorientation Qualified Code(s): R41.0 - Disorientation, unspecified (2) Fever of unknown origin (FUO) SNOMED Code(s): 2145570 ICD Code: R50.9 - FEVER, UNSPECIFIED Status: Resolved (3) Hypokalemia SNOMED Code(s): 20963694 ICD Code: E87.6 - HYPOKALEMIA Status: Resolved (4) Leukocytosis SNOMED Code(s): 602425334, 520682865 ICD Code: D72.829 - ELEVATED WHITE BLOOD CELL COUNT, UNSPECIFIED Status: Chronic Problem Details: 2/2 CML/CLL (5) CML (chronic myelocytic leukemia) SNOMED Code(s): 93211422 ICD Code: C92.10 - CHRONIC MYELOID LEUK, BCR/ABL-POSITIVE, NOT ACHIEVE REMIS Status: Chronic (6) CLL (chronic lymphocytic leukemia) SNOMED Code(s): 12371450 ICD Code: C91.10 - CHRONIC LYMPHOCYTIC LEUK OF B-CELL TYPE NOT ACHIEVE REMIS Status: Chronic (7) Anemia SNOMED Code(s): 664901723 ICD Code: D64.9 - ANEMIA, UNSPECIFIED Status: Chronic Priority: Medium Qualifiers: Anemia type: other cause Other causes of anemia: antineoplastic chemotherapy Qualified Code(s): D64.81 - Anemia due to antineoplastic chemotherapy (8) Subtherapeutic international normalized ratio (INR) SNOMED Code(s): 458885232 ICD Code: R79.1 - ABNORMAL COAGULATION PROFILE Status: Acute (9) Respiratory distress SNOMED Code(s): 374736613 ICD Code: R06.00 - DYSPNEA, UNSPECIFIED Status: Suspected (10) At high risk for aspiration SNOMED Code(s): 025824567 ICD Code: Z91.89 - OTH PERSONAL RISK FACTORS, NOT ELSEWHERE CLASSIFIED Status: Acute - Patient Summary/Data Operative Procedure(s) Performed: None Complications: None Consults: Consultations 06/06/16 19:19 Consult to Case Management [CONS] Routine Consult to Data Modeling Architect [CONS] Routine OT Evaluation and Treatment [CONS] Routine PT Evaluation and Treatment [CONS] Routine Respiratory Care Assess and Treatment [CONS] Routine 06/09/16 11:51 Consult to Speech Language Pathology [[employer] Evaluation and Treatment] [CONS] Routine Hospital Course: Patient was primarily admitted for AMS and Fever. 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 All his diagnostic work up shows no definitive findings that can be directly attributed to his febrile illness. However he has found to be anemic with a Hgb level 8, 1-2 points below his baseline of 9-10 grams. He did however improve with 2 units of blood transfusion along with routine supportive care. His hospital course was mildly complicated by choking sensation leading to respiratory distress. But with quick action and care, the patient slowly improved clinically. Patient has done fairly well but still weak requiring further help on his own. Patient is now ready for discharge. He will be released with [facility] with PT/OT and [employer]. He was advised to have a repeat labs on Tuesday and to follow up with his PCP as scheduled. During this admission, our IDT recommended NH placement but his family opted for him to go back to [place]. - Patient Instructions Diet: Usual Diet as Tolerated Diet, Other: Regular Thin w/o straws Activity: As Tolerated Driving: Do Not Drive Showering/Bathing: May Shower Notify Provider of: Fever, Increased Pain, Nausea and/or Vomiting Other/Special Instructions: - Please take all medications as directed. - Repeat lab for CBC, BMP and Mg on Tuesday. - Skilled Home Health Services with Nursing and PT/OT/[employer]BER. - Follow up with your doctor as scheduled - Discharge Plan Home Medications: Home Meds Acetaminophen [Tylenol] 650 mg PO Q4H PRN 04/02/14 [History] Donepezil [Aricept] 10 mg PO BEDTIME 04/02/14 [History] Fesoterodine Fumarate [Toviaz] 4 mg PO DAILY 04/02/14 [History] Finasteride 5 mg PO DAILY 04/02/14 [History] Gabapentin [Neurontin] 300 mg PO DAILY 04/02/14 [History] Imatinib [Gleevec] 600 mg PO DAILY 04/02/14 [History] Mag Hydrox/Al Hydrox/Simeth [Mag-Al Plus XS] 30 ml PO Q4H PRN 04/02/14 [History] Meclizine [Antivert] 25 mg PO TID PRN 04/02/14 [History] Melatonin 3 mg PO BEDTIME 04/02/14 [History] Metoprolol Tartrate 50 mg PO BID 04/02/14 [History] Nystatin/Triamcinolone Crm [Mycolog Crm] 30 gm TOP BID PRN 04/02/14 [History] Omeprazole 20 mg PO DAILY 04/02/14 [History] Sennosides/Docusate Sodium [Senna S Tablet] 2 tab PO DAILY PRN 04/02/14 [History ] Tadalafil [Cialis] 20 mg PO DAILY PRN 04/02/14 [History] Tamsulosin [Flomax] 0.4 mg PO DAILY 04/02/14 [History] Warfarin [Coumadin] 2.5 mg PO WE 04/02/14 [History] atorvaSTATin [Lipitor] 10 mg PO BEDTIME 04/02/14 [History] sitaGLIPtin Phosphate [Januvia] 50 mg PO DAILY 04/02/14 [History] Warfarin [Coumadin] 5 mg PO SUMOTUTHFRSA 10/06/14 [History] Acetaminophen 650 mg PO BEDTIME 03/15/16 [History] Gabapentin [Neurontin] 300 mg PO BEDTIME 03/15/16 [History] Loperamide HCl [Anti-Diarrheal] 2 mg PO DAILY PRN 03/15/16 [History] Multivitamin [Multivitamins] 1 each PO DAILY 03/15/16 [History] Potassium Chloride [Klor-Con M20] 30 meq PO DAILY 03/16/16 [History] Sildenafil [Viagra] 1 tab PO DAILY PRN 03/23/16 [History] Bumetanide 4 mg PO DAILY 06/06/16 [History] Bumetanide [Bumex] 0.5 mg PO DAILY PRN MDD prn 06/06/16 [History] Digoxin [Lanoxin] 125 mcg PO DAILY 06/06/16 [History] Diltiazem [Cardizem CD] 240 mg PO DAILY 06/06/16 [History] Diphenhyd/Lidocaine/Nystatin [Magic Mouthwash] 15 ml PO TID 06/06/16 [History] Insulin Glarg,Human.Rec.Analog [Lantus] 10 units SUBCUT ASDIRECTED 06/06/16 [ History] Metoprolol Tartrate [Lopressor] 25 mg PO DAILY PRN 06/06/16 [History] Mupirocin Cream [Bactroban Crm] 1 applic TOP BID 06/06/16 [History] Nystatin [Mycostatin] 5 ml PO QID PRN 06/06/16 [History] Patient Handouts: Blood Transfusion, [id number], Anemia, Nonspecific, Aspiration Precautions, Weakness, [id number], Acute Bronchitis, [id number], Heart Failure, [id number] Referrals: Katelyn Edwards MD [Primary Care Provider] - - Discharge Summary/Plan Comment DC Time >30 min.: Yes Discharge Summary/Plan Comment: Discharge to [place] Face to face: Due to listed medical diagnosis, patient is in need of Skilled Home Health Services for nursing, occupational therapy, physical therapy and speech language pathology. Patient is home-bound due to weakness, mild form poor oral control, and memory impairment. He is a walker dependent and will benefit from services to increase level of independence. Patient will be followed up by Dr. Edwards, his PCP. - General Info Date of Service: 06/12/16 Admission Dx/Problem (Free Text: Admission Diagnosis/Problem Admission Diagnosis/Problem Fever of unknown origin Subjective Update: Follow Up Functional Status: Reports: pain controlled, tolerating diet, ambulating, urinating. Denies: new symptoms - Review of Systems HEENT: Reports: no symptoms Pulmonary: Denies: no symptoms Cardiovascular: Denies: Chest Pain Gastrointestinal: Denies: Abdominal pain, Nausea, Vomiting Genitourinary: Reports: no symptoms Musculoskeletal: Reports: no symptoms Skin: Denies: cyanosis, rash Neurological: Denies: Dizziness, Difficulty Walking, Gait Disturbance Psychiatric: Denies: depression, anxiety, hallucinations Systems Review Comment: No overnight or acute issues. He is alert, awake, smiling and comfortable. He has no new complaints. - Patient Data Vitals - Most Recent: Last Vital Signs Temp 36.5 C 06/12/16 08:36 Pulse 93 06/12/16 08:35 Resp 18 06/12/16 08:36 BP 118/49 L 06/12/16 08:36 Pulse Ox 95 06/12/16 08:36 Weight - Most Recent: 92.215 kg I&O - Last 24 hours: Intake & Output 06/11/16 06/12/16 06/12/16 22:59 06:59 14:59 Intake Total 480 400 Output Total 1600 1000 Balance -1120 -600 Lab Results - Last 24 hrs: Laboratory Results - last 24 hr 06/11/16 06/11/16 06/11/16 Range/Units 11:08 17:03 22:14 PT (8.0-13.0) SECONDS INR POC Glucose 181 H 147 H 135 H (83-110) mg/dL 06/12/16 06/12/16 Range/Units 05:37 06:35 PT 20.1 H (8.0-13.0) SECONDS INR 1.78 POC Glucose 115 H (83-110) mg/dL Med Orders - Current: Current Medications Acetaminophen (Tylenol) 650 mg PO Q4H PRN PRN Reason: Pain (Mild 1-3)/fever Last Admin: 06/11/16 22:12 Dose: 650 mg Acetaminophen/Hydrocodone Bitart ([place] 325-5 Mg) 1 tab PO Q4H PRN PRN Reason: Pain (moderate 4-6) Last Admin: 06/08/16 02:21 Dose: 1 tab Al Hydroxide/Mg Hydroxide (Mag-Al Plus) 30 ml PO Q4H PRN PRN Reason: Indigestion Bisacodyl (Dulcolax) 5 mg PO DAILY PRN PRN Reason: Constipation Bumetanide (Bumex) 4 mg PO DAILY [facility] Last Admin: 06/12/16 08:32 Dose: 4 mg Bumetanide (Bumex) 0.5 mg PO DAILY PRN PRN Reason: chf Dextrose/Water (Dextrose 50% In Water) 50 ml IVPUSH ASDIRECTED PRN PRN Reason: Hypoglycemia Digoxin (Lanoxin) 125 mcg PO DAILY [facility] Last Admin: 06/12/16 08:34 Dose: 125 mcg Diltiazem HCl (Dilacor Xr) 240 mg PO DAILY [facility] Last Admin: 06/12/16 08:32 Dose: 240 mg Donepezil HCl (Aricept) 10 mg PO BEDTIME [facility] Last Admin: 06/11/16 22:03 Dose: 10 mg Enoxaparin Sodium (Lovenox) 40 mg SUBCUT DAILY [facility] Last Admin: 06/12/16 08:31 Dose: 40 mg Finasteride (Proscar) 5 mg PO DAILY [facility] Last Admin: 06/12/16 08:34 Dose: 5 mg Gabapentin (Neurontin) 300 mg PO BEDTIME [facility] Last Admin: 06/11/16 22:10 Dose: 300 mg Gabapentin (Neurontin) 300 mg PO DAILY [facility] Last Admin: 06/12/16 08:34 Dose: 300 mg Hydromorphone HCl (Dilaudid) 0.25 mg IVPUSH Q2H PRN PRN Reason: Pain (severe 7-10) Promethazine HCl 12.5 mg/ (Sodium Chloride) 50.5 mls @ 100 mls/hr IV Q6H PRN PRN Reason: Nausea/Vomiting Insulin Aspart (Novolog) 0 unit SUBCUT QIDACANDBED [facility] PRN Reason: Protocol Last Admin: 06/12/16 06:41 Dose: Not Given Loperamide HCl (Imodium) 2 mg PO DAILY PRN PRN Reason: Diarrhea Lorazepam (Ativan) 0.5 mg IV Q6H PRN PRN Reason: Anxiety Last Admin: 06/09/16 22:57 Dose: 0.5 mg Magnesium Sulfate (Pharmacy To Dose - Magnesium Replacement) 1 dose .XX ASDIRECTED [facility] Meclizine HCl (Antivert) 25 mg PO TID PRN PRN Reason: Dizziness Metoprolol Tartrate (Lopressor) 50 mg PO BID [facility] Last Admin: 06/12/16 08:35 Dose: 50 mg Metoprolol Tartrate (Lopressor) 5 mg IVPUSH Q4H PRN PRN Reason: Tachycardia Last Admin: 06/08/16 03:04 Dose: 5 mg Multivitamins (Thera) 1 each PO DAILY [facility] Last Admin: 06/12/16 08:34 Dose: 1 each Mupirocin (Bactroban Oint) 0 gm TOP BID [facility] Last Admin: 06/12/16 08:34 Dose: Not Given Nystatin (Mycostatin) 5 ml PO QID PRN PRN Reason: Pain Nystatin/Triamcinolone Acetonide (Mycolog Crm) 0 gm TOP BID PRN PRN Reason: RASH Ondansetron HCl (Zofran) 4 mg IV Q6H PRN PRN Reason: Nausea/Vomiting Pantoprazole Sodium (Protonix) 40 mg PO DAILY@0700 [facility] Last Admin: 06/12/16 06:40 Dose: 40 mg Diphenhyd/Lidocaine/ (Nystatin 15 Ml) 0 each PO TID [facility] Last Admin: 06/12/16 08:34 Dose: Not Given Imatinib [Gleevec] (600 Mg) 0 each PO DAILY [facility] Last Admin: 06/12/16 08:35 Dose: 1 each Melatonin 3 Mg 0 each PO BEDTIME [facility] Last Admin: 06/11/16 22:07 Dose: Not Given Polyethylene Glycol (Miralax) 17 gm PO DAILY PRN PRN Reason: Constipation Potassium Chloride (Klor-Con 10) 30 meq PO DAILY [facility] Last Admin: 06/12/16 08:32 Dose: 30 meq Potassium Chloride (Pharmacy To Dose - Potassium Replacement) 1 dose .XX ASDIRECTED [facility] Senna/Docusate Sodium (Senna Plus) 2 tab PO DAILY PRN PRN Reason: Constipation Simvastatin (Zocor) 10 mg PO BEDTIME [facility] Last Admin: 06/11/16 22:06 Dose: 10 mg Sitagliptin Phosphate (Januvia) 50 mg PO DAILY [facility] Last Admin: 06/12/16 08:32 Dose: 50 mg Sodium Chloride (Saline Flush) 10 ml FLUSH ASDIRECTED PRN PRN Reason: Keep Vein Open Tamsulosin HCl (Flomax) 0.4 mg PO DAILY [facility] Last Admin: 06/12/16 08:33 Dose: 0.4 mg Temazepam (Restoril) 15 mg PO BEDTIME PRN PRN Reason: Sleep Last Admin: 06/10/16 22:07 Dose: 15 mg Trospium (Sanctura) 20 mg PO BIDAC [facility] Last Admin: 06/12/16 06:40 Dose: 20 mg Warfarin Sodium (Pharmacy To Dose - Warfarin) 1 dose .XX ASDIRECTED [facility] Discontinued Medications Acetaminophen (Tylenol) 650 mg PO NOW ONE Stop: 06/06/16 17:31 Last Admin: 06/06/16 17:42 Dose: 650 mg Albuterol (Proventil Neb Soln) Confirm Administered Dose 2.5 mg .ROUTE .STK-MED ONE Stop: 06/09/16 08:34 Last Admin: 06/09/16 08:44 Dose: 2.5 mg Bumetanide (Bumex) 1 mg IVPUSH ONETIME ONE Stop: 06/09/16 10:57 Last Admin: 06/09/16 15:37 Dose: 1 mg Enoxaparin Sodium (Lovenox) 30 mg SUBCUT DAILY [facility] Last Admin: 06/10/16 08:45 Dose: 30 mg Furosemide (Lasix) 40 mg IVPUSH NOW ONE Stop: 06/06/16 18:55 Last Admin: 06/06/16 19:22 Dose: 40 mg Hydromorphone HCl (Dilaudid) 0.25 mg IVPUSH Q2H PRN PRN Reason: Pain (severe 7-10) Last Admin: 06/07/16 01:15 Dose: 0.25 mg Sodium Chloride (Normal Saline) 1,000 mls @ 100 mls/hr IV ASDIRECTED [facility] Last Admin: 06/08/16 02:32 Dose: 100 mls/hr Piperacillin Sod/Tazobactam (Sod 3.375 gm/ Sodium Chloride) 100 mls @ 25 mls/ hr IV Q6H [facility] Last Admin: 06/06/16 23:11 Dose: 25 mls/hr Levofloxacin/Dextrose 750 mg/ (Premix) 150 mls @ 100 mls/hr IV ONETIME ONE Stop: 06/06/16 20:26 Last Admin: 06/06/16 19:29 Dose: 100 mls/hr Potassium Chloride 10 meq/ (Premix) 100 mls @ 100 mls/hr IV ASDIRECTED [facility] Levofloxacin/Dextrose 500 mg/ (Premix) 100 mls @ 100 mls/hr IV Q24H [facility] Last Admin: 06/10/16 18:34 Dose: 100 mls/hr Vancomycin HCl 1 gm/Vancomycin HCl 500 mg/ Sodium Chloride 500 mls @ 125 mls/ hr IV Q24H [facility] Last Admin: 06/06/16 23:14 Dose: Not Given Magnesium Sulfate 2 gm/ Premix 50 mls @ 50 mls/hr IV ONETIME ONE Stop: 06/06/16 21:59 Last Admin: 06/07/16 00:51 Dose: 50 mls/hr Sodium Chloride (Normal Saline) Confirm Administered Dose 250 mls @ as directed .ROUTE .STK-MED ONE Stop: 06/06/16 20:58 Last Admin: 06/06/16 21:18 Dose: 100 ml Vancomycin HCl 1 gm/Vancomycin HCl 500 mg/ Sodium Chloride 500 mls @ 333 mls/ hr IV Q24H [facility] Last Admin: 06/09/16 21:38 Dose: 333 mls/hr Piperacillin Sod/Tazobactam (Sod 4.5 gm/ Sodium Chloride) 100 mls @ 25 mls/hr IV Q8H [facility] Last Admin: 06/07/16 08:40 Dose: 25 mls/hr Magnesium Sulfate (Magnesium Sulfate 2 Gm In Water 50 Ml) Confirm Administered Dose 50 mls @ as directed .ROUTE .STK-MED ONE Stop: 06/07/16 00:43 Last Admin: 06/07/16 00:51 Dose: Not Given Magnesium Sulfate 2 gm/ Premix 50 mls @ 25 mls/hr IV ONETIME ONE Stop: 06/07/16 13:59 Last Admin: 06/07/16 12:56 Dose: 25 mls/hr Potassium Chloride 10 meq/ (Premix) 100 mls @ 100 mls/hr IV Q1H [facility] Stop: 06/08/16 15:59 Last Admin: 06/08/16 17:13 Dose: 100 mls/hr Potassium Chloride 10 meq/ (Premix) 100 mls @ 100 mls/hr IV Q1H [facility] Stop: 06/09/16 17:59 Last Admin: 06/09/16 18:44 Dose: 100 mls/hr Vancomycin HCl 1 gm/Vancomycin HCl 500 mg/ Sodium Chloride 500 mls @ 333 mls/ hr IV Q12H [facility] Last Admin: 06/11/16 09:25 Dose: 333 mls/hr Metoprolol Tartrate (Lopressor) 25 mg PO DAILY PRN PRN Reason: Other Metoprolol Tartrate (Lopressor) Confirm Administered Dose 5 mg .ROUTE .STK-MED ONE Stop: 06/07/16 19:18 Last Admin: 06/07/16 20:10 Dose: Not Given Non-Formulary Medication (Insulin Glarg,Human.Rec.Analog) 10 units SUBCUT ASDIRECTED [facility] Potassium Chloride (Klor-Con M20) 20 meq PO Q3H [facility] Stop: 06/07/16 00:01 Last Admin: 06/07/16 00:51 Dose: 20 meq Potassium Chloride (Klor-Con M20) 60 meq PO ONETIME ONE Stop: 06/08/16 19:01 Last Admin: 06/08/16 20:09 Dose: 60 meq Potassium Chloride (Klor-Con M20) 20 meq PO Q3H [facility] Stop: 06/09/16 15:01 Last Admin: 06/09/16 15:40 Dose: Not Given Potassium Chloride (Klor-Con M20) 20 meq PO Q3H [facility] Stop: 06/10/16 18:01 Last Admin: 06/10/16 17:43 Dose: 20 meq Potassium Chloride (Klor-Con M20) 40 meq PO ONETIME ONE Stop: 06/11/16 08:46 Last Admin: 06/11/16 09:25 Dose: 40 meq Senna/Docusate Sodium (Senna Plus) 1 tab PO BID PRN PRN Reason: Constipation Vancomycin HCl (Pharmacy To Dose - Vancomycin) 1 dose .XX ASDIRECTED [facility] Warfarin Sodium (Coumadin) 5 mg PO ONETIME@1800 ONE Stop: 06/07/16 18:01 Last Admin: 06/07/16 18:04 Dose: 5 mg Warfarin Sodium (Coumadin) 5 mg PO ONETIME@1800 ONE Stop: 06/08/16 18:01 Last Admin: 06/08/16 17:13 Dose: 5 mg Warfarin Sodium (Coumadin) 5 mg PO ONETIME@1800 ONE Stop: 06/09/16 18:01 Last Admin: 06/09/16 17:27 Dose: 5 mg Warfarin Sodium (Coumadin) 7.5 mg PO ONETIME@1800 ONE Stop: 06/10/16 18:01 Last Admin: 06/10/16 17:41 Dose: 7.5 mg Warfarin Sodium (Coumadin) 7.5 mg PO ONETIME ONE Stop: 06/11/16 18:01 Last Admin: 06/11/16 17:06 Dose: 7.5 mg - Exam General: Reports: alert, cooperative, no acute distress HEENT: Reports: Pupils equal, Pupils reactive, EOMI, Mucous membr. moist/pink Neck: Reports: supple, trachea midline, no JVD, no thyromegaly, other (short and thick) Lungs: Reports: Normal respiratory effort, Decreased breath sounds Cardiovascular: Reports: Irregular Rhythm, Other (irregular rate) Abdomen: Reports: bowel sounds present, soft, no tenderness, no distension, other (Obese) (Male) Exam: Deferred Rectal (Males) Exam: Deferred Back Exam: Reports: normal inspection, decreased range of motion Extremities: Reports: no edema, normal pulses, no tenderness/swelling, no clubbing, no cyanosis, no calf tenderness Skin: Reports: warm, dry, intact Neurological: Reports: no new focal deficit Psy/Mental Status: Reports: alert, normal affect, normal mood *Q Meaningful Use (DIS) - VTE *Q VTE Criteria *Q: - Stroke *Q Stroke Criteria *Q: - AMI *Q AMI Criteria *Q:
[2016-06-12 13:09] VITALS: BP 105/59
[2016-06-12] MEDS ORDERED: Warfarin 5 MG Tab PO ONE (18:00)
== END 2016-06-12 12:50 | disposition home or self-care (01) | DRG 864 ==
LOC: EDBD → SUPCPDRO 17:17 → JD.ED 17:17 → EDBD 17:17 → UNDOADMIN 19:11 → EDBD 19:11 → JD.MS 19:11
PROVIDERS: ADMIT Emergency Medicine; ATTEND Internal Medicine
PROC: 30233N1 Transfusion of Nonautologous Red Blood Cells into Peripheral Vein, Percutaneous Approach (ICD-10-PCS; principal; 2016-06-07)
DX: R50.9 Fever, unspecified (principal); I50.30 Unspecified diastolic (congestive) heart failure; C91.10 Chronic lymphocytic leukemia of B-cell type not having achieved remission; C92.10 Chronic myeloid leukemia, BCR/ABL-positive, not having achieved remission; R41.82 Altered mental status, unspecified; I48.91 Unspecified atrial fibrillation; E87.6 Hypokalemia; D64.9 Anemia, unspecified; I48.2 Chronic atrial fibrillation; I11.0 Hypertensive heart disease with heart failure; I27.2 Other secondary pulmonary hypertension; E78.5 Hyperlipidemia, unspecified; G47.33 Obstructive sleep apnea (adult) (pediatric); F41.9 Anxiety disorder, unspecified; E11.9 Type 2 diabetes mellitus without complications; K21.9 Gastro-esophageal reflux disease without esophagitis; E11.42 Type 2 diabetes mellitus with diabetic polyneuropathy; Z79.4 Long term (current) use of insulin; N40.0 Benign prostatic hyperplasia without lower urinary tract symptoms; R33.9 Retention of urine, unspecified; N52.9 Male erectile dysfunction, unspecified; E66.9 Obesity, unspecified; Z79.01 Long term (current) use of anticoagulants; Z79.899 Other long term (current) drug therapy; E78.00 Pure hypercholesterolemia, unspecified; R32 Unspecified urinary incontinence; Z96.659 Presence of unspecified artificial knee joint; W19.XXXA Unspecified fall, initial encounter; R41.3 Other amnesia; R79.1 Abnormal coagulation profile; R79.89 Other specified abnormal findings of blood chemistry; R06.00 Dyspnea, unspecified; D72.829 Elevated white blood cell count, unspecified; Z91.89 Other specified personal risk factors, not elsewhere classified
CPT/HCPCS: 36415; 70450; 71010; 80053; 80162; 81001; 82962; 83735; 83880; 84484; 85025; 86140; 86850; 86900; 86901; 86922; 87040 ×2; 87086; 87804 ×2; 93005; 96361; 99285; A9270; J7040; 36430; 71020; 71020-26; 80048; 80202; 82553; 85610; 92526-GN; 92610-GN; 94664; 94760; 94761; 94762; 96360; 96365; 96375; 97110-GP; 97116-GP; 97161-GP; 97165-GO; 97530-GO; 97530-GP; 99222; 99232; J1170; J1650; J1815-GY; J1940; J1956; J2060; J2543; J3370; J3475; J3480; J3490; J7030; J7050; P9016

== ENCOUNTER 2016-08-29 16:22 | Inpatient (IN) | payer MEDICARE, OTHER ==
[2016-08-29] MEDS ORDERED: Sodium Chloride 0.9% 10 ML Syringe FLUSH PRN (16:59)
[2016-08-29] MEDS ORDERED: Ondansetron 4 MG/2 ML SDV IVPUSH ONE (17:08)
[2016-08-29] MEDS ORDERED: Sodium Chloride 0.9% 500 ML IV ONE (17:08)
--- NOTE | 2016-08-29 17:49 | EDM.PDOC ---
ED HPI GENERAL MEDICAL PROBLEM - General Chief Complaint: General Stated Complaint: WEAKNESS Time Seen by Provider: 08/29/16 16:58 Source of Information: Reports: Patient, Family, Old Records, RN Notes Reviewed - History of Present Illness INITIAL COMMENTS - FREE TEXT/NARRATIVE: 80-year-old male presents to the ED with generalized weakness, dizziness, low energy has been worsening over the past several days. He does have dementia so not able to give a real precise history. Much of the information I have is coming from family. He does have history of insulin-dependent diabetes, coronary artery disease, chronic atrophic fibrillation, congestive heart failure , CML and CLL and anemia associated with those problems. He has had intermittent blood transfusions in the past when his blood gets too low. Family states that his white blood count was not responding well to the latest treatment given so therefore at this time he is not under any current treatment for his lymphoma or leukemia. Left Knee Pain Score (Numeric/FACES): 8 - Related Data Allergies Allergy/AdvReac Type Severity Reaction Status Date / Time No Known Allergies Allergy Verified 08/29/16 16:40 Home Meds: Home Meds Acetaminophen [Tylenol] 650 mg PO Q4H PRN 04/02/14 [History] Donepezil [Aricept] 10 mg PO BEDTIME 04/02/14 [History] Fesoterodine Fumarate [Toviaz] 4 mg PO DAILY 04/02/14 [History] Finasteride 5 mg PO DAILY 04/02/14 [History] Imatinib [Gleevec] 600 mg PO DAILY 04/02/14 [History] Mag Hydrox/Al Hydrox/Simeth [Mag-Al Plus XS] 30 ml PO Q4H PRN 04/02/14 [History] Meclizine [Antivert] 25 mg PO TID PRN 04/02/14 [History] Melatonin 3 mg PO BEDTIME 04/02/14 [History] Nystatin/Triamcinolone Crm [Mycolog Crm] 30 gm TOP BID PRN 04/02/14 [History] Sennosides/Docusate Sodium [Senna S Tablet] 2 tab PO DAILY PRN 04/02/14 [History ] Tadalafil [Cialis] 20 mg PO DAILY PRN 04/02/14 [History] Tamsulosin [Flomax] 0.4 mg PO DAILY 04/02/14 [History] atorvaSTATin [Lipitor] 10 mg PO BEDTIME 04/02/14 [History] sitaGLIPtin Phosphate [Januvia] 50 mg PO DAILY 04/02/14 [History] Warfarin [Coumadin] 7.5 mg PO DAILY 10/06/14 [History] Acetaminophen 650 mg PO BEDTIME 03/15/16 [History] Gabapentin [Neurontin] 300 mg PO BEDTIME 03/15/16 [History] Loperamide HCl [Anti-Diarrheal] 2 mg PO DAILY PRN 03/15/16 [History] Multivitamin [Multivitamins] 1 each PO DAILY 03/15/16 [History] Potassium Chloride [Klor-Con M20] 30 meq PO DAILY 03/16/16 [History] Sildenafil [Viagra] 1 tab PO DAILY PRN 03/23/16 [History] Bumetanide 2 mg PO DAILY 06/06/16 [History] Bumetanide [Bumex] 2 mg PO BID PRN MDD prn 06/06/16 [History] Digoxin [Lanoxin] 125 mcg PO ASDIRECTED 06/06/16 [History] Diltiazem [Cardizem CD] 240 mg PO DAILY 06/06/16 [History] Diphenhyd/Lidocaine/Nystatin [Magic Mouthwash] 15 ml PO TID 06/06/16 [History] Metoprolol Tartrate [Lopressor] 50 mg PO DAILY PRN 06/06/16 [History] Mupirocin Cream [Bactroban Crm] 1 applic TOP BID 06/06/16 [History] Nystatin [Mycostatin] 5 ml PO QID PRN 06/06/16 [History] Magnesium Amino Acid Chelate [Magnesium] 64 mg PO DAILY 08/29/16 [History] Metoprolol Tartrate [Lopressor] 25 mg PO ASDIRECTED PRN 08/29/16 [History] Pantoprazole Sodium [Protonix] 40 mg PO DAILY 08/29/16 [History] Potassium 20 meq PO TID 08/29/16 [History] Past Medical History HEENT History: Reports: None, Impaired Vision Other HEENT History: eyeglasses Cardiovascular History: Reports: Afib, Heart Failure, High Cholesterol, Hypertension, Pulmonary Hypertension Respiratory History: Reports: Sleep Apnea Other Respiratory History: uses a c-pap Gastrointestinal History: Reports: GERD Genitourinary History: Reports: BPH, Renal Calculus Other Genitourinary History: pt is incontinent. wears biefs Musculoskeletal History: Reports: Arthritis Psychiatric History: Reports: Anxiety Endocrine/Metabolic History: Reports: Diabetes, Type II Hematologic History: Reports: Anemia Other Hematologic History: CLL: leukemia hx Oncologic (Cancer) History: Reports: Leukemia Other Oncologic History: CLL: leukemia recent diagnosis of exacerbation of his CLL. pt has had one round of chemo but did not tolerate well. Dermatologic History: Reports: Melanoma - Infectious Disease History Infectious Disease History: Reports: C-Difficile, Shingles - Past Surgical History Head Surgeries/Procedures: Reports: None HEENT Surgical History: Reports: None Cardiovascular Surgical History: Reports: None GI Surgical History: Reports: Appendectomy, Colonoscopy Musculoskeletal Surgical History: Reports: Knee Replacement Dermatological Surgical History: Reports: Skin Biopsy Social & Family History - Family History Family Medical History: Noncontributory - Tobacco Use Smoking Status *Q: Never Smoker Second Hand Smoke Exposure: No - Caffeine Use Caffeine Use: Reports: Coffee Other Caffeine Use: 2 cups coffee - Alcohol Use Days Per Week of Alcohol Use: 0 Number of Drinks Per Day: 0 Total Drinks Per Week: 0 - Recreational Drug Use Recreational Drug Use: No - Living Situation & Occupation Living situation: Reports: Alone, Extended Care Facility, Other Occupation: Retired ED ROS GENERAL - Review of Systems Review Of Systems: See Below Constitutional: Reports: Weakness (Generalized), Fatigue. Denies: Fever, Chills , Diaphoresis HEENT: Denies: Sinus Problem, Throat Pain Respiratory: Reports: Shortness of Breath (Especially exertional). Denies: Cough Cardiovascular: Reports: Lightheadedness. Denies: Chest Pain GI/Abdominal: Reports: Diarrhea (Many days ago, gone). Denies: Abdominal Pain, Nausea Musculoskeletal: Denies: Neck Pain, Shoulder Pain, Arm Pain, Leg Pain Skin: Denies: Rash Neurological: Reports: Dizziness, Difficulty Walking (Due to generalized weakness), Weakness (Gen. I). Denies: Trouble Speaking ED EXAM, GENERAL - Physical Exam Exam: See Below General Appearance: Alert, No Apparent Distress Eye Exam: Bilateral Eye: PERRL Throat/Mouth: Other (Oral mucosa is dry) Head: No: Facial Swelling Neck: Supple, Other (No JVD) Respiratory/Chest: No Respiratory Distress, Rales (Mild bilateral bases). No: Rhonchi, Wheezing Cardiovascular: Regular Rate, Rhythm, Systolic Murmur GI/Abdominal: Soft, Tender (Mild tenderness upper mid abdomen) Back Exam: No: CVA Tenderness (L), CVA Tenderness (R) Extremities: No: Pedal Edema, Leg Pain Neurological: Alert, No Motor/Sensory Deficits Skin Exam: Warm, Dry, Pallor EKG INTERPRETATION EKG Date: 08/29/16 Rhythm: a-fib Rate (beats/min): 46 [place]: normal QRS: LBBB Course - Vital Signs Last Recorded V/S: Last Vital Signs Temp 97.7 F 08/29/16 16:40 Pulse 50 L 08/29/16 16:40 Resp 14 08/29/16 16:40 BP 122/55 L 08/29/16 16:40 Pulse Ox 95 08/29/16 16:40 - Orders/Labs/Meds Orders: Active Orders 24 hr Category Date Time Status EKG 12 Lead [EKG Documentation Completion] [RC] STAT Care 08/29/16 17:00 Active Peripheral IV Care [RC] . DIRECTED Care 08/29/16 17:00 Active Chest 1V Frontal [CR] Stat Exams 08/29/16 17:50 Taken Knee Min 4V Lt [CR] Stat Exams 08/29/16 17:09 Taken Sodium Chloride 0.9% [Saline Flush] Med 08/29/16 16:59 Active 10 ml FLUSH ASDIRECTED PRN Peripheral IV Insertion Adult [OM.PC] Stat Oth 08/29/16 17:00 Ordered Medication Orders Sodium Chloride (Saline Flush) 10 ml FLUSH ASDIRECTED PRN PRN Reason: Keep Vein Open Last Admin: 08/29/16 17:23 Dose: 10 ml Labs: Laboratory Tests 08/29/16 08/29/16 08/29/16 Range/Units 17:05 17:05 17:05 WBC 50.03 H (4.23-9.07) K/mm3 RBC 2.58 L (4.63-6.08) M/mm3 Hgb 8.4 L (13.7-17.5) gm/L Hct 27.0 L (40.1-51.0) % MCV 104.7 H (79.0-92.2) fl MCH 32.6 H (25.7-32.2) pg MCHC 31.1 L (32.2-35.5) g/dl RDW Std Deviation 73.1 H (35.1-43.9) fL Plt Count 120 L (163-337) K/mm3 MPV 9.5 (9.4-12.3) fl Neutrophils % (Manual) 7 L (40-60) % Band Neutrophils % 0 (0-10) % Lymphocytes % (Manual) 93 H (20-40) % Atypical Lymphs % 0 % Monocytes % (Manual) 0 L (2-10) % Eosinophils % (Manual) 0 L (0.8-7.0) % Basophils % (Manual) 0 L (0.2-1.2) Toxic Granulation 1+ slight Platelet Estimate Decreased Plt Morphology Comment See note Polychromasia 1+ slight Hypochromasia 1+ slight Poikilocytosis 2+ moderate Anisocytosis 1+ slight Microcytosis 1+ slight Macrocytosis 1+ slight Tear Drop Cells 1+ slight Stomatocytes 1+ slight Schistocytes 1+ slight RBC Morph Comment Abnormal PT (8.0-13.0) SECONDS INR Sodium 141 (136-145) mEq/L Potassium 3.7 (3.5-5.1) mEq/L Chloride 103 (98-107) mEq/L Carbon Dioxide 27 (21-32) mEq/L Anion Gap 14.7 (5-15) BUN 19 H (7-18) mg/dL Creatinine 1.7 H (0.7-1.3) mg/dL Est Cr Clr Drug Dosing 33.53 mL/min Estimated GFR (MDRD) 39 (>60) mL/min BUN/Creatinine Ratio 11.2 L (14-18) Glucose 171 H (83-115) mg/dL Calcium 8.1 L (8.5-10.1) mg/dL Total Bilirubin 0.5 (0.2-1.0) mg/dL AST 24 (15-37) U/L ALT 31 (16-63) U/L Alkaline Phosphatase 72 (46-116) U/L Troponin I 0.067 H* (0.00-0.056) ng/mL B-Natriuretic Peptide 740 H (0-100) pg/mL Total Protein 6.2 L (6.4-8.2) g/dl Albumin 3.5 (3.4-5.0) g/dl Globulin 2.7 gm/dL Albumin/Globulin Ratio 1.3 (1-2) Urine Color (Yellow) Urine Appearance (Clear) Urine pH (5.0-8.0) Ur Specific [place] (1.005-1.030) Urine Protein (Negative) Urine Glucose (UA) (Negative) Urine Ketones (Negative) Urine Occult Blood (Negative) Urine Nitrite (Negative) Urine Bilirubin (Negative) Urine Urobilinogen (0.2-1.0) Ur Leukocyte Esterase (Negative) Urine RBC (0-5) /hpf Urine WBC (0-5) /hpf Ur Epithelial Cells (0-5) /hpf Calcium Oxalate Crystal (NONE) Urine Bacteria (FEW) /hpf Hyaline Casts (0-5) /lpf Urine Mucus (FEW) /hpf Digoxin (0.9-2.0) ng/mL 08/29/16 08/29/16 08/29/16 Range/Units 17:05 17:05 17:50 WBC (4.23-9.07) K/mm3 RBC (4.63-6.08) M/mm3 Hgb (13.7-17.5) gm/L Hct (40.1-51.0) % MCV (79.0-92.2) fl MCH (25.7-32.2) pg MCHC (32.2-35.5) g/dl RDW Std Deviation (35.1-43.9) fL Plt Count (163-337) K/mm3 MPV (9.4-12.3) fl Neutrophils % (Manual) (40-60) % Band Neutrophils % (0-10) % Lymphocytes % (Manual) (20-40) % Atypical Lymphs % % Monocytes % (Manual) (2-10) % Eosinophils % (Manual) (0.8-7.0) % Basophils % (Manual) (0.2-1.2) Toxic Granulation Platelet Estimate Plt Morphology Comment Polychromasia Hypochromasia Poikilocytosis Anisocytosis Microcytosis Macrocytosis Tear Drop Cells Stomatocytes Schistocytes RBC Morph Comment PT 18.6 H (8.0-13.0) SECONDS INR 1.65 Sodium (136-145) mEq/L Potassium (3.5-5.1) mEq/L Chloride (98-107) mEq/L Carbon Dioxide (21-32) mEq/L Anion Gap (5-15) BUN (7-18) mg/dL Creatinine (0.7-1.3) mg/dL Est Cr Clr Drug Dosing mL/min Estimated GFR (MDRD) (>60) mL/min BUN/Creatinine Ratio (14-18) Glucose (83-115) mg/dL Calcium (8.5-10.1) mg/dL Total Bilirubin (0.2-1.0) mg/dL AST (15-37) U/L ALT (16-63) U/L Alkaline Phosphatase (46-116) U/L Troponin I (0.00-0.056) ng/mL B-Natriuretic Peptide (0-100) pg/mL Total Protein (6.4-8.2) g/dl Albumin (3.4-5.0) g/dl Globulin gm/dL Albumin/Globulin Ratio (1-2) Urine Color Yellow (Yellow) Urine Appearance Clear (Clear) Urine pH 5.5 (5.0-8.0) Ur Specific [place] 1.020 (1.005-1.030) Urine Protein Trace H (Negative) Urine Glucose (UA) Negative (Negative) Urine Ketones Negative (Negative) Urine Occult Blood Negative (Negative) Urine Nitrite Negative (Negative) Urine Bilirubin Negative (Negative) Urine Urobilinogen 0.2 (0.2-1.0) Ur Leukocyte Esterase Negative (Negative) Urine RBC 0-5 (0-5) /hpf Urine WBC 0-5 (0-5) /hpf Ur Epithelial Cells 0-5 (0-5) /hpf Calcium Oxalate Crystal Few H (NONE) Urine Bacteria Not seen (FEW) /hpf Hyaline Casts 0-5 (0-5) /lpf Urine Mucus Few (FEW) /hpf Digoxin 0.7 L (0.9-2.0) ng/mL Meds: Medications Generic Name Dose Route Start Last Admin Trade Name Freq PRN Reason Stop Dose Admin Sodium Chloride 10 ml 08/29/16 16:59 08/29/16 17:23 Saline Flush FLUSH 10 ml ASDIRECTED PRN Administration Keep Vein Open Discontinued Medications Generic Name Dose Route Start Last Admin Trade Name Freq PRN Reason Stop Dose Admin Sodium Chloride 500 mls @ 999 mls/hr 08/29/16 17:08 08/29/16 17:20 Normal Saline IV 08/29/16 17:38 999 mls/hr .BOLUS ONE Administration Ondansetron HCl 4 mg 08/29/16 17:08 08/29/16 17:20 Zofran IVPUSH 08/29/16 17:09 4 mg ONETIME ONE Administration - Re-Assessments/Exams Free Text/Narrative Re-Assessment/Exam: 08/29/16 29:00. Labs are a documented. Chest x-ray does show mild to moderate CHF, EKG shows atrial fibrillation, heart rate 46. I did initially discuss this with Dr. Prasad our hospitalist plant protection guard for admission, stop his metoprolol and digoxin. She has advised he would be better served to go to [place] where they do have Cardiology and put in a pacemaker. I did call and discuss with Dr. Oropeza Medical Tech on-call for [facility]. She states she would be happy to accept the patient this evening. He would be admitted to the care of a hospitalist. She states the first thing they would do would be to stop the metrolpolol and digoxin and see how his heart rate responds to that. He is not hypotensive. He is not in acute distress at this moment. She feels it is appropriate to admit here, give that a try and if that works then he would not need a transfer or a pacemaker. Family is for that plan. He will be admitted inpatient ICU status. Departure - Departure Time of Disposition: 19:00 Disposition: Admitted As Inpatient 66 Condition: serious Clinical Impression: Heart block, Near syncope, CML (chronic myelocytic leukemia), CLL (chronic lymphocytic leukemia), Renal insufficiency syndrome Congestive heart failure Qualifiers: Congestive heart failure type: unspecified congestive heart failure type Congestive heart failure chronicity: chronic Qualified Code(s): I50.9 - Heart failure, unspecified Anemia Qualifiers: Anemia type: other cause Other causes of anemia: other cause, not classified Qualified Code(s): D64.89 - Other specified anemias - Discharge Information Forms: ED Department Discharge ED Communication - Discussed Case With (1) Discussed Case With (1): Admitting Provider (Osmar, decision to admit at about 19:00), Other (Dr Oropeza, Medical Tech, [facility]) - My Orders Last 24 Hours: My Active Orders 08/29/16 16:59 Sodium Chloride 0.9% [Saline Flush] 10 ml FLUSH ASDIRECTED PRN 08/29/16 17:00 EKG 12 Lead [EKG Documentation Completion] [RC] STAT Peripheral IV Care [RC] . DIRECTED Peripheral IV Insertion Adult [OM.PC] Stat 08/29/16 17:09 Knee Min 4V Lt [CR] Stat 08/29/16 17:50 Chest 1V Frontal [CR] Stat - Assessment/Plan Last 24 Hours: My Active Orders 08/29/16 16:59 Sodium Chloride 0.9% [Saline Flush] 10 ml FLUSH ASDIRECTED PRN 08/29/16 17:00 EKG 12 Lead [EKG Documentation Completion] [RC] STAT Peripheral IV Care [RC] . DIRECTED Peripheral IV Insertion Adult [OM.PC] Stat 08/29/16 17:09 Knee Min 4V Lt [CR] Stat 08/29/16 17:50 Chest 1V Frontal [CR] Stat
[2016-08-29] MEDS ORDERED: Nystatin Susp 100,000 Unit/ML 5 ML UD Cup PO PRN (20:14)
[2016-08-29] MEDS ORDERED: Bumetanide 1 MG Tab PO PRN (20:14)
[2016-08-29] MEDS ORDERED: Loperamide 2 MG Cap PO PRN (20:14)
--- NOTE | 2016-08-29 20:31 | PCM.HP ---
H&P History of Present Illness - General Date of Service: 08/29/16 Admit Problem/Dx: Admission Diagnosis/Problem Admission Diagnosis/Problem Heart block Source of Information: Family, Provider History Limitations: Reports: No Limitations - History of Present Illness Initial Comments - Free Text/Narative: 80 year old male with several days of weakness, fatigue, presyncopal; on evaluation has heart rate below 50 BPM. EKG documents complete heart block, digoxin level 0.7. Admitted to ICU, will follow hemodynamics without AV michoacano agents on board. Onset of Symptoms: Reports: Sudden Symptom Onset Date: 08/29/16 Duration of Symptoms: Reports: Hour(s):, Getting Worse Location: Reports: Generalized Severity: Moderate Improves with: Reports: None Worsens with: Reports: None Associated Symptoms: Reports: Shortness of Breath, Weakness Left Knee Pain Score (Numeric/FACES): 8 - Related Data Allergies/Adverse Reactions: Allergies Allergy/AdvReac Type Severity Reaction Status Date / Time No Known Allergies Allergy Verified 08/29/16 16:40 Home Medications: Home Meds Acetaminophen [Tylenol] 650 mg PO Q4H PRN 04/02/14 [History] Donepezil [Aricept] 10 mg PO BEDTIME 04/02/14 [History] Fesoterodine Fumarate [Toviaz] 4 mg PO DAILY 04/02/14 [History] Finasteride 5 mg PO DAILY 04/02/14 [History] Imatinib [Gleevec] 600 mg PO DAILY 04/02/14 [History] Mag Hydrox/Al Hydrox/Simeth [Mag-Al Plus XS] 30 ml PO Q4H PRN 04/02/14 [History] Meclizine [Antivert] 25 mg PO TID PRN 04/02/14 [History] Melatonin 3 mg PO BEDTIME 04/02/14 [History] Nystatin/Triamcinolone Crm [Mycolog Crm] 30 gm TOP BID PRN 04/02/14 [History] Sennosides/Docusate Sodium [Senna S Tablet] 2 tab PO DAILY PRN 04/02/14 [History ] Tadalafil [Cialis] 20 mg PO DAILY PRN 04/02/14 [History] Tamsulosin [Flomax] 0.4 mg PO DAILY 04/02/14 [History] atorvaSTATin [Lipitor] 10 mg PO BEDTIME 04/02/14 [History] sitaGLIPtin Phosphate [Januvia] 50 mg PO DAILY 04/02/14 [History] Warfarin [Coumadin] 7.5 mg PO DAILY 10/06/14 [History] Acetaminophen 650 mg PO BEDTIME 03/15/16 [History] Gabapentin [Neurontin] 300 mg PO BEDTIME 03/15/16 [History] Loperamide HCl [Anti-Diarrheal] 2 mg PO DAILY PRN 03/15/16 [History] Multivitamin [Multivitamins] 1 each PO DAILY 03/15/16 [History] Potassium Chloride [Klor-Con M20] 30 meq PO DAILY 03/16/16 [History] Sildenafil [Viagra] 1 tab PO DAILY PRN 03/23/16 [History] Bumetanide 2 mg PO DAILY 06/06/16 [History] Bumetanide [Bumex] 2 mg PO BID PRN MDD prn 06/06/16 [History] Digoxin [Lanoxin] 125 mcg PO ASDIRECTED 06/06/16 [History] Diltiazem [Cardizem CD] 240 mg PO DAILY 06/06/16 [History] Diphenhyd/Lidocaine/Nystatin [Magic Mouthwash] 15 ml PO TID 06/06/16 [History] Metoprolol Tartrate [Lopressor] 50 mg PO DAILY PRN 06/06/16 [History] Mupirocin Cream [Bactroban Crm] 1 applic TOP BID 06/06/16 [History] Nystatin [Mycostatin] 5 ml PO QID PRN 06/06/16 [History] Magnesium Amino Acid Chelate [Magnesium] 64 mg PO DAILY 08/29/16 [History] Metoprolol Tartrate [Lopressor] 25 mg PO ASDIRECTED PRN 08/29/16 [History] Pantoprazole Sodium [Protonix] 40 mg PO DAILY 08/29/16 [History] Potassium 20 meq PO TID 08/29/16 [History] Past Medical History HEENT History: Reports: None, Impaired Vision Other HEENT History: eyeglasses Cardiovascular History: Reports: Afib, Heart Failure, High Cholesterol, Hypertension, Pulmonary Hypertension Respiratory History: Reports: Sleep Apnea Other Respiratory History: uses a c-pap Gastrointestinal History: Reports: GERD Genitourinary History: Reports: BPH, Renal Calculus Other Genitourinary History: pt is incontinent. wears biefs Musculoskeletal History: Reports: Arthritis Psychiatric History: Reports: Anxiety Endocrine/Metabolic History: Reports: Diabetes, Type II Hematologic History: Reports: Anemia Other Hematologic History: CLL: leukemia hx Oncologic (Cancer) History: Reports: Leukemia Other Oncologic History: CLL: leukemia recent diagnosis of exacerbation of his CLL. pt has had one round of chemo but did not tolerate well. Dermatologic History: Reports: Melanoma - Infectious Disease History Infectious Disease History: Reports: C-Difficile, Shingles - Past Surgical History Head Surgeries/Procedures: Reports: None HEENT Surgical History: Reports: None Cardiovascular Surgical History: Reports: None GI Surgical History: Reports: Appendectomy, Colonoscopy Musculoskeletal Surgical History: Reports: Knee Replacement Dermatological Surgical History: Reports: Skin Biopsy Social & Family History - Family History Family Medical History: Noncontributory - Tobacco Use Smoking Status *Q: Never Smoker Second Hand Smoke Exposure: No - Caffeine Use Caffeine Use: Reports: Coffee Other Caffeine Use: 2 cups coffee - Alcohol Use Days Per Week of Alcohol Use: 0 Number of Drinks Per Day: 0 Total Drinks Per Week: 0 - Recreational Drug Use Recreational Drug Use: No - Living Situation & Occupation Living situation: Reports: Alone, Extended Care Facility, Other Occupation: Retired H&P Review of Systems - Review of Systems: Review Of Systems: See Below General: Reports: Weakness, Fatigue HEENT: Reports: No Symptoms Pulmonary: Reports: Shortness of Breath Cardiovascular: Reports: Lightheadedness Gastrointestinal: Reports: No Symptoms Genitourinary: Reports: No Symptoms Musculoskeletal: Reports: No Symptoms Skin: Reports: No Symptoms Psychiatric: Reports: No Symptoms Neurological: Reports: Dizziness Hematologic/Lymphatic: Reports: No Symptoms Immunologic: Reports: No Symptoms Exam - Exam Exam: See Below - Vital Signs Vital Signs: Last Vital Signs Temp 36.5 C 08/29/16 16:40 Pulse 50 L 08/29/16 16:40 Resp 14 08/29/16 16:40 BP 122/55 L 08/29/16 16:40 Pulse Ox 95 08/29/16 16:40 Weight: 91.626 kg - Exam Quality Assessment: Supplemental Oxygen, DVT Prophylaxis General: Alert, Oriented, Cooperative HEENT: Nares Patent, Normal Nasal Septum, Pupils Equal, Pupils Reactive Neck: Supple, Trachea Midline Lungs: Normal Respiratory Effort Cardiovascular: Regular Rate Abdomen: Normal Bowel Sounds, Soft (Male) Exam: Deferred Rectal (Males) Exam: Deferred Back Exam: Normal Inspection Extremities: Normal Pulses Skin: Warm Neurological: Cranial Nerves Intact Neuro Extensive - Mental Status: Alert, Normal Mood/Affect Neuro Extensive - Motor, Sensory, Reflexes: CN II-XII Intact Psychiatric: Alert, Normal Affect - Patient Data Result Diagrams: 08/29/16 17:05 08/29/16 17:05 *Q Meaningful Use (ADM) - VTE *Q VTE Criteria *Q: - Stroke *Q Stroke Criteria *Q: - AMI *Q AMI Criteria *Q: - Problem List (1) Anemia SNOMED Code(s): 374692197 ICD Code: D64.9 - ANEMIA, UNSPECIFIED Status: Acute Current Visit: Yes (2) CLL (chronic lymphocytic leukemia) SNOMED Code(s): 11504053 ICD Code: C91.10 - CHRONIC LYMPHOCYTIC LEUK OF B-CELL TYPE NOT ACHIEVE REMIS Status: Acute Current Visit: Yes (3) CML (chronic myelocytic leukemia) SNOMED Code(s): 14228898 ICD Code: C92.10 - CHRONIC MYELOID LEUK, BCR/ABL-POSITIVE, NOT ACHIEVE REMIS Status: Acute Current Visit: Yes (4) Heart block SNOMED Code(s): 856050679 ICD Code: I45.9 - CONDUCTION DISORDER, UNSPECIFIED Status: Acute Current Visit: Yes (5) Near syncope SNOMED Code(s): 685471845 ICD Code: R55 - SYNCOPE AND COLLAPSE Status: Acute Current Visit: Yes (6) Renal insufficiency syndrome SNOMED Code(s): 765104151, 542599043 ICD Code: N28.9 - DISORDER OF KIDNEY AND URETER, UNSPECIFIED Status: Acute Current Visit: Yes Problem List Initiated/Reviewed/Updated: Yes Orders Last 24hrs: Active Orders 24 hr Category Date Time Status Admission Status [Patient Status] [ADT] Routine ADT 08/29/16 20:28 Active Antiembolic Devices [RC] PER UNIT ROUTINE Care 08/29/16 20:26 Ordered Bedrest [RC] ASDIRECTED Care 08/29/16 20:18 Ordered EKG 12 Lead [EKG Documentation Completion] [RC] ROUTINE Care 08/30/16 08:00 Ordered Vital Signs [RC] PER UNIT ROUTINE Care 08/29/16 20:18 Ordered Consult to Energy Audit Advisor [CONS] Routine Cons 08/30/16 09:00 Ordered [place] [employer] Diet [DIET] Diet 08/30/16 Breakfast Ordered BMP [BASIC METABOLIC PANEL,BMP] [CHEM] DAILY Lab 08/30/16 05:00 Ordered BMP [BASIC METABOLIC PANEL,BMP] [CHEM] DAILY Lab 08/31/16 05:00 Ordered BMP [BASIC METABOLIC PANEL,BMP] [CHEM] DAILY Lab 09/01/16 05:00 Ordered BMP [BASIC METABOLIC PANEL,BMP] [CHEM] DAILY Lab 09/02/16 05:00 Ordered CBC W/O DIFF,HEMOGRAM [HEME] MOTH@0700 Lab 08/30/16 07:00 Ordered CBC W/O DIFF,HEMOGRAM [HEME] MOTH@0700 Lab 09/02/16 07:00 Ordered CBC W/O DIFF,HEMOGRAM [HEME] MOTH@0700 Lab 09/06/16 07:00 Ordered CBC W/O DIFF,HEMOGRAM [HEME] MOTH@0700 Lab 09/09/16 07:00 Ordered CBC W/O DIFF,HEMOGRAM [HEME] MOTH@0700 Lab 09/13/16 07:00 Ordered CBC W/O DIFF,HEMOGRAM [HEME] MOTH@0700 Lab 09/16/16 07:00 Ordered CBC WITH AUTO DIFF [HEME] DAILY Lab 08/30/16 05:00 Ordered CBC WITH AUTO DIFF [HEME] DAILY Lab 08/31/16 05:00 Ordered CBC WITH AUTO DIFF [HEME] DAILY Lab 09/01/16 05:00 Ordered CBC WITH AUTO DIFF [HEME] DAILY Lab 09/02/16 05:00 Ordered CKMB [CHEM] Routine Lab 08/30/16 05:00 Ordered MAGNESIUM [CHEM] DAILY Lab 08/30/16 05:00 Ordered MAGNESIUM [CHEM] DAILY Lab 08/31/16 05:00 Ordered MAGNESIUM [CHEM] DAILY Lab 09/01/16 05:00 Ordered MAGNESIUM [CHEM] DAILY Lab 09/02/16 05:00 Ordered TROPONIN I [CHEM] Routine Lab 08/30/16 05:00 Ordered Bumetanide [Bumex] Med 08/29/16 20:14 Ordered 2 mg PO BID PRN Diphenhyd/Lidocaine/Nystatin Med 08/29/16 21:00 Ordered 15 ml PO TID Donepezil [Aricept] Med 08/29/16 21:00 Ordered 10 mg PO BEDTIME Enoxaparin [Lovenox] Med 08/30/16 09:00 Ordered 80 mg SUBCUT DAILY Fesoterodine Fumarate [Toviaz] Med 08/30/16 09:00 Ordered 4 mg PO DAILY Finasteride [Proscar] Med 08/30/16 09:00 Ordered 5 mg PO DAILY Gabapentin [Neurontin] Med 08/29/16 21:00 Ordered 300 mg PO BEDTIME Imatinib [Gleevec] Med 08/30/16 09:00 Ordered 600 mg PO DAILY Loperamide [Imodium] Med 08/29/16 20:14 Ordered 2 mg PO DAILY PRN Magnesium Amino Acid Chelate [Magnesium] Med 08/30/16 09:00 Ordered 64 mg PO DAILY Nystatin [Mycostatin] Med 08/29/16 20:14 Ordered 5 ml PO QID PRN Pantoprazole [ProTONIX] Med 08/30/16 09:00 Ordered 40 mg PO DAILY Simvastatin [Zocor] Med 08/29/16 21:00 Active 10 mg PO BEDTIME Sodium Chloride 0.9% @ 75 MLS/HR(1000ml Bag) Med 08/29/16 20:30 Ordered Sodium Chloride 0.9% [Normal Saline] 1,000 ml IV ASDIRECTED Tamsulosin [Flomax] Med 08/30/16 09:00 Ordered 0.4 mg PO DAILY Warfarin [Coumadin] Med 08/30/16 09:00 Ordered 7.5 mg PO DAILY BROOKE Hose [Antiembolic Hose] [OM.PC] Routine Oth 08/29/16 20:26 Ordered Code Status [Resuscitation Status] Routine Resus Stat 08/29/16 20:18 Ordered Medication Orders Bumetanide (Bumex) 2 mg PO BID PRN PRN Reason: chf Donepezil HCl (Aricept) 10 mg PO BEDTIME KAREN Enoxaparin Sodium (Lovenox) 80 mg SUBCUT DAILY KAREN Finasteride (Proscar) 5 mg PO DAILY KAREN Gabapentin (Neurontin) 300 mg PO BEDTIME KAREN Sodium Chloride (Normal Saline) 1,000 mls @ 75 mls/hr IV ASDIRECTED KAREN Loperamide HCl (Imodium) 2 mg PO DAILY PRN PRN Reason: Diarrhea Non-Formulary Medication (Diphenhyd/Lidocaine/Nystatin) 15 ml PO TID KAREN Non-Formulary Medication (Fesoterodine Fumarate [Toviaz]) 4 mg PO DAILY KAREN Non-Formulary Medication (Imatinib [Gleevec]) 600 mg PO DAILY KAREN Non-Formulary Medication (Magnesium Amino Acid Chelate [Magnesium]) 64 mg PO DAILY KAREN Nystatin (Mycostatin) 5 ml PO QID PRN PRN Reason: Pain Pantoprazole Sodium (Protonix) 40 mg PO DAILY KAREN Simvastatin (Zocor) 10 mg PO BEDTIME KAREN Sodium Chloride (Saline Flush) 10 ml FLUSH ASDIRECTED PRN PRN Reason: Keep Vein Open Last Admin: 08/29/16 17:23 Dose: 10 ml Tamsulosin HCl (Flomax) 0.4 mg PO DAILY KAREN Warfarin Sodium (Coumadin) 7.5 mg PO DAILY KAREN Assessment/Plan Comment:: Impression: LBBB, old Complete heart block; presyncopal History of A Fib on Cardizem, BB, and Digoxin level, dig level 0.7 Not therapeutic on Coumadin AMI, type 2 CKD III-IV Chronic ED on Viagra and Cialis CLL CML Anemia NORMA on CPAP Diabetes Mellitus HTN PHTN Hyperlipidemia CHF, BNP 740 Plan: Hold AV michoacano blockers; may need PPM. ICU admission Restart Coumadin with Lovenox, sub-therapeutic IVF at 75 cc/hr Bedrest only, may participate with PT/OT DVT/GI prophylaxis DNR/DNI
[2016-08-29] MEDS ORDERED: NYSTATIN PO SCH (21:00)
[2016-08-29] MEDS ORDERED: Non-Formulary Medication 1 Each (Atorvastatin 10 MG) PO SCH (21:00)
[2016-08-29] MEDS: Sodium Chloride 0.9% 1,000 ML IV SCH (21:00)
[2016-08-29] MEDS ORDERED: LIDOCAINE PO SCH (21:00)
[2016-08-29] MEDS ORDERED: DIPHENHYD PO SCH (21:00)
[2016-08-29] MEDS ORDERED: Simvastatin 10 MG Tab PO SCH (21:00)
[2016-08-29] MEDS: Gabapentin 300 MG Cap PO SCH (21:24)
[2016-08-29] MEDS: Donepezil 10 MG Tab PO SCH (21:24)
[2016-08-30] MEDS: Sodium Chloride 0.9% 1,000 ML IV SCH (03:40)
[2016-08-30] MEDS: Pantoprazole 40 MG Tab.CR PO SCH (06:08)
[2016-08-30] MEDS ORDERED: LIDOCAINE PO SCH (07:20)
[2016-08-30] MEDS ORDERED: NYSTATIN PO SCH (07:20)
[2016-08-30] MEDS ORDERED: DIPHENHYD PO SCH (07:20)
[2016-08-30] MEDS ORDERED: Magnesium Sulfate/Water 2 GM in Premix Bag 1 BAG IV ONE (08:06)
[2016-08-30] MEDS: Finasteride 5 MG Tab PO SCH (08:28)
[2016-08-30] MEDS: Magnesium Oxide 400 MG Tab PO SCH (08:28)
[2016-08-30] MEDS: Tamsulosin 0.4 MG Cap.ER PO SCH (08:29)
[2016-08-30] MEDS: IMATINIB PO SCH (08:30)
--- NOTE | 2016-08-30 09:05 | CR ---
Left knee: Four views of the left knee were obtained. Comparison: No previous knee exam. Knee prosthesis is seen. Components are aligned. Underlying bony structures are intact. No fracture is seen. Slight dystrophic bone seen around the knee which is incidental. Vascular calcification is seen. Impression: 1. Left knee prosthesis. No acute bony abnormality is identified. Diagnostic code #2
--- NOTE | 2016-08-30 09:05 | CR ---
Chest: Portable view of the chest was obtained. Comparison: Previous chest x-ray of 06/11/16. Heart is enlarged. Central lung markings increased which appears mostly to be chronic. Minimal blunting of the lateral left costophrenic angle is seen which is improved from prior exam. Bony structures show mild scoliosis within the spine and degenerative change. Impression: 1. Cardiomegaly. 2. Increased central lung markings which appear to be chronic. Other incidental findings. Diagnostic code #3
[2016-08-30] MEDS: Enoxaparin 80 MG/0.8 ML Syringe SUBCUT SCH (09:31)
[2016-08-30] MEDS: Fesoterodine Fumarate [Toviaz] 4 MG PO SCH (09:31)
--- NOTE | 2016-08-30 10:50 | PCM.PN ---
- General Info Date of Service: 08/30/16 Functional Status: Reports: pain controlled, tolerating diet, ambulating, urinating - Review of Systems General: Reports: Weakness HEENT: Reports: no symptoms Pulmonary: Reports: no symptoms Cardiovascular: Reports: No Symptoms Gastrointestinal: Reports: No symptoms Genitourinary: Reports: no symptoms Musculoskeletal: Reports: no symptoms Skin: Reports: no symptoms Neurological: Reports: No Symptoms Psychiatric: Reports: no symptoms - Patient Data Vitals - most recent: Last Vital Signs Temp 36.7 C 08/30/16 07:48 Pulse 60 08/30/16 07:48 Resp 18 08/30/16 07:48 BP 123/76 08/30/16 07:48 Pulse Ox 95 08/30/16 07:48 Weight - most recent: 93.531 kg I&O - last 24 hours: Intake & Output 08/29/16 08/30/16 08/30/16 22:59 06:59 14:59 Intake Total 120 1400 730 Output Total 175 300 Balance -55 1100 730 Lab Results last 24 hrs: Laboratory Results - last 24 hr 08/30/16 08/30/16 08/30/16 Range/Units 05:35 05:36 05:36 WBC 45.69 H (4.23-9.07) K/mm3 RBC 2.47 L (4.63-6.08) M/mm3 Hgb 8.2 L (13.7-17.5) gm/L Hct 26.1 L (40.1-51.0) % MCV 105.7 H (79.0-92.2) fl MCH 33.2 H (25.7-32.2) pg MCHC 31.4 L (32.2-35.5) g/dl RDW Std Deviation 73.0 H (35.1-43.9) fL Plt Count 114 L (163-337) K/mm3 MPV 9.3 L (9.4-12.3) fl Neutrophils % (Manual) 6 L (40-60) % Band Neutrophils % 0 (0-10) % Lymphocytes % (Manual) 91 H (20-40) % Atypical Lymphs % 0 % Monocytes % (Manual) 2 (2-10) % Eosinophils % (Manual) 1 (0.8-7.0) % Basophils % (Manual) 0 L (0.2-1.2) Platelet Estimate Adequate Poikilocytosis 2+ moderate Anisocytosis 1+ slight Macrocytosis 2+ moderate RBC Morph Comment Not Reportable Sodium 142 (136-145) mEq/L Potassium 3.5 (3.5-5.1) mEq/L Chloride 106 (98-107) mEq/L Carbon Dioxide 26 (21-32) mEq/L Anion Gap 13.5 (5-15) BUN 19 H (7-18) mg/dL Creatinine 1.6 H (0.7-1.3) mg/dL Est Cr Clr Drug Dosing 35.63 mL/min Estimated GFR (MDRD) 42 (>60) mL/min BUN/Creatinine Ratio 11.9 L (14-18) Glucose 124 H (83-115) mg/dL Calcium 7.9 L (8.5-10.1) mg/dL Magnesium 1.4 L (1.8-2.4) mg/dl CK-MB (CK-2) 0.7 (0-3.6) ng/ml Troponin I 0.059 H* (0.00-0.056) ng/mL MRSA (PCR) Negative Med Orders - Current: Current Medications Bumetanide (Bumex) 2 mg PO BID PRN PRN Reason: chf Donepezil HCl (Aricept) 10 mg PO BEDTIME [facility] Last Admin: 08/29/16 21:24 Dose: 10 mg Enoxaparin Sodium (Lovenox) 80 mg SUBCUT DAILY [facility] Last Admin: 08/30/16 09:31 Dose: 80 mg Finasteride (Proscar) 5 mg PO DAILY [facility] Last Admin: 08/30/16 08:28 Dose: 5 mg Gabapentin (Neurontin) 300 mg PO BEDTIME [facility] Last Admin: 08/29/16 21:24 Dose: 300 mg Loperamide HCl (Imodium) 2 mg PO DAILY PRN PRN Reason: Diarrhea Magnesium Oxide (Magnesium Oxide) 400 mg PO DAILY [facility] Last Admin: 08/30/16 08:28 Dose: 400 mg Nystatin (Mycostatin) 5 ml PO QID PRN PRN Reason: Pain Pantoprazole Sodium (Protonix) 40 mg PO DAILY@0700 [facility] Last Admin: 08/30/16 06:08 Dose: 40 mg Fesoterodine Fumarate [Toviaz] 4 Mg 0 each PO DAILY [facility] Last Admin: 08/30/16 09:31 Dose: 1 each Imatinib [Gleevec] (600 Mg) 0 each PO DAILY [facility] Last Admin: 08/30/16 08:30 Dose: 1 each Potassium Chloride (Klor-Con M20) 20 meq PO TID [facility] Sodium Chloride (Saline Flush) 10 ml FLUSH ASDIRECTED PRN PRN Reason: Keep Vein Open Last Admin: 08/29/16 17:23 Dose: 10 ml Tamsulosin HCl (Flomax) 0.4 mg PO DAILY [facility] Last Admin: 08/30/16 08:29 Dose: 0.4 mg Warfarin Sodium (Coumadin) 7.5 mg PO DAILY@1800 [facility] Discontinued Medications Sodium Chloride (Normal Saline) 500 mls @ 999 mls/hr IV .BOLUS ONE Stop: 08/29/16 17:38 Last Admin: 08/29/16 17:20 Dose: 999 mls/hr Sodium Chloride (Normal Saline) 1,000 mls @ 75 mls/hr IV ASDIRECTED [facility] Last Infusion: 08/30/16 07:40 Dose: 0 mls/hr Magnesium Sulfate 2 gm/ Premix 50 mls @ 25 mls/hr IV ONETIME ONE Stop: 08/30/16 10:05 Last Admin: 08/30/16 08:28 Dose: 25 mls/hr Non-Formulary Medication (Diphenhyd/Lidocaine/Nystatin) 15 ml PO TID [facility] Last Admin: 08/29/16 22:23 Dose: Not Given Ondansetron HCl (Zofran) 4 mg IVPUSH ONETIME ONE Stop: 08/29/16 17:09 Last Admin: 08/29/16 17:20 Dose: 4 mg Diphenhyd/Lidocaine/ (Nystatin) 0 each PO TID [facility] Last Admin: 08/30/16 08:30 Dose: Not Given Simvastatin (Zocor) 10 mg PO BEDTIME [facility] Last Admin: 08/29/16 21:24 Dose: 10 mg - Exam Quality Assessment: supplemental oxygen, DVT prophylaxis General: alert, oriented, cooperative, no acute distress HEENT: Pupils equal, Pupils reactive, EOMI Neck: supple, trachea midline Lungs: Normal respiratory effort Cardiovascular: Regular Rate, Irregular Rhythm Abdomen: bowel sounds present, soft, no tenderness, no distension (Male) Exam: Deferred Back Exam: Normal Inspection Extremities: normal pulses Skin: warm Neurological: no new focal deficit, normal gait, normal speech Psy/Mental Status: alert, normal affect, normal mood - Problem List & Annotations (1) Anemia SNOMED Code(s): 720359161 Code(s): D64.9 - ANEMIA, UNSPECIFIED Status: Acute Current Visit: Yes (2) CLL (chronic lymphocytic leukemia) SNOMED Code(s): 75898819 Code(s): C91.10 - CHRONIC LYMPHOCYTIC LEUK OF B-CELL TYPE NOT ACHIEVE REMIS Status: Acute Current Visit: Yes (3) CML (chronic myelocytic leukemia) SNOMED Code(s): 60258530 Code(s): C92.10 - CHRONIC MYELOID LEUK, BCR/ABL-POSITIVE, NOT ACHIEVE REMIS Status: Acute Current Visit: Yes (4) Heart block SNOMED Code(s): 312584860 Code(s): I45.9 - CONDUCTION DISORDER, UNSPECIFIED Status: Acute Current Visit: Yes (5) Near syncope SNOMED Code(s): 439237796 Code(s): R55 - SYNCOPE AND COLLAPSE Status: Acute Current Visit: Yes (6) Renal insufficiency syndrome SNOMED Code(s): 559644286, 750272405 Code(s): N28.9 - DISORDER OF KIDNEY AND URETER, UNSPECIFIED Status: Acute Current Visit: Yes - Problem List Review Problem List Initiated/Reviewed/Updated: Yes - My Orders Last 24 Hours: My Active Orders 08/29/16 20:14 Bumetanide [Bumex] 2 mg PO BID PRN Loperamide [Imodium] 2 mg PO DAILY PRN Nystatin [Mycostatin] 5 ml PO QID PRN 08/29/16 20:18 Bedrest [RC] ASDIRECTED Vital Signs [RC] Q4H Code Status [Resuscitation Status] Routine 08/29/16 20:26 Antiembolic Devices [RC] 10,22 BROOKE Hose [Antiembolic Hose] [OM.PC] Routine 08/29/16 21:00 Donepezil [Aricept] 10 mg PO BEDTIME Gabapentin [Neurontin] 300 mg PO BEDTIME 08/30/16 07:00 Pantoprazole [ProTONIX] 40 mg PO DAILY@0700 08/30/16 08:00 EKG 12 Lead [EKG Documentation Completion] [RC] ROUTINE 08/30/16 09:00 Consult to Data Conversion Operator [CONS] Routine OT Evaluation and Treatment [CONS] Routine PT Evaluation and Treatment [CONS] Routine Enoxaparin [Lovenox] 80 mg SUBCUT DAILY Finasteride [Proscar] 5 mg PO DAILY Magnesium Oxide 400 mg PO DAILY Patient's Own Medication [Ptom] 0 each PO DAILY Patient's Own Medication [Ptom] 0 each PO DAILY Tamsulosin [Flomax] 0.4 mg PO DAILY 08/30/16 11:30 Potassium Chloride [Klor-Con M20] 20 meq PO TID 08/30/16 18:00 Warfarin [Coumadin] 7.5 mg PO DAILY@1800 08/30/16 Breakfast [place] [employer] Diet [DIET] 08/31/16 05:00 BMP [BASIC METABOLIC PANEL,BMP] [CHEM] DAILY CBC WITH AUTO DIFF [HEME] DAILY MAGNESIUM [CHEM] DAILY 09/01/16 05:00 BMP [BASIC METABOLIC PANEL,BMP] [CHEM] DAILY CBC WITH AUTO DIFF [HEME] DAILY MAGNESIUM [CHEM] DAILY 09/02/16 05:00 BMP [BASIC METABOLIC PANEL,BMP] [CHEM] DAILY CBC WITH AUTO DIFF [HEME] DAILY MAGNESIUM [CHEM] DAILY 09/02/16 07:00 CBC W/O DIFF,HEMOGRAM [HEME] MOTH@0700 09/06/16 07:00 CBC W/O DIFF,HEMOGRAM [HEME] MOTH@0700 09/09/16 07:00 CBC W/O DIFF,HEMOGRAM [HEME] MOTH@0700 09/13/16 07:00 CBC W/O DIFF,HEMOGRAM [HEME] MOTH@0700 09/16/16 07:00 CBC W/O DIFF,HEMOGRAM [HEME] MOTH@0700 - Plan Plan:: Impression: LBBB, old Complete heart block, resolved; presyncopal; variable block: Mobitz I and II, additionally SB/SR/AFib AN michoacano blockers are on hold. History of A Fib on Cardizem, BB, and Digoxin level, dig level 0.7 Not therapeutic on Coumadin, started Lovenox to expedite correction of INR. AMI, type 2 CKD III-IV Chronic ED on Viagra and Cialis CLL CML Anemia NORMA on CPAP Diabetes Mellitus HTN PHTN Hyperlipidemia CHF, BNP 740 Plan: Hold AV michoacano blockers; may need PPM; definite answer may require outpatient device eg Medtonic LINQ or similar device. ICU admission, ok to increase activity as tolerated. IVF, saline lock PT/OT, increase activity level DVT/GI prophylaxis DNR/DNI
[2016-08-30] MEDS: Potassium Chloride 20 MEQ Tab.ER PO SCH ×3 (11:29→20:00)
[2016-08-30] MEDS: Warfarin 7.5 MG Tab PO SCH (17:38)
[2016-08-30] MEDS: Insulin Aspart 100 Units/ML 3 ML Pen SUBCUT SCH ×2 (17:40→21:27)
[2016-08-30] MEDS: Donepezil 10 MG Tab PO SCH (20:00)
[2016-08-30] MEDS: Gabapentin 300 MG Cap PO SCH (20:00)
[2016-08-30] MEDS: Temazepam 15 MG Cap PO PRN (20:02)
[2016-08-31] MEDS: Pantoprazole 40 MG Tab.CR PO SCH (06:04)
[2016-08-31] MEDS: Acetaminophen 325 MG Tab PO PRN ×2 (06:05→20:36)
[2016-08-31] MEDS: Insulin Aspart 100 Units/ML 3 ML Pen SUBCUT SCH ×4 (07:42→22:17)
[2016-08-31] MEDS: Tamsulosin 0.4 MG Cap.ER PO SCH (09:21)
[2016-08-31] MEDS: Enoxaparin 80 MG/0.8 ML Syringe SUBCUT SCH (09:21)
[2016-08-31] MEDS: Finasteride 5 MG Tab PO SCH (09:21)
[2016-08-31] MEDS: Potassium Chloride 20 MEQ Tab.ER PO SCH ×3 (09:22→20:36)
[2016-08-31] MEDS: Magnesium Oxide 400 MG Tab PO SCH (09:23)
[2016-08-31] MEDS: Fesoterodine Fumarate [Toviaz] 4 MG PO SCH (10:13)
[2016-08-31] MEDS: IMATINIB PO SCH (10:14)
--- NOTE | 2016-08-31 10:25 | PCM.PN ---
- General Info Date of Service: 08/31/16 Functional Status: Reports: pain controlled, tolerating diet, ambulating, urinating - Review of Systems General: Reports: No Symptoms HEENT: Reports: no symptoms Pulmonary: Reports: no symptoms Cardiovascular: Reports: No Symptoms Gastrointestinal: Reports: No symptoms Genitourinary: Reports: no symptoms Musculoskeletal: Reports: no symptoms Skin: Reports: no symptoms Neurological: Reports: No Symptoms Psychiatric: Reports: no symptoms - Patient Data Vitals - most recent: Last Vital Signs Temp 36.6 C 08/31/16 07:57 Pulse 50 L 08/31/16 00:23 Resp 16 08/31/16 07:57 BP 113/40 L 08/31/16 07:57 Pulse Ox 94 L 08/31/16 07:57 Weight - most recent: 93.712 kg I&O - last 24 hours: Intake & Output 08/30/16 08/31/16 08/31/16 22:59 06:59 14:59 Intake Total 1490 1100 Output Total 425 Balance 1490 675 Lab Results last 24 hrs: Laboratory Results - last 24 hr 08/31/16 08/31/16 08/31/16 Range/Units 07:19 07:19 07:19 WBC 46.06 H (4.23-9.07) K/mm3 RBC 2.57 L (4.63-6.08) M/mm3 Hgb 8.5 L (13.7-17.5) gm/L Hct 27.1 L (40.1-51.0) % MCV 105.4 H (79.0-92.2) fl MCH 33.1 H (25.7-32.2) pg MCHC 31.4 L (32.2-35.5) g/dl RDW Std Deviation 73.4 H (35.1-43.9) fL Plt Count 109 L (163-337) K/mm3 MPV 9.3 L (9.4-12.3) fl Neutrophils % (Manual) 6 L (40-60) % Band Neutrophils % 1 (0-10) % Lymphocytes % (Manual) 89 H (20-40) % Monocytes % (Manual) 0 L (2-10) % Eosinophils % (Manual) 0 L (0.8-7.0) % Basophils % (Manual) 0 L (0.2-1.2) Differential Comment See note Platelet Estimate See note Polychromasia 1+ slight Anisocytosis 1+ slight Macrocytosis 1+ slight RBC Morph Comment Not Reportable PT 16.2 H (8.0-13.0) SECONDS INR 1.45 Sodium 140 (136-145) mEq/L Potassium 3.8 (3.5-5.1) mEq/L Chloride 104 (98-107) mEq/L Carbon Dioxide 25 (21-32) mEq/L Anion Gap 14.8 (5-15) BUN 14 (7-18) mg/dL Creatinine 1.3 (0.7-1.3) mg/dL Est Cr Clr Drug Dosing 43.85 mL/min Estimated GFR (MDRD) 53 (>60) mL/min BUN/Creatinine Ratio 10.8 L (14-18) Glucose 118 H (83-115) mg/dL Calcium 8.3 L (8.5-10.1) mg/dL Magnesium 1.8 (1.8-2.4) mg/dl Med Orders - Current: Current Medications Acetaminophen (Tylenol) 650 mg PO Q4H PRN PRN Reason: Pain Last Admin: 08/31/16 06:05 Dose: 650 mg Bumetanide (Bumex) 2 mg PO BID PRN PRN Reason: chf Donepezil HCl (Aricept) 10 mg PO BEDTIME [facility] Last Admin: 08/30/16 20:00 Dose: 10 mg Enoxaparin Sodium (Lovenox) 80 mg SUBCUT DAILY [facility] Last Admin: 08/31/16 09:21 Dose: 80 mg Finasteride (Proscar) 5 mg PO DAILY [facility] Last Admin: 08/31/16 09:21 Dose: 5 mg Gabapentin (Neurontin) 300 mg PO BEDTIME [facility] Last Admin: 08/30/16 20:00 Dose: 300 mg Insulin Aspart (Novolog) 0 unit SUBCUT QIDACANDBED [facility] PRN Reason: Protocol Last Admin: 08/31/16 07:42 Dose: Not Given Loperamide HCl (Imodium) 2 mg PO DAILY PRN PRN Reason: Diarrhea Magnesium Oxide (Magnesium Oxide) 400 mg PO DAILY [facility] Last Admin: 08/31/16 09:23 Dose: 400 mg Nystatin (Mycostatin) 5 ml PO QID PRN PRN Reason: Pain Pantoprazole Sodium (Protonix) 40 mg PO DAILY@0700 [facility] Last Admin: 08/31/16 06:04 Dose: 40 mg Fesoterodine Fumarate [Toviaz] 4 Mg 0 each PO DAILY [facility] Last Admin: 08/31/16 10:13 Dose: 1 each Imatinib [Gleevec] (600 Mg) 0 each PO DAILY [facility] Last Admin: 08/31/16 10:14 Dose: 1 each Potassium Chloride (Klor-Con M20) 20 meq PO TID [facility] Last Admin: 08/31/16 09:22 Dose: 20 meq Sodium Chloride (Saline Flush) 10 ml FLUSH ASDIRECTED PRN PRN Reason: Keep Vein Open Last Admin: 08/29/16 17:23 Dose: 10 ml Tamsulosin HCl (Flomax) 0.4 mg PO DAILY [facility] Last Admin: 08/31/16 09:21 Dose: 0.4 mg Temazepam (Restoril) 15 mg PO BEDTIME PRN PRN Reason: Sleep Last Admin: 08/30/16 20:02 Dose: 15 mg Warfarin Sodium (Coumadin) 7.5 mg PO DAILY@1800 [facility] Last Admin: 08/30/16 17:38 Dose: 7.5 mg Discontinued Medications Sodium Chloride (Normal Saline) 500 mls @ 999 mls/hr IV .BOLUS ONE Stop: 08/29/16 17:38 Last Admin: 08/29/16 17:20 Dose: 999 mls/hr Sodium Chloride (Normal Saline) 1,000 mls @ 75 mls/hr IV ASDIRECTED [facility] Last Infusion: 08/30/16 07:40 Dose: 0 mls/hr Magnesium Sulfate 2 gm/ Premix 50 mls @ 25 mls/hr IV ONETIME ONE Stop: 08/30/16 10:05 Last Admin: 08/30/16 08:28 Dose: 25 mls/hr Non-Formulary Medication (Diphenhyd/Lidocaine/Nystatin) 15 ml PO TID [facility] Last Admin: 08/29/16 22:23 Dose: Not Given Ondansetron HCl (Zofran) 4 mg IVPUSH ONETIME ONE Stop: 08/29/16 17:09 Last Admin: 08/29/16 17:20 Dose: 4 mg Diphenhyd/Lidocaine/ (Nystatin) 0 each PO TID [facility] Last Admin: 08/30/16 08:30 Dose: Not Given Simvastatin (Zocor) 10 mg PO BEDTIME [facility] Last Admin: 08/29/16 21:24 Dose: 10 mg - Exam Quality Assessment: supplemental oxygen, DVT prophylaxis General: alert, oriented, cooperative HEENT: Pupils equal, Pupils reactive, EOMI Neck: supple, trachea midline, no JVD Lungs: Normal respiratory effort Cardiovascular: Regular Rate, Regular Rhythm Abdomen: bowel sounds present, soft, no tenderness, no distension (Male) Exam: Deferred Back Exam: Normal Inspection Extremities: normal pulses Skin: warm Neurological: no new focal deficit Psy/Mental Status: alert, normal affect, normal mood - Problem List & Annotations (1) Anemia SNOMED Code(s): 273136445 Code(s): D64.9 - ANEMIA, UNSPECIFIED Status: Acute Current Visit: Yes (2) CLL (chronic lymphocytic leukemia) SNOMED Code(s): 79059103 Code(s): C91.10 - CHRONIC LYMPHOCYTIC LEUK OF B-CELL TYPE NOT ACHIEVE REMIS Status: Acute Current Visit: Yes (3) CML (chronic myelocytic leukemia) SNOMED Code(s): 51419571 Code(s): C92.10 - CHRONIC MYELOID LEUK, BCR/ABL-POSITIVE, NOT ACHIEVE REMIS Status: Acute Current Visit: Yes (4) Heart block SNOMED Code(s): 664863284 Code(s): I45.9 - CONDUCTION DISORDER, UNSPECIFIED Status: Acute Current Visit: Yes (5) Near syncope SNOMED Code(s): 896188288 Code(s): R55 - SYNCOPE AND COLLAPSE Status: Acute Current Visit: Yes (6) Renal insufficiency syndrome SNOMED Code(s): 898376567, 195033587 Code(s): N28.9 - DISORDER OF KIDNEY AND URETER, UNSPECIFIED Status: Acute Current Visit: Yes - Problem List Review Problem List Initiated/Reviewed/Updated: Yes - My Orders Last 24 Hours: My Active Orders 08/30/16 11:30 Potassium Chloride [Klor-Con M20] 20 meq PO TID 08/30/16 12:51 Activity as Tolerated [RC] .Routine 08/30/16 15:39 Blood Glucose Check, Bedside [RC] WITHMEALSANDBED 08/30/16 17:00 Insulin Aspart [NovoLOG] See Protocol SUBCUT QIDACANDBED 08/30/16 18:00 Warfarin [Coumadin] 7.5 mg PO DAILY@1800 08/30/16 19:55 Temazepam [Restoril] 15 mg PO BEDTIME PRN 08/31/16 05:32 Acetaminophen [Tylenol] 650 mg PO Q4H PRN 08/31/16 10:22 Patient Status [ADT] Routine 09/01/16 05:00 BMP [BASIC METABOLIC PANEL,BMP] [CHEM] DAILY CBC WITH AUTO DIFF [HEME] DAILY MAGNESIUM [CHEM] DAILY 09/02/16 05:00 BMP [BASIC METABOLIC PANEL,BMP] [CHEM] DAILY CBC WITH AUTO DIFF [HEME] DAILY MAGNESIUM [CHEM] DAILY 09/02/16 07:00 CBC W/O DIFF,HEMOGRAM [HEME] MOTH@0700 09/06/16 07:00 CBC W/O DIFF,HEMOGRAM [HEME] MOTH@0700 09/09/16 07:00 CBC W/O DIFF,HEMOGRAM [HEME] MOTH@0700 09/13/16 07:00 CBC W/O DIFF,HEMOGRAM [HEME] MOTH@0700 09/16/16 07:00 CBC W/O DIFF,HEMOGRAM [HEME] MOTH@0700 - Plan Plan:: Impression: LBBB, old Complete heart block, resolved; presyncopal; variable block: Mobitz I and II, additionally SB/SR/AFib AN [place] blockers are on hold. History of A Fib on Cardizem, BB, and Digoxin level, dig level 0.7 Not therapeutic on Coumadin, started Lovenox to expedite correction of INR. 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 Will contact [facility] ICU admission, ok to increase activity as tolerated. IVF, saline lock PT/OT, increase activity level DVT/GI prophylaxis DNR/DNI Status change to I AM AT tele DC 24-48 hours
[2016-08-31] MEDS ORDERED: Magnesium Sulfate/Water 2 GM in Premix Bag 1 BAG IV ONE (14:58)
[2016-08-31] MEDS: Warfarin 7.5 MG Tab PO SCH (18:10)
[2016-08-31] MEDS: Gabapentin 300 MG Cap PO SCH (20:36)
[2016-08-31] MEDS: Donepezil 10 MG Tab PO SCH (20:36)
[2016-08-31] MEDS: Temazepam 15 MG Cap PO PRN (20:36)
[2016-09-01] MEDS: Pantoprazole 40 MG Tab.CR PO SCH (06:09)
[2016-09-01] MEDS: Insulin Aspart 100 Units/ML 3 ML Pen SUBCUT SCH (06:11)
[2016-09-01 08:02] VITALS: BP 149/79
--- NOTE | 2016-09-01 08:45 | PCM.DCSUM1 ---
Addendum entered and electronically signed by Ariella Brenner PA-C 14:02: Discharge Summary - Hospital Course Free Text/Narrative:: Face to face encounter with patient and family on day of discharge with Dr. Prasad shows that patient will benefit from Home Health Care Nursing Services along with [facility] PT/OT. Patient is home bound due to his advanced cardiac disease and dementia. Benefits will include strength and balancing, retraining with ADL' s, nursing care for medication education, disease process education, VS monitoring with regard to diagnoses of sick sinus syndrome/heart block, chf. Patient will follow up with his PCP, Dr. Edwards within one week of discharge who will assume [facility] orders at that time. - Discharge Data Discharge Date: 09/01/16 Discharge Disposition: DC/Tfer to Other 70 Condition: Good - Discharge Diagnosis/Problem(s) (1) Heart block SNOMED Code(s): 126053136 ICD Code: I45.9 - CONDUCTION DISORDER, UNSPECIFIED Status: Resolved Priority: High (2) Congestive heart failure SNOMED Code(s): 22278673 ICD Code: I50.9 - HEART FAILURE, UNSPECIFIED Status: Resolved Priority: High Qualifiers: Congestive heart failure chronicity: acute on chronic (3) Near syncope SNOMED Code(s): 739612097 ICD Code: R55 - SYNCOPE AND COLLAPSE Status: Resolved Priority: High (4) Renal insufficiency syndrome SNOMED Code(s): 728820684, 623026167 ICD Code: N28.9 - DISORDER OF KIDNEY AND URETER, UNSPECIFIED Status: Chronic Priority: High (5) CML (chronic myelocytic leukemia) SNOMED Code(s): 75768507 ICD Code: C92.10 - CHRONIC MYELOID LEUK, BCR/ABL-POSITIVE, NOT ACHIEVE REMIS Status: Chronic (6) CLL (chronic lymphocytic leukemia) SNOMED Code(s): 22434946 ICD Code: C91.10 - CHRONIC LYMPHOCYTIC LEUK OF B-CELL TYPE NOT ACHIEVE REMIS Status: Chronic Priority: Medium - Patient Summary/Data Operative Procedure(s) Performed: None Consults: Consultations 08/30/16 09:00 Consult to Sr. Manager Marketing [CONS] Routine OT Evaluation and Treatment [CONS] Routine PT Evaluation and Treatment [CONS] Routine - Patient Instructions Diet: Heart Healthy Diet, Diabetic Diet Activity: As Tolerated Driving: Do Not Drive Showering/Bathing: May Shower Notify Provider of: Fever, Increased Pain, Nausea and/or Vomiting (shortness of breath, chest pain, dizziness) - Discharge Plan Prescriptions/Med Rec: Metoprolol Tartrate [Lopressor] 12.5 mg PO Q12HR #60 tablet Home Medications: Home Meds Acetaminophen [Tylenol] 650 mg PO Q4H PRN 04/02/14 [History] Donepezil [Aricept] 10 mg PO BEDTIME 04/02/14 [History] Fesoterodine Fumarate [Toviaz] 4 mg PO DAILY 04/02/14 [History] Finasteride 5 mg PO DAILY 04/02/14 [History] Imatinib [Gleevec] 600 mg PO DAILY 04/02/14 [History] Mag Hydrox/Al Hydrox/Simeth [Mag-Al Plus XS] 30 ml PO Q4H PRN 04/02/14 [History] Meclizine [Antivert] 25 mg PO TID PRN 04/02/14 [History] Melatonin 3 mg PO BEDTIME 04/02/14 [History] Sennosides/Docusate Sodium [Senna S Tablet] 2 tab PO DAILY PRN 04/02/14 [History ] Tamsulosin [Flomax] 0.4 mg PO DAILY 04/02/14 [History] sitaGLIPtin Phosphate [Januvia] 50 mg PO DAILY 04/02/14 [History] Warfarin [Coumadin] 7.5 mg PO DAILY 10/06/14 [History] Acetaminophen 650 mg PO BEDTIME 03/15/16 [History] Gabapentin [Neurontin] 300 mg PO BID 03/15/16 [History] Loperamide HCl [Anti-Diarrheal] 2 mg PO DAILY PRN MDD 8 03/15/16 [History] Multivitamin [Multivitamins] 1 each PO DAILY 03/15/16 [History] Potassium Chloride [Klor-Con M20] 20 meq PO TID 03/16/16 [History] Bumetanide 2 mg PO DAILY 06/06/16 [History] Diphenhyd/Lidocaine/Nystatin [Magic Mouthwash] 15 ml PO TID 06/06/16 [History] Nystatin [Mycostatin] 5 ml PO QID PRN 06/06/16 [History] Magnesium Amino Acid Chelate [Magnesium] 64 mg PO DAILY 08/29/16 [History] Pantoprazole Sodium [Protonix] 40 mg PO DAILY 08/29/16 [History] Nystatin [Nystatin Crm] 30 gm TOP BID PRN 08/30/16 [History] Metoprolol Tartrate [Lopressor] 12.5 mg PO Q12HR #60 tablet 09/01/16 [Rx] Patient Handouts: Heart-Healthy Eating Plan, [id number], Heart Failure, Easy- to-Read, Second-Degree Atrioventricular Block, Heartbeats (How the Heart Works) Forms: ED Department Discharge Referrals: Katelyn Edwards MD [Primary Care Provider] - 09/09/16 2:00 pm (please follow up [facility] Katelyn Edwards on September 09 at 2pm) Sarika Alexis PA-C [Ordering Only Provider] - (Please call [phone] to schedule appt. in [place] needs to be done in one month. Tried to get appt. in [place] but was unable due to schedule full it would not be til October or November.) - Patient Data Vitals - Most Recent: Last Vital Signs Temp 98.2 F 09/01/16 07:54 Pulse 73 09/01/16 07:54 Resp 16 09/01/16 07:54 BP 149/79 H 09/01/16 07:54 Pulse Ox 95 09/01/16 07:54 Weight - Most Recent: 207 lb 12.8 oz I&O - Last 24 hours: Intake & Output 08/31/16 09/01/16 09/01/16 22:59 06:59 14:59 Intake Total 830 600 120 Balance 830 600 120 Lab Results - Last 24 hrs: Laboratory Results - last 24 hr 08/31/16 08/31/16 09/01/16 Range/Units 16:49 20:41 06:06 WBC 52.54 H (4.23-9.07) K/mm3 RBC 2.64 L (4.63-6.08) M/mm3 Hgb 8.5 L (13.7-17.5) gm/L Hct 27.6 L (40.1-51.0) % MCV 104.5 H (79.0-92.2) fl MCH 32.2 (25.7-32.2) pg MCHC 30.8 L (32.2-35.5) g/dl RDW Std Deviation 72.2 H (35.1-43.9) fL Plt Count 114 L (163-337) K/mm3 MPV 9.0 L (9.4-12.3) fl Neut % (Auto) Cancelled Lymph % (Auto) Cancelled [place] % (Auto) Cancelled Eos % (Auto) Cancelled Baso % (Auto) Cancelled Neut # (Auto) Cancelled Lymph # (Auto) Cancelled [place] # (Auto) Cancelled Eos # (Auto) Cancelled Baso # (Auto) Cancelled Neutrophils % (Manual) 7 L (40-60) % Band Neutrophils % 0 (0-10) % Lymphocytes % (Manual) 91 H (20-40) % Monocytes % (Manual) 0 L (2-10) % Eosinophils % (Manual) 0 L (0.8-7.0) % Basophils % (Manual) 0 L (0.2-1.2) Differential Comment See note Manual Slide Review Cancelled Platelet Estimate See note Polychromasia 1+ slight Hypochromasia 1+ slight Anisocytosis 1+ slight Macrocytosis 1+ slight RBC Morph Comment Not Reportable PT (8.0-13.0) SECONDS INR Sodium (136-145) mEq/L Potassium (3.5-5.1) mEq/L Chloride (98-107) mEq/L Carbon Dioxide (21-32) mEq/L Anion Gap (5-15) BUN (7-18) mg/dL Creatinine (0.7-1.3) mg/dL Est Cr Clr Drug Dosing mL/min Estimated GFR (MDRD) (>60) mL/min BUN/Creatinine Ratio (14-18) Glucose (83-115) mg/dL POC Glucose 126 H 136 H (83-110) mg/dL Calcium (8.5-10.1) mg/dL Magnesium (1.8-2.4) mg/dl 09/01/16 09/01/16 09/01/16 Range/Units 06:06 06:06 06:11 WBC (4.23-9.07) K/mm3 RBC (4.63-6.08) M/mm3 Hgb (13.7-17.5) gm/L Hct (40.1-51.0) % MCV (79.0-92.2) fl MCH (25.7-32.2) pg MCHC (32.2-35.5) g/dl RDW Std Deviation (35.1-43.9) fL Plt Count (163-337) K/mm3 MPV (9.4-12.3) fl Neut % (Auto) Lymph % (Auto) [place] % (Auto) Eos % (Auto) Baso % (Auto) Neut # (Auto) Lymph # (Auto) [place] # (Auto) Eos # (Auto) Baso # (Auto) Neutrophils % (Manual) (40-60) % Band Neutrophils % (0-10) % Lymphocytes % (Manual) (20-40) % Monocytes % (Manual) (2-10) % Eosinophils % (Manual) (0.8-7.0) % Basophils % (Manual) (0.2-1.2) Differential Comment Manual Slide Review Platelet Estimate Polychromasia Hypochromasia Anisocytosis Macrocytosis RBC Morph Comment PT 15.0 H (8.0-13.0) SECONDS INR 1.35 Sodium 141 (136-145) mEq/L Potassium 4.0 (3.5-5.1) mEq/L Chloride 106 (98-107) mEq/L Carbon Dioxide 25 (21-32) mEq/L Anion Gap 14.0 (5-15) BUN 13 (7-18) mg/dL Creatinine 1.1 (0.7-1.3) mg/dL Est Cr Clr Drug Dosing 51.82 mL/min Estimated GFR (MDRD) > 60 (>60) mL/min BUN/Creatinine Ratio 11.8 L (14-18) Glucose 126 H (83-115) mg/dL POC Glucose 120 H (83-110) mg/dL Calcium 8.6 (8.5-10.1) mg/dL Magnesium 1.9 (1.8-2.4) mg/dl Med Orders - Current: Current Medications Acetaminophen (Tylenol) 650 mg PO Q4H PRN PRN Reason: Pain Last Admin: 09/01/16 11:48 Dose: 650 mg Bumetanide (Bumex) 2 mg PO BID PRN PRN Reason: chf Donepezil HCl (Aricept) 10 mg PO BEDTIME KAREN Last Admin: 08/31/16 20:36 Dose: 10 mg Enoxaparin Sodium (Lovenox) 80 mg SUBCUT DAILY [facility] Last Admin: 09/01/16 09:29 Dose: 80 mg Finasteride (Proscar) 5 mg PO DAILY [facility] Last Admin: 09/01/16 09:28 Dose: 5 mg Gabapentin (Neurontin) 300 mg PO BEDTIME [facility] Last Admin: 08/31/16 20:36 Dose: 300 mg Insulin Aspart (Novolog) 0 unit SUBCUT QIDACANDBED [facility] PRN Reason: Protocol Last Admin: 09/01/16 06:11 Dose: Not Given Loperamide HCl (Imodium) 2 mg PO DAILY PRN PRN Reason: Diarrhea Last Admin: 08/31/16 18:15 Dose: 2 mg Magnesium Oxide (Magnesium Oxide) 400 mg PO DAILY [facility] Last Admin: 09/01/16 09:29 Dose: 400 mg Nystatin (Mycostatin) 5 ml PO QID PRN PRN Reason: Pain Pantoprazole Sodium (Protonix) 40 mg PO DAILY@0700 [facility] Last Admin: 09/01/16 06:09 Dose: 40 mg Fesoterodine Fumarate [Toviaz] 4 Mg 0 each PO DAILY [facility] Last Admin: 09/01/16 09:30 Dose: 1 each Imatinib [Gleevec] (600 Mg) 0 each PO DAILY [facility] Last Admin: 09/01/16 09:31 Dose: 1 each Potassium Chloride (Klor-Con M20) 20 meq PO TID [facility] Last Admin: 09/01/16 09:29 Dose: 20 meq Sodium Chloride (Saline Flush) 10 ml FLUSH ASDIRECTED PRN PRN Reason: Keep Vein Open Last Admin: 08/29/16 17:23 Dose: 10 ml Tamsulosin HCl (Flomax) 0.4 mg PO DAILY [facility] Last Admin: 09/01/16 09:29 Dose: 0.4 mg Temazepam (Restoril) 15 mg PO BEDTIME PRN PRN Reason: Sleep Last Admin: 08/31/16 20:36 Dose: 15 mg Warfarin Sodium (Coumadin) 7.5 mg PO DAILY@1800 [facility] Last Admin: 08/31/16 18:10 Dose: 7.5 mg Discontinued Medications Sodium Chloride (Normal Saline) 500 mls @ 999 mls/hr IV .BOLUS ONE Stop: 08/29/16 17:38 Last Admin: 08/29/16 17:20 Dose: 999 mls/hr Sodium Chloride (Normal Saline) 1,000 mls @ 75 mls/hr IV ASDIRECTED [facility] Last Infusion: 08/30/16 07:40 Dose: 0 mls/hr Magnesium Sulfate 2 gm/ Premix 50 mls @ 25 mls/hr IV ONETIME ONE Stop: 08/30/16 10:05 Last Admin: 08/30/16 08:28 Dose: 25 mls/hr Magnesium Sulfate 2 gm/ Premix 50 mls @ 25 mls/hr IV ONETIME ONE Stop: 08/31/16 16:57 Last Admin: 08/31/16 16:27 Dose: 25 mls/hr Non-Formulary Medication (Diphenhyd/Lidocaine/Nystatin) 15 ml PO TID [facility] Last Admin: 08/29/16 22:23 Dose: Not Given Ondansetron HCl (Zofran) 4 mg IVPUSH ONETIME ONE Stop: 08/29/16 17:09 Last Admin: 08/29/16 17:20 Dose: 4 mg Diphenhyd/Lidocaine/ (Nystatin) 0 each PO TID [facility] Last Admin: 08/30/16 08:30 Dose: Not Given Simvastatin (Zocor) 10 mg PO BEDTIME [facility] Last Admin: 08/29/16 21:24 Dose: 10 mg Original Note: <Ariella Brenner - Last Filed: 09/01/16 14:00> Discharge Summary - Hospital Course Free Text/Narrative:: 80-year-old male presents to the ED with generalized weakness, dizziness, low energy has been worsening over the past several days. He does have dementia so not able to give a real precise history. Much of the information is coming from family. He does have history of insulin-dependent diabetes, coronary artery disease, chronic atrophic fibrillation, congestive heart failure, CML and CLL and anemia associated with those problems. He has had intermittent blood transfusions in the past when his blood gets too low. On evaluation has heart rate below 50 BPM. EKG documents complete heart block, digoxin level 0.7. Hospitalist service is consulted for admission. He is admitted to ICU to follow hemodynamics without AV [place] agents on board. Heart rates did respond without dig, cardizem and metoprolol, however he is with paroxysmal atrial fibrillation without any medications on board; rates are between 60-90 on telemetry 48 hours after cessation of [place] blocking agents. Heart block had completely resolved. Symptoms of weakness, dizziness have resolved. Pacemaker implantation was discussed with patient and family, he initially declines but may reconsider "later". Cardiology consult will be made as outpatient. He will be discharged with 48 hour holter monitor, metoprolol 12.5mg BID to keep afib controlled. He will continue on Coumadin, recheck INR in one week. Results of Holter and INR will be sent to PCP, Dr. Edwarsd. He will also follow up with PCP within one week - Discharge Data Discharge Date: 09/01/16 (admit date: 08/29/16) Discharge Disposition: Home, W Home Health Agency 06 Condition: Good - Discharge Diagnosis/Problem(s) (1) Heart block SNOMED Code(s): 842999679 ICD Code: I45.9 - CONDUCTION DISORDER, UNSPECIFIED Status: Resolved Priority: High (2) Congestive heart failure SNOMED Code(s): 05720098 ICD Code: I50.9 - HEART FAILURE, UNSPECIFIED Status: Resolved Priority: High Qualifiers: Congestive heart failure chronicity: acute on chronic (3) Near syncope SNOMED Code(s): 738224290 ICD Code: R55 - SYNCOPE AND COLLAPSE Status: Resolved Priority: High (4) Renal insufficiency syndrome SNOMED Code(s): 246305795, 133202114 ICD Code: N28.9 - DISORDER OF KIDNEY AND URETER, UNSPECIFIED Status: Chronic Priority: High (5) CML (chronic myelocytic leukemia) SNOMED Code(s): 21922234 ICD Code: C92.10 - CHRONIC MYELOID LEUK, BCR/ABL-POSITIVE, NOT ACHIEVE REMIS Status: Chronic (6) CLL (chronic lymphocytic leukemia) SNOMED Code(s): 28036736 ICD Code: C91.10 - CHRONIC LYMPHOCYTIC LEUK OF B-CELL TYPE NOT ACHIEVE REMIS Status: Chronic Priority: Medium - Patient Summary/Data Operative Procedure(s) Performed: None Complications: None Consults: Consultations 08/30/16 09:00 Consult to Sr. Manager Marketing [CONS] Routine OT Evaluation and Treatment [CONS] Routine PT Evaluation and Treatment [CONS] Routine Labs Pending at D/C: None Recommended Follow-up Testing/Procedures: Follow up with Cardiology as scheduled Follow up with Dr. Edwards within one week of discharge; 48 hour Holter monitor results to PCP, INR in one week with results to Dr. Edwards Planned Operative Procedure(s) after DC: None Hospital Course: As above - Patient Instructions Diet: Heart Healthy Diet, Diabetic Diet Activity: As Tolerated Driving: Do Not Drive Showering/Bathing: May Shower Notify Provider of: Fever, Increased Pain, Nausea and/or Vomiting (shortness of breath, chest pain, dizziness) - Discharge Plan Prescriptions/Med Rec: Metoprolol Tartrate [Lopressor] 12.5 mg PO Q12HR #60 tablet Home Medications: Home Meds Acetaminophen [Tylenol] 650 mg PO Q4H PRN 04/02/14 [History] Donepezil [Aricept] 10 mg PO BEDTIME 04/02/14 [History] Fesoterodine Fumarate [Toviaz] 4 mg PO DAILY 04/02/14 [History] Finasteride 5 mg PO DAILY 04/02/14 [History] Imatinib [Gleevec] 600 mg PO DAILY 04/02/14 [History] Mag Hydrox/Al Hydrox/Simeth [Mag-Al Plus XS] 30 ml PO Q4H PRN 04/02/14 [History] Meclizine [Antivert] 25 mg PO TID PRN 04/02/14 [History] Melatonin 3 mg PO BEDTIME 04/02/14 [History] Sennosides/Docusate Sodium [Senna S Tablet] 2 tab PO DAILY PRN 04/02/14 [History ] Tamsulosin [Flomax] 0.4 mg PO DAILY 04/02/14 [History] sitaGLIPtin Phosphate [Januvia] 50 mg PO DAILY 04/02/14 [History] Warfarin [Coumadin] 7.5 mg PO DAILY 10/06/14 [History] Acetaminophen 650 mg PO BEDTIME 03/15/16 [History] Gabapentin [Neurontin] 300 mg PO BID 03/15/16 [History] Loperamide HCl [Anti-Diarrheal] 2 mg PO DAILY PRN MDD 8 03/15/16 [History] Multivitamin [Multivitamins] 1 each PO DAILY 03/15/16 [History] Potassium Chloride [Klor-Con M20] 20 meq PO TID 03/16/16 [History] Bumetanide 2 mg PO DAILY 06/06/16 [History] Diphenhyd/Lidocaine/Nystatin [Magic Mouthwash] 15 ml PO TID 06/06/16 [History] Nystatin [Mycostatin] 5 ml PO QID PRN 06/06/16 [History] Magnesium Amino Acid Chelate [Magnesium] 64 mg PO DAILY 08/29/16 [History] Pantoprazole Sodium [Protonix] 40 mg PO DAILY 08/29/16 [History] Nystatin [Nystatin Crm] 30 gm TOP BID PRN 08/30/16 [History] Metoprolol Tartrate [Lopressor] 12.5 mg PO Q12HR #60 tablet 09/01/16 [Rx] Patient Handouts: Heart-Healthy Eating Plan, [id number], Heart Failure, Easy- to-Read, Second-Degree Atrioventricular Block, Heartbeats (How the Heart Works) Forms: ED Department Discharge Referrals: Katelyn Edwards MD [Primary Care Provider] - 09/09/16 2:00 pm (please follow up [facility] Katelyn Edwards on September 09 at 2pm) Sarika Alexis PA-C [Ordering Only Provider] - (Please call [phone] to schedule appt. in [place] needs to be done in one month. Tried to get appt. in [place] but was unable due to schedule full it would not be til October or November.) - Discharge Summary/Plan Comment DC Time >30 min.: Yes (40 min) - General Info Date of Service: 09/01/16 Admission Dx/Problem (Free Text: Admission Diagnosis/Problem Admission Diagnosis/Problem Heart block Functional Status: Reports: pain controlled, tolerating diet, ambulating, urinating. Denies: new symptoms - Review of Systems General: Reports: No Symptoms. Denies: Weakness (resolved) HEENT: Reports: no symptoms Pulmonary: Reports: no symptoms. Denies: shortness of breath, cough Cardiovascular: Reports: No Symptoms. Denies: Chest Pain, Palpitations, Dyspnea on Exertion, Lightheadedness Gastrointestinal: Reports: No symptoms Genitourinary: Reports: no symptoms Psychiatric: Reports: no symptoms - Patient Data Vitals - Most Recent: Last Vital Signs Temp 98.2 F 09/01/16 07:54 Pulse 73 09/01/16 07:54 Resp 16 09/01/16 07:54 BP 149/79 H 09/01/16 07:54 Pulse Ox 95 09/01/16 07:54 Weight - Most Recent: 94.256 kg I&O - Last 24 hours: Intake & Output 08/31/16 09/01/16 09/01/16 22:59 06:59 14:59 Intake Total 830 600 Balance 830 600 Lab Results - Last 24 hrs: Laboratory Results - last 24 hr 08/31/16 08/31/16 08/31/16 Range/Units 07:19 07:19 16:49 WBC 46.06 H (4.23-9.07) K/mm3 RBC 2.57 L (4.63-6.08) M/mm3 Hgb 8.5 L (13.7-17.5) gm/L Hct 27.1 L (40.1-51.0) % MCV 105.4 H (79.0-92.2) fl MCH 33.1 H (25.7-32.2) pg MCHC 31.4 L (32.2-35.5) g/dl RDW Std Deviation 73.4 H (35.1-43.9) fL Plt Count 109 L (163-337) K/mm3 MPV 9.3 L (9.4-12.3) fl Neut % (Auto) Lymph % (Auto) [place] % (Auto) Eos % (Auto) Baso % (Auto) Neut # (Auto) Lymph # (Auto) [place] # (Auto) Eos # (Auto) Baso # (Auto) Neutrophils % (Manual) 6 L (40-60) % Band Neutrophils % 1 (0-10) % Lymphocytes % (Manual) 89 H (20-40) % Monocytes % (Manual) 0 L (2-10) % Eosinophils % (Manual) 0 L (0.8-7.0) % Basophils % (Manual) 0 L (0.2-1.2) Differential Comment See note Manual Slide Review Platelet Estimate See note Polychromasia 1+ slight Hypochromasia Anisocytosis 1+ slight Macrocytosis 1+ slight RBC Morph Comment Not Reportable PT 16.2 H (8.0-13.0) SECONDS INR 1.45 Sodium (136-145) mEq/L Potassium (3.5-5.1) mEq/L Chloride (98-107) mEq/L Carbon Dioxide (21-32) mEq/L Anion Gap (5-15) BUN (7-18) mg/dL Creatinine (0.7-1.3) mg/dL Est Cr Clr Drug Dosing mL/min Estimated GFR (MDRD) (>60) mL/min BUN/Creatinine Ratio (14-18) Glucose (83-115) mg/dL POC Glucose 126 H (83-110) mg/dL Calcium (8.5-10.1) mg/dL Magnesium (1.8-2.4) mg/dl 08/31/16 09/01/16 09/01/16 Range/Units 20:41 06:06 06:06 WBC 52.54 H (4.23-9.07) K/mm3 RBC 2.64 L (4.63-6.08) M/mm3 Hgb 8.5 L (13.7-17.5) gm/L Hct 27.6 L (40.1-51.0) % MCV 104.5 H (79.0-92.2) fl MCH 32.2 (25.7-32.2) pg MCHC 30.8 L (32.2-35.5) g/dl RDW Std Deviation 72.2 H (35.1-43.9) fL Plt Count 114 L (163-337) K/mm3 MPV 9.0 L (9.4-12.3) fl Neut % (Auto) Cancelled Lymph % (Auto) Cancelled [place] % (Auto) Cancelled Eos % (Auto) Cancelled Baso % (Auto) Cancelled Neut # (Auto) Cancelled Lymph # (Auto) Cancelled [place] # (Auto) Cancelled Eos # (Auto) Cancelled Baso # (Auto) Cancelled Neutrophils % (Manual) 7 L (40-60) % Band Neutrophils % 0 (0-10) % Lymphocytes % (Manual) 91 H (20-40) % Monocytes % (Manual) 0 L (2-10) % Eosinophils % (Manual) 0 L (0.8-7.0) % Basophils % (Manual) 0 L (0.2-1.2) Differential Comment See note Manual Slide Review Cancelled Platelet Estimate See note Polychromasia 1+ slight Hypochromasia 1+ slight Anisocytosis 1+ slight Macrocytosis 1+ slight RBC Morph Comment Not Reportable PT (8.0-13.0) SECONDS INR Sodium 141 (136-145) mEq/L Potassium 4.0 (3.5-5.1) mEq/L Chloride 106 (98-107) mEq/L Carbon Dioxide 25 (21-32) mEq/L Anion Gap 14.0 (5-15) BUN 13 (7-18) mg/dL Creatinine 1.1 (0.7-1.3) mg/dL Est Cr Clr Drug Dosing 51.82 mL/min Estimated GFR (MDRD) > 60 (>60) mL/min BUN/Creatinine Ratio 11.8 L (14-18) Glucose 126 H (83-115) mg/dL POC Glucose 136 H (83-110) mg/dL Calcium 8.6 (8.5-10.1) mg/dL Magnesium 1.9 (1.8-2.4) mg/dl 09/01/16 Range/Units 06:11 WBC (4.23-9.07) K/mm3 RBC (4.63-6.08) M/mm3 Hgb (13.7-17.5) gm/L Hct (40.1-51.0) % MCV (79.0-92.2) fl MCH (25.7-32.2) pg MCHC (32.2-35.5) g/dl RDW Std Deviation (35.1-43.9) fL Plt Count (163-337) K/mm3 MPV (9.4-12.3) fl Neut % (Auto) Lymph % (Auto) [place] % (Auto) Eos % (Auto) Baso % (Auto) Neut # (Auto) Lymph # (Auto) [place] # (Auto) Eos # (Auto) Baso # (Auto) Neutrophils % (Manual) (40-60) % Band Neutrophils % (0-10) % Lymphocytes % (Manual) (20-40) % Monocytes % (Manual) (2-10) % Eosinophils % (Manual) (0.8-7.0) % Basophils % (Manual) (0.2-1.2) Differential Comment Manual Slide Review Platelet Estimate Polychromasia Hypochromasia Anisocytosis Macrocytosis RBC Morph Comment PT (8.0-13.0) SECONDS INR Sodium (136-145) mEq/L Potassium (3.5-5.1) mEq/L Chloride (98-107) mEq/L Carbon Dioxide (21-32) mEq/L Anion Gap (5-15) BUN (7-18) mg/dL Creatinine (0.7-1.3) mg/dL Est Cr Clr Drug Dosing mL/min Estimated GFR (MDRD) (>60) mL/min BUN/Creatinine Ratio (14-18) Glucose (83-115) mg/dL POC Glucose 120 H (83-110) mg/dL Calcium (8.5-10.1) mg/dL Magnesium (1.8-2.4) mg/dl Med Orders - Current: Current Medications Acetaminophen (Tylenol) 650 mg PO Q4H PRN PRN Reason: Pain Last Admin: 08/31/16 20:36 Dose: 650 mg Bumetanide (Bumex) 2 mg PO BID PRN PRN Reason: chf Donepezil HCl (Aricept) 10 mg PO BEDTIME [facility] Last Admin: 08/31/16 20:36 Dose: 10 mg Enoxaparin Sodium (Lovenox) 80 mg SUBCUT DAILY [facility] Last Admin: 08/31/16 09:21 Dose: 80 mg Finasteride (Proscar) 5 mg PO DAILY [facility] Last Admin: 08/31/16 09:21 Dose: 5 mg Gabapentin (Neurontin) 300 mg PO BEDTIME [facility] Last Admin: 08/31/16 20:36 Dose: 300 mg Insulin Aspart (Novolog) 0 unit SUBCUT QIDACANDBED [facility] PRN Reason: Protocol Last Admin: 09/01/16 06:11 Dose: Not Given Loperamide HCl (Imodium) 2 mg PO DAILY PRN PRN Reason: Diarrhea Last Admin: 08/31/16 18:15 Dose: 2 mg Magnesium Oxide (Magnesium Oxide) 400 mg PO DAILY [facility] Last Admin: 08/31/16 09:23 Dose: 400 mg Nystatin (Mycostatin) 5 ml PO QID PRN PRN Reason: Pain Pantoprazole Sodium (Protonix) 40 mg PO DAILY@0700 [facility] Last Admin: 09/01/16 06:09 Dose: 40 mg Fesoterodine Fumarate [Toviaz] 4 Mg 0 each PO DAILY [facility] Last Admin: 08/31/16 10:13 Dose: 1 each Imatinib [Gleevec] (600 Mg) 0 each PO DAILY [facility] Last Admin: 08/31/16 10:14 Dose: 1 each Potassium Chloride (Klor-Con M20) 20 meq PO TID [facility] Last Admin: 08/31/16 20:36 Dose: 20 meq Sodium Chloride (Saline Flush) 10 ml FLUSH ASDIRECTED PRN PRN Reason: Keep Vein Open Last Admin: 08/29/16 17:23 Dose: 10 ml Tamsulosin HCl (Flomax) 0.4 mg PO DAILY [facility] Last Admin: 08/31/16 09:21 Dose: 0.4 mg Temazepam (Restoril) 15 mg PO BEDTIME PRN PRN Reason: Sleep Last Admin: 08/31/16 20:36 Dose: 15 mg Warfarin Sodium (Coumadin) 7.5 mg PO DAILY@1800 [facility] Last Admin: 08/31/16 18:10 Dose: 7.5 mg Discontinued Medications Sodium Chloride (Normal Saline) 500 mls @ 999 mls/hr IV .BOLUS ONE Stop: 08/29/16 17:38 Last Admin: 08/29/16 17:20 Dose: 999 mls/hr Sodium Chloride (Normal Saline) 1,000 mls @ 75 mls/hr IV ASDIRECTED [facility] Last Infusion: 08/30/16 07:40 Dose: 0 mls/hr Magnesium Sulfate 2 gm/ Premix 50 mls @ 25 mls/hr IV ONETIME ONE Stop: 08/30/16 10:05 Last Admin: 08/30/16 08:28 Dose: 25 mls/hr Magnesium Sulfate 2 gm/ Premix 50 mls @ 25 mls/hr IV ONETIME ONE Stop: 08/31/16 16:57 Last Admin: 08/31/16 16:27 Dose: 25 mls/hr Non-Formulary Medication (Diphenhyd/Lidocaine/Nystatin) 15 ml PO TID [facility] Last Admin: 08/29/16 22:23 Dose: Not Given Ondansetron HCl (Zofran) 4 mg IVPUSH ONETIME ONE Stop: 08/29/16 17:09 Last Admin: 08/29/16 17:20 Dose: 4 mg Diphenhyd/Lidocaine/ (Nystatin) 0 each PO TID [facility] Last Admin: 08/30/16 08:30 Dose: Not Given Simvastatin (Zocor) 10 mg PO BEDTIME [facility] Last Admin: 08/29/16 21:24 Dose: 10 mg - Exam Quality Assessment: Reports: DVT prophylaxis General: Reports: alert, cooperative, no acute distress HEENT: Reports: Pupils equal, Pupils reactive, EOMI Lungs: Reports: Clear to auscultation, Normal respiratory effort, Decreased breath sounds (bases bilat) Cardiovascular: Reports: Irregular Rhythm Abdomen: Reports: bowel sounds present, soft, no tenderness, no distension (Male) Exam: Deferred Rectal (Males) Exam: Deferred Extremities: Reports: edema (trace bilat LE) Neurological: Reports: no new focal deficit Psy/Mental Status: Reports: alert, normal affect, normal mood *Q Meaningful Use (DIS) - VTE *Q VTE Criteria *Q: - Stroke *Q Stroke Criteria *Q: - AMI *Q AMI Criteria *Q: <Brittany Prasad - Last Filed: 09/13/16 10:51> Discharge Summary - Hospital Course Free Text/Narrative:: SSS/symptomatic bradycardia, responded to therapy with increase of HR; see above.. - Discharge Diagnosis/Problem(s) (1) Anemia SNOMED Code(s): 387760902 ICD Code: D64.9 - ANEMIA, UNSPECIFIED Status: Acute (2) CLL (chronic lymphocytic leukemia) SNOMED Code(s): 37064061 ICD Code: C91.10 - CHRONIC LYMPHOCYTIC LEUK OF B-CELL TYPE NOT ACHIEVE REMIS Status: Chronic Priority: Medium (3) CML (chronic myelocytic leukemia) SNOMED Code(s): 98988793 ICD Code: C92.10 - CHRONIC MYELOID LEUK, BCR/ABL-POSITIVE, NOT ACHIEVE REMIS Status: Chronic (4) Heart block SNOMED Code(s): 310123971 ICD Code: I45.9 - CONDUCTION DISORDER, UNSPECIFIED Status: Resolved Priority: High (5) Near syncope SNOMED Code(s): 729993772 ICD Code: R55 - SYNCOPE AND COLLAPSE Status: Resolved Priority: High (6) Renal insufficiency syndrome SNOMED Code(s): 201757224, 038670150 ICD Code: N28.9 - DISORDER OF KIDNEY AND URETER, UNSPECIFIED Status: Chronic Priority: High - Patient Summary/Data Consults: Consultations 08/30/16 09:00 Consult to Sr. Manager Marketing [CONS] Routine OT Evaluation and Treatment [CONS] Routine PT Evaluation and Treatment [CONS] Routine - Patient Data Vitals - Most Recent: Last Vital Signs Temp 36.8 C 09/01/16 07:54 Pulse 73 09/01/16 07:54 Resp 16 06/07/17 07:54 BP 149/79 H 09/01/16 07:54 Pulse Ox 95 09/01/16 07:54 Med Orders - Current: Current Medications Discontinued Medications Acetaminophen (Tylenol) 650 mg PO Q4H PRN PRN Reason: Pain Last Admin: 09/01/16 11:48 Dose: 650 mg Bumetanide (Bumex) 2 mg PO BID PRN PRN Reason: chf Donepezil HCl (Aricept) 10 mg PO BEDTIME [facility] Last Admin: 08/31/16 20:36 Dose: 10 mg Enoxaparin Sodium (Lovenox) 80 mg SUBCUT DAILY [facility] Last Admin: 09/01/16 09:29 Dose: 80 mg Finasteride (Proscar) 5 mg PO DAILY [facility] Last Admin: 09/01/16 09:28 Dose: 5 mg Gabapentin (Neurontin) 300 mg PO BEDTIME [facility] Last Admin: 08/31/16 20:36 Dose: 300 mg Sodium Chloride (Normal Saline) 500 mls @ 999 mls/hr IV .BOLUS ONE Stop: 08/29/16 17:38 Last Admin: 08/29/16 17:20 Dose: 999 mls/hr Sodium Chloride (Normal Saline) 1,000 mls @ 75 mls/hr IV ASDIRECTED [facility] Last Infusion: 08/30/16 07:40 Dose: 0 mls/hr Magnesium Sulfate 2 gm/ Premix 50 mls @ 25 mls/hr IV ONETIME ONE Stop: 08/30/16 10:05 Last Admin: 08/30/16 08:28 Dose: 25 mls/hr Magnesium Sulfate 2 gm/ Premix 50 mls @ 25 mls/hr IV ONETIME ONE Stop: 08/31/16 16:57 Last Admin: 08/31/16 16:27 Dose: 25 mls/hr Insulin Aspart (Novolog) 0 unit SUBCUT QIDACANDBED [facility] PRN Reason: Protocol Last Admin: 09/01/16 06:11 Dose: Not Given Loperamide HCl (Imodium) 2 mg PO DAILY PRN PRN Reason: Diarrhea Last Admin: 08/31/16 18:15 Dose: 2 mg Magnesium Oxide (Magnesium Oxide) 400 mg PO DAILY [facility] Last Admin: 09/01/16 09:29 Dose: 400 mg Non-Formulary Medication (Diphenhyd/Lidocaine/Nystatin) 15 ml PO TID [facility] Last Admin: 08/29/16 22:23 Dose: Not Given Nystatin (Mycostatin) 5 ml PO QID PRN PRN Reason: Pain Ondansetron HCl (Zofran) 4 mg IVPUSH ONETIME ONE Stop: 08/29/16 17:09 Last Admin: 08/29/16 17:20 Dose: 4 mg Pantoprazole Sodium (Protonix) 40 mg PO DAILY@0700 [facility] Last Admin: 09/01/16 06:09 Dose: 40 mg Fesoterodine Fumarate [Toviaz] 4 Mg 0 each PO DAILY [facility] Last Admin: 09/01/16 09:30 Dose: 1 each Imatinib [Gleevec] (600 Mg) 0 each PO DAILY [facility] Last Admin: 09/01/16 09:31 Dose: 1 each Diphenhyd/Lidocaine/ (Nystatin) 0 each PO TID [facility] Last Admin: 08/30/16 08:30 Dose: Not Given Potassium Chloride (Klor-Con M20) 20 meq PO TID [facility] Last Admin: 09/01/16 09:29 Dose: 20 meq Simvastatin (Zocor) 10 mg PO BEDTIME [facility] Last Admin: 08/29/16 21:24 Dose: 10 mg Sodium Chloride (Saline Flush) 10 ml FLUSH ASDIRECTED PRN PRN Reason: Keep Vein Open Last Admin: 08/29/16 17:23 Dose: 10 ml Tamsulosin HCl (Flomax) 0.4 mg PO DAILY [facility] Last Admin: 09/01/16 09:29 Dose: 0.4 mg Temazepam (Restoril) 15 mg PO BEDTIME PRN PRN Reason: Sleep Last Admin: 08/31/16 20:36 Dose: 15 mg Warfarin Sodium (Coumadin) 7.5 mg PO DAILY@1800 [facility] Last Admin: 08/31/16 18:10 Dose: 7.5 mg *Q Meaningful Use (DIS) - VTE *Q VTE Criteria *Q: - Stroke *Q Stroke Criteria *Q: - AMI *Q AMI Criteria *Q:
[2016-09-01] MEDS: Finasteride 5 MG Tab PO SCH (09:28)
[2016-09-01] MEDS: Magnesium Oxide 400 MG Tab PO SCH (09:29)
[2016-09-01] MEDS: Potassium Chloride 20 MEQ Tab.ER PO SCH (09:29)
[2016-09-01] MEDS: Enoxaparin 80 MG/0.8 ML Syringe SUBCUT SCH (09:29)
[2016-09-01] MEDS: Tamsulosin 0.4 MG Cap.ER PO SCH (09:29)
[2016-09-01] MEDS: Fesoterodine Fumarate [Toviaz] 4 MG PO SCH (09:30)
[2016-09-01] MEDS: IMATINIB PO SCH (09:31)
[2016-09-01] MEDS: Acetaminophen 325 MG Tab PO PRN (11:48)
== END 2016-09-01 11:50 | disposition home health service (06) | DRG 309 ==
LOC: EDBD 16:22 → JD.ED 16:22 → JD.ICU 20:13 → JD.MS 08-31 18:41
PROVIDERS: ADMIT Internal Medicine Cardiovascular Disease; ATTEND Internal Medicine Cardiovascular Disease
DX: I44.30 Unspecified atrioventricular block (principal); I45.9 Conduction disorder, unspecified; C92.10 Chronic myeloid leukemia, BCR/ABL-positive, not having achieved remission; C91.10 Chronic lymphocytic leukemia of B-cell type not having achieved remission; D64.89 Other specified anemias; I50.9 Heart failure, unspecified; R55 Syncope and collapse; N28.9 Disorder of kidney and ureter, unspecified; F03.90 Unspecified dementia, unspecified severity, without behavioral disturbance, psychotic disturbance, mood disturbance, and anxiety; E11.9 Type 2 diabetes mellitus without complications; Z79.4 Long term (current) use of insulin; I25.10 Atherosclerotic heart disease of native coronary artery without angina pectoris; D63.8 Anemia in other chronic diseases classified elsewhere; Z79.01 Long term (current) use of anticoagulants; K21.9 Gastro-esophageal reflux disease without esophagitis; I48.91 Unspecified atrial fibrillation; E78.00 Pure hypercholesterolemia, unspecified; N40.0 Benign prostatic hyperplasia without lower urinary tract symptoms; N18.3 Chronic kidney disease, stage 3 (moderate); M25.562 Pain in left knee
CPT/HCPCS: 36415; 71010; 73564; 80053; 80162; 81001; 83880; 84484; 85025; 85610; 93005; 96361; 96374; 99285; J2405; J7040; J7050; 80048; 82553; 82962; 83735; 87641; 97110-GO; 97110-GP; 97112-GP; 97116-GP; 97162-GP; 97166-GO; 97530-GO; 97535-GO; 99284; A9270-GY; J1650; J1815-GY; J3475

== ENCOUNTER 2016-10-21 18:10 | Emergency (ER) | payer MEDICARE, OTHER ==
[2016-10-21 18:21] VITALS: BP 136/58
[2016-10-21] MEDS ORDERED: Phytonadione 10 MG in Sodium Chloride 0.9% 50 ML IV ONE (18:59)
[2016-10-21] MEDS ORDERED: Acetaminophen 325 MG Tab PO ONE (19:56)
--- NOTE | 2016-10-21 20:02 | EDM.PDOC ---
ED HPI GENERAL MEDICAL PROBLEM - General Chief Complaint: Head Injury Stated Complaint: CAT SCAN BLEEDING IN BRAIN Time Seen by Provider: 10/21/16 18:25 - History of Present Illness INITIAL COMMENTS - FREE TEXT/NARRATIVE: 81-year-old male sent over from the [facility] with a subdural hematoma. The patient has had increased difficulty with increased confusion and difficulty ambulation. The patient was staying the assisted living center that had been going skilled nursing because of increased difficulty with ambulation and increased confusion. There is no apparent history of head injury however the patient has been on Coumadin long-term for atrial fibrillation this was recently stopped anticipating skin cancer surgery however this was postponed because of the patient's declining medical status. The patient was seen for follow-up on his CLL by the oncologist here in [place] and they decided to do a CAT scan which showed bilateral subdural hematomas subacute to chronic in appearance but the radiologist favored acute process because blood products layering out in the dependent areas he has an approximate 4 mm right to left shift measured at the septum pellucidum headache Pain Score (Numeric/FACES): 4 - Related Data Allergies Allergy/AdvReac Type Severity Reaction Status Date / Time No Known Allergies Allergy Verified 10/21/16 18:21 Home Meds: Home Meds Acetaminophen [Tylenol] 650 mg PO QID PRN 04/02/14 [History] Donepezil [Aricept] 10 mg PO BEDTIME 04/02/14 [History] Fesoterodine Fumarate [Toviaz] 4 mg PO DAILY 04/02/14 [History] Finasteride 5 mg PO DAILY 04/02/14 [History] Mag Hydrox/Al Hydrox/Simeth [Mag-Al Plus XS] 30 ml PO Q4H PRN 04/02/14 [History] Meclizine [Antivert] 25 mg PO TID PRN 04/02/14 [History] Sennosides/Docusate Sodium [Senna S Tablet] 2 tab PO DAILY PRN 04/02/14 [History ] Tamsulosin [Flomax] 0.4 mg PO DAILY 04/02/14 [History] sitaGLIPtin Phosphate [Januvia] 50 mg PO DAILY 04/02/14 [History] Warfarin [Coumadin] 10 mg PO SUTUTHSA 10/06/14 [History] Acetaminophen 325 mg PO QID PRN 03/15/16 [History] Gabapentin [Neurontin] 300 mg PO BID 03/15/16 [History] Loperamide HCl [Anti-Diarrheal] 2 mg PO DAILY PRN MDD 8 03/15/16 [History] Multivitamin [Multivitamins] 1 each PO DAILY 03/15/16 [History] Potassium Chloride [Klor-Con M20] 20 meq PO TID 03/16/16 [History] Bumetanide 4 mg PO BID 06/06/16 [History] Diphenhyd/Lidocaine/Nystatin [Magic Mouthwash] 15 ml PO TID PRN 06/06/16 [ History] Nystatin [Mycostatin] 5 ml PO QID PRN 06/06/16 [History] Pantoprazole Sodium [Protonix] 40 mg PO DAILY 08/29/16 [History] Nystatin [Nystatin Crm] 30 gm TOP BID PRN 08/30/16 [History] Acyclovir [Zovirax 5% Crm] 1 applic TOP ASDIRECTED PRN 10/21/16 [History] Bacitracin [Bacitracin Oint 1 GM] 1 applic TOP BID 10/21/16 [History] Cyanocobalamin (Vitamin B12) [Vitamin B12] 1,000 mg PO DAILY 10/21/16 [History] L. Acidophilus/Pectin, [place] [Acidophilus Probiotic] 1 cap PO DAILY 10/21/16 [ History] Magnesium Chloride [Mag-64] 64 mg PO DAILY 10/21/16 [History] Melatonin/Pyridoxine HCl (B6) [Melatonin 3 mg Tablet] 1 tab PO QPM 10/21/16 [ History] Metoprolol Tartrate [Lopressor] 50 mg PO BID 10/21/16 [History] Psyllium Husk 1 tbsp PO DAILY 10/21/16 [History] atorvaSTATin [Lipitor] 10 mg PO DAILY 10/21/16 [History] Past Medical History HEENT History: Reports: None, Impaired Vision Other HEENT History: eyeglasses Cardiovascular History: Reports: Afib, Heart Failure, High Cholesterol, Hypertension, Pulmonary Hypertension Respiratory History: Reports: Sleep Apnea Other Respiratory History: uses a c-pap Gastrointestinal History: Reports: GERD Genitourinary History: Reports: BPH, Renal Calculus Other Genitourinary History: pt is incontinent. wears biefs Musculoskeletal History: Reports: Arthritis Other Musculoskeletal History: uses walker Neurological History: Reports: Other (See Below) Other Neuro History: memory impairment Psychiatric History: Reports: Anxiety Endocrine/Metabolic History: Reports: Diabetes, Type II Hematologic History: Reports: Anemia Other Hematologic History: CLL: leukemia hx Oncologic (Cancer) History: Reports: Leukemia Other Oncologic History: CLL: leukemia recent diagnosis of exacerbation of his CLL. pt has had one round of chemo but did not tolerate well. Dermatologic History: Reports: Melanoma - Infectious Disease History Infectious Disease History: Reports: C-Difficile, Shingles - Past Surgical History Head Surgeries/Procedures: Reports: None HEENT Surgical History: Reports: None Cardiovascular Surgical History: Reports: None GI Surgical History: Reports: Appendectomy, Colonoscopy Musculoskeletal Surgical History: Reports: Knee Replacement Dermatological Surgical History: Reports: Skin Biopsy Social & Family History - Family History Family Medical History: Noncontributory - Tobacco Use Smoking Status *Q: Never Smoker Second Hand Smoke Exposure: No - Caffeine Use Caffeine Use: Reports: None Other Caffeine Use: 2 cups coffee - Alcohol Use Days Per Week of Alcohol Use: 0 Number of Drinks Per Day: 0 Total Drinks Per Week: 0 - Recreational Drug Use Recreational Drug Use: No - Living Situation & Occupation Living situation: Reports: Alone, Extended Care Facility, Other Occupation: Retired ED ROS GENERAL - Review of Systems Review Of Systems: See Below Constitutional: Reports: Weakness, Fatigue HEENT: Reports: No Symptoms Respiratory: Reports: No Symptoms Cardiovascular: Reports: No Symptoms GI/Abdominal: Reports: No Symptoms, Decreased Appetite Neurological: Reports: Confusion, Difficulty Walking, Weakness Psychiatric: Reports: Confusion ED EXAM, HEAD INJURY - Physical Exam Exam: See Below Exam Limited By: No Limitations General Appearance: No Apparent Distress Head: Atraumatic, Normocephalic Nexus Criteria: Altered Level of Consciousness. No: Posterior, Midline Cervical Tenderness, Evidence of Intoxication, Focal Neurological Deficit, Painful Distraction Injuries Eyes: Bilateral Eye: Normal Inspection, PERRL Neck: Non-Tender, Full Range of Motion Respiratory: No Respiratory Distress, Lungs Clear, Normal Breath Sounds Cardiovascular: Regular Rate, Rhythm, No Edema, No Murmur GI/Abdominal Exam: Normal Bowel Sounds, Soft, Non-Tender Back Exam: Normal Inspection. No: CVA Tenderness (L), CVA Tenderness (R) Extremities: No Pedal Edema, Other (Support hose in place the patient is having some left leg pain this is kind of a chronic problem. However this is not bothering him for the last couple of days according to the family that is back tonight) Neurologic: Motor Weakness, Other (Neuro exam is difficult at this time) Course - Vital Signs Last Recorded V/S: Last Vital Signs Temp 37.0 C 10/21/16 18:10 Pulse 86 10/21/16 18:10 Resp 18 10/21/16 18:10 BP 136/58 L 10/21/16 18:10 Pulse Ox 97 10/21/16 18:10 - Orders/Labs/Meds Meds: Medications Discontinued Medications Generic Name Dose Route Start Last Admin Trade Name Lit PRN Reason Stop Dose Admin Acetaminophen 650 mg 10/21/16 19:56 10/21/16 20:01 Tylenol PO 10/21/16 19:57 650 mg NOW ONE Administration Phytonadione 10 mg/ Sodium 51 mls @ 100 mls/hr 10/21/16 18:59 10/21/16 19:23 Chloride IV 10/21/16 19:29 100 mls/hr NOW ONE Administration - Re-Assessments/Exams Free Text/Narrative Re-Assessment/Exam: 10/21/16 20:06 With have records available from [facility] the case was discussed with [facility] 1 call initially the case was discussed with Dr. Cordova with neurosurgery who recommended vitamin K only. He wanted the patient admitted to the hospitalist service. The case was discussed with who did accept the patient as a direct admission. Patient received 10 mg of IV vitamin K here. Awaiting transfer at this time Departure - Departure Time of Disposition: 19:08 Disposition: DC/Tfer to Acute Hospital 02 Clinical Impression: Bilateral subdural hematomas - Discharge Information Forms: ED Department Discharge
== END 2016-10-21 20:21 ==
LOC: JD.ED 18:10
DX: S06.5X0A Traumatic subdural hemorrhage without loss of consciousness, initial encounter (principal); I11.0 Hypertensive heart disease with heart failure; I50.9 Heart failure, unspecified; E78.00 Pure hypercholesterolemia, unspecified; G47.30 Sleep apnea, unspecified; K21.9 Gastro-esophageal reflux disease without esophagitis; M19.90 Unspecified osteoarthritis, unspecified site; F41.9 Anxiety disorder, unspecified; E11.9 Type 2 diabetes mellitus without complications; Z87.442 Personal history of urinary calculi; Z85.820 Personal history of malignant melanoma of skin; Z90.49 Acquired absence of other specified parts of digestive tract; Z96.659 Presence of unspecified artificial knee joint; Z79.899 Other long term (current) drug therapy; X58.XXXA Exposure to other specified factors, initial encounter
CPT/HCPCS: 96365; 99285; A9270; J3430; J7050; 99284

== ENCOUNTER 2016-11-17 15:38 | Emergency (ER) | payer MEDICARE, OTHER ==
[2016-11-17 16:32] VITALS: BP 118/55
[2016-11-17] MEDS ORDERED: Sodium Chloride 0.9% 10 ML Syringe FLUSH PRN (17:35)
--- NOTE | 2016-11-17 17:56 | EDM.PDOC ---
ED HPI GENERAL MEDICAL PROBLEM - General Chief Complaint: Neurological Problem Stated Complaint: HEAD INJURY/FELL ON TUESDAY Time Seen by Provider: 11/17/16 17:24 Source of Information: Reports: Patient, Family, Alf Records, RN Notes Reviewed - History of Present Illness INITIAL COMMENTS - FREE TEXT/NARRATIVE: 81 year old male brought to ED for eval of increased confusion, possible increased weakness L hand and arm. Hx of epidural and subdural hemorhage about 1 month ago requiring right sided drainage. Has been in correction doing OK with some chronic confusion. He fell out of his wheel chair 3 days ago hitting L forehead. [facility] Home staff and family concerned about possible recurrent hemorhage. He was on coumadin but that was stopped at the time of his hemorhage 1 month ago. He has no Kim today, no recent nausea or vomiting. No chest pain or difficulty breathing. - Related Data Allergies Allergy/AdvReac Type Severity Reaction Status Date / Time No Known Allergies Allergy Verified 11/17/16 20:29 Home Meds: Home Meds Acetaminophen [Tylenol] 650 mg PO QID PRN 04/02/14 [History] Donepezil [Aricept] 10 mg PO BEDTIME 04/02/14 [History] Fesoterodine Fumarate [Toviaz] 4 mg PO DAILY 04/02/14 [History] Finasteride 5 mg PO DAILY 04/02/14 [History] Mag Hydrox/Al Hydrox/Simeth [Mag-Al Plus XS] 30 ml PO Q4H PRN 04/02/14 [History] Meclizine [Antivert] 25 mg PO TID PRN 04/02/14 [History] Sennosides/Docusate Sodium [Senna S Tablet] 2 tab PO DAILY PRN 04/02/14 [History ] Tamsulosin [Flomax] 0.4 mg PO DAILY 04/02/14 [History] Acetaminophen 325 mg PO QID PRN 03/15/16 [History] Gabapentin [Neurontin] 300 mg PO BID 03/15/16 [History] Loperamide HCl [Anti-Diarrheal] 2 mg PO DAILY PRN MDD 8 03/15/16 [History] Multivitamin [Multivitamins] 1 each PO DAILY 03/15/16 [History] Potassium Chloride [Klor-Con M20] 20 meq PO BID 03/16/16 [History] Bumetanide 4 mg PO BID 06/06/16 [History] Diphenhyd/Lidocaine/Nystatin [Magic Mouthwash] 15 ml PO TID PRN 06/06/16 [ History] Nystatin [Mycostatin] 5 ml PO QID PRN 06/06/16 [History] Pantoprazole Sodium [Protonix] 40 mg PO DAILY 08/29/16 [History] Nystatin [Nystatin Crm] 30 gm TOP BID PRN 08/30/16 [History] Acyclovir [Zovirax 5% Crm] 1 applic TOP ASDIRECTED PRN 10/21/16 [History] Bacitracin [Bacitracin Oint 1 GM] 1 applic TOP BID 10/21/16 [History] Cyanocobalamin (Vitamin B12) [Vitamin B12] 1,000 mg PO DAILY 10/21/16 [History] L. Acidophilus/Pectin, [place] [Acidophilus Probiotic] 1 cap PO DAILY 10/21/16 [ History] Magnesium Chloride [Mag-64] 64 mg PO DAILY 10/21/16 [History] Melatonin/Pyridoxine HCl (B6) [Melatonin 3 mg Tablet] 1 tab PO QPM 10/21/16 [ History] Metoprolol Tartrate [Lopressor] 50 mg PO BID 10/21/16 [History] Psyllium Husk 1 tbsp PO DAILY 10/21/16 [History] Digoxin [Lanoxin] 125 mcg PO DAILY 11/04/16 [History] Metoprolol Succinate [Toprol XL] 50 mg PO BID 11/04/16 [History] atorvaSTATin [Lipitor] 10 mg PO BEDTIME 11/04/16 [History] SitaGLIPtin [Januvia] 50 mg PO DAILY 11/17/16 [History] Spironolactone [Aldactone] 25 mg PO DAILY 11/17/16 [History] Past Medical History HEENT History: Reports: None, Impaired Vision Other HEENT History: eyeglasses Cardiovascular History: Reports: Afib, Heart Failure, High Cholesterol, Hypertension, Pulmonary Hypertension Respiratory History: Reports: Sleep Apnea Other Respiratory History: uses a c-pap Gastrointestinal History: Reports: GERD Genitourinary History: Reports: BPH, Renal Calculus Other Genitourinary History: pt is incontinent. wears biefs Musculoskeletal History: Reports: Arthritis Other Musculoskeletal History: uses walker Neurological History: Reports: Other (See Below) Other Neuro History: memory impairment Psychiatric History: Reports: Anxiety Endocrine/Metabolic History: Reports: Diabetes, Type II Hematologic History: Reports: Anemia Other Hematologic History: CLL: leukemia hx Oncologic (Cancer) History: Reports: Leukemia Other Oncologic History: CLL: leukemia recent diagnosis of exacerbation of his CLL. pt has had one round of chemo but did not tolerate well. Dermatologic History: Reports: Melanoma - Infectious Disease History Infectious Disease History: Reports: C-Difficile, Shingles - Past Surgical History Head Surgeries/Procedures: Reports: None HEENT Surgical History: Reports: None Cardiovascular Surgical History: Reports: None GI Surgical History: Reports: Appendectomy, Colonoscopy Musculoskeletal Surgical History: Reports: Knee Replacement Dermatological Surgical History: Reports: Skin Biopsy Social & Family History - Family History Family Medical History: Noncontributory - Tobacco Use Smoking Status *Q: Never Smoker Second Hand Smoke Exposure: No - Caffeine Use Caffeine Use: Reports: Coffee Other Caffeine Use: 2 cups coffee - Alcohol Use Days Per Week of Alcohol Use: 0 Number of Drinks Per Day: 0 Total Drinks Per Week: 0 - Recreational Drug Use Recreational Drug Use: No - Living Situation & Occupation Living situation: Reports: Alone, Extended Care Facility, Other Occupation: Retired ED ROS GENERAL - Review of Systems Review Of Systems: See Below Constitutional: Denies: Fever, Chills, Diaphoresis HEENT: Reports: No Symptoms Respiratory: Denies: Shortness of Breath, Pleuritic Chest Pain, Cough Cardiovascular: Reports: Lightheadedness. Denies: Chest Pain GI/Abdominal: Denies: Abdominal Pain, Nausea, Vomiting Musculoskeletal: Denies: Shoulder Pain, Arm Pain Skin: Denies: Diaphoresis, Rash, Change in Color Neurological: Reports: Dizziness, Weakness (L hand and arm, chronic, possibly worse today). Denies: Numbness, Tingling Psychiatric: Reports: Confusion (chronic, possibly worse today) - Physical Exam Exam: See Below General Appearance: Alert, No Apparent Distress Eye Exam: Bilateral Eye: PERRL Throat/Mouth: Normal Inspection, Normal Oropharynx Head Exam: Scalp Ecchymosis (small area of erythema and mild bruising L forehead. no facial swelling or tenderness at this tie) Neck: Supple Respiratory/Chest: No Respiratory Distress, Lungs Clear, Normal Breath Sounds Cardiovascular: Regular Rate, Rhythm, Systolic Murmur GI/Abdominal: Soft, Non-Tender Neuro Exam (Abbreviated): Alert, Sensory/Motor Deficit (very mild weakness L hand and arm compared to the right), Other (answering questions fairly appropriately but does have short term memory loss, mild confussion) Extremities: Normal Inspection, Normal Range of Motion. No: Pedal Edema, Leg Pain Skin Exam: Warm, Dry, Normal Color Course - Vital Signs Last Recorded V/S: Last Vital Signs Temp 97.7 F 11/17/16 16:31 Pulse 69 11/17/16 16:31 Resp 20 11/17/16 16:31 BP 118/55 L 11/17/16 16:31 Pulse Ox 96 11/17/16 16:31 - Orders/Labs/Meds Orders: Active Orders 24 hr Category Date Time Status Peripheral IV Care [RC] . DIRECTED Care 11/17/16 17:35 Active Peripheral IV Insertion Adult [OM.PC] Stat Oth 11/17/16 17:35 Ordered Labs: Laboratory Tests 11/17/16 11/17/16 11/17/16 Range/Units 18:05 18:05 18:05 WBC 191.47 H* (4.23-9.07) K/mm3 RBC 3.29 L (4.63-6.08) M/mm3 Hgb 10.1 L (13.7-17.5) gm/L Hct 33.6 L (40.1-51.0) % MCV 102.1 H (79.0-92.2) fl MCH 30.7 (25.7-32.2) pg MCHC 30.1 L (32.2-35.5) g/dl RDW Std Deviation 59.0 H (35.1-43.9) fL Plt Count 175 (163-337) K/mm3 MPV 8.9 L (9.4-12.3) fl Neut % (Auto) Cancelled Lymph % (Auto) Cancelled [place] % (Auto) Cancelled Eos % (Auto) Cancelled Baso % (Auto) Cancelled Neut # (Auto) Cancelled Lymph # (Auto) Cancelled [place] # (Auto) Cancelled Eos # (Auto) Cancelled Baso # (Auto) Cancelled Neutrophils % (Manual) 2 L (40-60) % Band Neutrophils % 0 (0-10) % Lymphocytes % (Manual) 97 H (20-40) % Atypical Lymphs % 0 % Monocytes % (Manual) 1 L (2-10) % Eosinophils % (Manual) 0 L (0.8-7.0) % Basophils % (Manual) 0 L (0.2-1.2) Manual Slide Review Cancelled WBC Morphology Comment Platelet Estimate Adequate Plt Morphology Comment Normal Anisocytosis 1+ sligh RBC Morph Comment Not Reportable PT 11.2 (8.0-13.0) SECONDS INR 1.03 Sodium 139 (136-145) mEq/L Potassium 4.5 (3.5-5.1) mEq/L Chloride 98 (98-107) mEq/L Carbon Dioxide 36 H (21-32) mEq/L Anion Gap 9.5 (5-15) BUN 26 H (7-18) mg/dL Creatinine 1.6 H (0.7-1.3) mg/dL Est Cr Clr Drug Dosing 36.21 mL/min Estimated GFR (MDRD) 42 (>60) mL/min BUN/Creatinine Ratio 16.3 (14-18) Glucose 131 H (83-115) mg/dL Calcium 9.8 (8.5-10.1) mg/dL Total Bilirubin 0.5 (0.2-1.0) mg/dL AST 26 (15-37) U/L ALT 27 (16-63) U/L Alkaline Phosphatase 79 (46-116) U/L Total Protein 6.6 (6.4-8.2) g/dl Albumin 2.9 L (3.4-5.0) g/dl Globulin 3.7 gm/dL Albumin/Globulin Ratio 0.8 L (1-2) Meds: Medications Discontinued Medications Generic Name Dose Route Start Last Admin Trade Name Freq PRN Reason Stop Dose Admin Sodium Chloride 10 ml 11/17/16 17:35 Saline Flush FLUSH ASDIRECTED PRN Keep Vein Open - Re-Assessments/Exams Free Text/Narrative Re-Assessment/Exam: 11/18/16 07:[address] did not show and evidence for acute hemorhage, WBC very elevated, 191, 000, see labs and Radiology report for details. Family states he has an appt. to see his Oncologist11/18, 1 day from time of ED visit. Discharge instr. as documented. Departure - Departure Time of Disposition: 19:02 Disposition: DC/Tfer to [facility] Condition: Fair Clinical Impression: Weakness Fall Qualifiers: Encounter type: initial encounter Qualified Code(s): W19.XXXA - Unspecified fall, initial encounter Forehead contusion Qualifiers: Encounter type: initial encounter Qualified Code(s): S00.83XA - Contusion of other part of head, initial encounter - Discharge Information Instructions: Near-Syncope, Contusion, [id number] Referrals: Katelyn Edwards MD [Primary Care Provider] - Forms: ED Department Discharge Additional Instructions: continue present careand meds, drink plenty of water to maintain hydration. See Dr Caldera tomorrow as planned, bring head CT report with you for that appt. The head CT tonight does not show acute hemorhage or stroke. WBC this evening is 191,000. - My Orders Last 24 Hours: My Active Orders 11/17/16 17:35 Peripheral IV Care [RC] . DIRECTED Peripheral IV Insertion Adult [OM.PC] Stat - Assessment/Plan Last 24 Hours: My Active Orders 11/17/16 17:35 Peripheral IV Care [RC] . DIRECTED Peripheral IV Insertion Adult [OM.PC] Stat
--- NOTE | 2016-11-17 18:33 | CT ---
Head CT Technique: Multiple axial sections through the brain were obtained. Intravenous contrast was not utilized. Comparison: Previous head CT exam of 11/02/16. Findings: Previous small epidural collection on the left side has significantly decreased in size on current study. Small subdural collection on the right side has also decreased in size. Ventricles along with basal cisterns and sulci over the convexities are moderately prominent. No evidence of acute intracranial hemorrhage. No midline shift or mass effect is seen. Very minimal diminished density is noted within the periventricular white matter which is compatible with small vessel ischemic demyelination change. Atherosclerotic calcification is noted in the left vertebral vessel and within the carotid siphon. Bone window settings were reviewed which shows the paranasal sinuses to appear clear. No acute calvarial abnormality is appreciated. Impression: 1. Previous small epidural collection on the left side has significantly decreased in size on current exam. Subdural collection on the right side has also decreased in size. 2. No acute intracranial hemorrhage is seen. 3. Stable senescent change. 4. Nothing acute is appreciated. Diagnostic code #2
== END 2016-11-17 19:22 ==
LOC: JD.ED 15:38
DX: S00.83XA Contusion of other part of head, initial encounter (principal); I11.0 Hypertensive heart disease with heart failure; I50.9 Heart failure, unspecified; I48.91 Unspecified atrial fibrillation; E78.00 Pure hypercholesterolemia, unspecified; G47.30 Sleep apnea, unspecified; K21.9 Gastro-esophageal reflux disease without esophagitis; F41.9 Anxiety disorder, unspecified; E11.9 Type 2 diabetes mellitus without complications; C91.10 Chronic lymphocytic leukemia of B-cell type not having achieved remission; Z86.2 Personal history of diseases of the blood and blood-forming organs and certain disorders involving the immune mechanism; Z85.820 Personal history of malignant melanoma of skin; Z90.49 Acquired absence of other specified parts of digestive tract; Z98.890 Other specified postprocedural states; Z96.659 Presence of unspecified artificial knee joint; Z79.899 Other long term (current) drug therapy; W05.0XXA Fall from non-moving wheelchair, initial encounter
CPT/HCPCS: 36415; 70450; 70450-26; 80053; 85025; 85610; 99284; 99285-25